=== PATIENT | female | born 1960 | race Caucasian/White ===

== ENCOUNTER 2018-03-18 14:45 | Inpatient (IN) | payer OTHER ==
--- NOTE | 2018-03-18 15:31 | C.PDOC ---
History Of Present Illness 58 year old female is sent to the emergency department by her PCP Dr. Matthews for evaluation of chronic headache for one month and chronic right leg pain for two months. Patient states that she is having difficult walking due to the pain in her right leg. Otherwise, she denies weakness, numbness, fever, chills, nausea, and vomiting. Patient reports that she underwent a breast biopsy with Dr. Cruz on Monday03-16-18. Time Seen by Provider: 03/18/18 15:31 Chief Complaint (Nursing): Breast Problem History Per: Patient History/Exam Limitations: no limitations Onset/Duration Of Symptoms: Other (headache for one month, right leg pain for two months) Current Symptoms Are (Timing): Still Present Past Medical History Reviewed: Historical Data, Nursing Documentation, Vital Signs Vital Signs: Last Vital Signs Temp 98.6 F 03/18/18 14:56 Pulse 79 03/18/18 14:56 Resp 17 03/18/18 14:56 BP 149/93 H 03/18/18 14:56 Pulse Ox 100 03/18/18 14:56 - Medical History PMH: HTN, Hypothyroidism, Rheumatoid Arthritis Surgical History: No Surg Hx Family History: States: No Known Family Hx - Social History Hx Alcohol Use: No Hx Substance Use: No - Immunization History Hx Tetanus Toxoid Vaccination: No Hx Influenza Vaccination: No Hx Pneumococcal Vaccination: No Review Of Systems Except As Marked, All Systems Reviewed And Found Negative. Constitutional: Negative for: Fever, Sweats Gastrointestinal: Negative for: Nausea, Vomiting Musculoskeletal: Positive for: Leg Pain (right leg) Neurological: Positive for: Headache Physical Exam - Physical Exam Appears: Non-toxic, No Acute Distress Skin: Normal Color, Warm, Dry Head: Atraumatic, Normacephalic Eye(s): bilateral: Normal Inspection, PERRL, EOMI Neck: Normal, Supple Chest: Symmetrical, No Tenderness Cardiovascular: Rhythm Regular, No Murmur Respiratory: No Rales, No Rhonchi, No Wheezing Gastrointestinal/Abdominal: Soft, No Tenderness, No Guarding, No Rebound Extremity: Normal ROM, No Tenderness Neurological/Psych: Oriented x3, Normal Speech, Normal Cognition ED Course And Treatment - Laboratory Results Result Diagrams: 03/18/18 16:37 03/18/18 16:37 O2 Sat by Pulse Oximetry: 100 (RA) Pulse Ox Interpretation: Normal Medical Decision Making Medical Decision Making: Plan: Bloodbank Type and Screen CMP Magnesium CBC MRI Brain NaCl IV Fluids [place]land 10mg IVP Valium 2mg PO Patient's MRI showed possible metastasized cancer of the spine. Spoke with Dr. Matthews who requested an MRI of the brain and observation. pt in NAD, agreeable to admission Disposition - Disposition Disposition: HOSPITALIZED Disposition Time: 17:36 Condition: GOOD - Clinical Impression Clinical Impression: Intractable headache - Scribe Statement The provider has reviewed the documentation as recorded by the Scribe (Bridger Lo) Provider Attestation: All medical record entries made by the Scribe were at my direction and personally dictated by me. I have reviewed the chart and agree that the record accurately reflects my personal performance of the history, physical exam, medical decision making, and the department course for this patient. I have also personally directed, reviewed, and agree with the discharge instructions and disposition.
[2018-03-18] MEDS ORDERED: Sodium Chloride 0.9% 1,000 ML ONE (16:25)
[2018-03-18] MEDS: Sodium Chloride 0.9% 1,000 ML IV SCH ×2 (16:35→20:03)
[2018-03-18 16:40] LABS: BASO # 0.1 K/uL (0.0-0.2); EOS # 0.1 K/uL (0.0-0.7); EOS % 2.5 % (0.0-4.0); HEMOGLOBIN 13.6 g/dL (11.0-16.0); LYMPH # 1.8 K/uL (1.0-4.3); LYMPH % 33.8 % (20.0-40.0); MEAN CELL VOLUME 86.9 fL (81.0-99.0); MEAN CORPUSCULAR HEMOGLOBIN 30.5 pg (27.0-31.0); MEAN CORPUSCULAR HGB CONC 35.1 g/dL (33.0-37.0); MONO # 0.4 K/uL (0.0-0.8); MONO % 7.6 % (0.0-10.0); NEUT # 2.9 K/uL (1.8-7.0); NEUT % 55.1 % (50.0-75.0); NRBC % 0.1 % (0.0-2.0); RBC 4.44 Mil/uL (3.80-5.20); RED CELL DISTRIBUTION WIDTH 12.9 % (11.5-14.5); WHITE BLOOD COUNT 5.2 K/uL (4.8-10.8)
[2018-03-18 17:01] LABS: ALB/GLOB RATIO 1.3 (1.0-2.1); ALBUMIN 4.2 g/dL (3.5-5.0); ALT/SGPT 59 U/L (9-52); AST/SGOT 55 U/L (14-36); BLOOD UREA NITROGEN 17 mg/dL (7-17); CALCIUM 9.3 mg/dl (8.6-10.4); GFR NON-AFRICAN AMERICAN > 60
[2018-03-19] MEDS: Sodium Chloride 0.9% 1,000 ML IV SCH ×4 (02:27→19:45)
--- NOTE | 2018-03-19 05:22 | CP.PCM.CON ---
History of Present Illness - History of Present Illness History of Present Illness: General Surgery Consult For Dr. Cruz Consult : R/o inflamatory breast CA This is a 58F with a PMH of HTN, RA, Hypothyroidism. She presents to the ED today due to right sided head pain and leg pain. She reports that the headache has been for the last 2 months. Its worse with extraocular eye motions. He leg pain has began recently she reports that it comes out of no where it is not particularly associated with any kind of physical stimuli. It shoots down the back of her leg in a sciatic distribution and sometimes her knee hurts. She reports she has been seeing Dr. Cruz in her office for redness and heaviness of her right breast. This past week during her visit she reports that she has been started on antifungals. She reports that the erythema has improved however her right breast is heaviness is consistent. She denies any discharge or tenderness. She denies any fevers or chills, chest pain or SOB or any other concerning symptoms. PMH: HTN, Hypothyroid, RA PSH: Right shoulder surgery ALL: Clarithromycin, PCN, Sulfa Social: Denies Vices Review of Systems - Review of Systems Review of Systems: 12 point review of symptoms conducted and negative except where noted above. Past Patient History - Past Social History Smoking Status: Never Smoked - CARDIAC Hx Hypertension: Yes - ENDOCRINE/METABOLIC Hx Hypothyroidism: Yes - MUSCULOSKELETAL/RHEUMATOLOGICAL Hx Rheumatoid Arthritis: Yes - PSYCHIATRIC Hx Substance Use: No Meds Allergies/Adverse Reactions: Allergies Allergy/AdvReac Type Severity Reaction Status Date / Time clarithromycin [From Biaxin] Allergy RASH Verified 03/18/18 15:05 Penicillins Allergy RASH Verified 03/18/18 14:57 Sulfa (Sulfonamide Allergy RASH Verified 03/18/18 14:57 Antibiotics) - Medications Medications: Current Medications Bisoprolol Fumarate/HCTZ (Ziac 2.5-6.25 Mg) 1 tab PO DAILY [facility] Fluconazole (Diflucan) 150 mg PO DAILY [facility] Gabapentin (Neurontin) 100 mg PO BID [facility] Hydroxychloroquine Sulfate (Plaquenil) 200 mg PO BID [facility]; Protocol Sodium Chloride (Sodium Chloride 0.9%) 1,000 mls @ 100 mls/hr IV .Q10H [facility] Last Admin: 03/19/18 05:13 Dose: 100 mls/hr Influenza Virus Vaccine (Fluzone Quad [id number]) 60 mcg IM .ONCE ONE Stop: 03/20/18 10:01 Levothyroxine Sodium (Synthroid) 75 mcg PO DAILY@0630 [facility] Morphine Sulfate (Morphine) 2 mg IVP Q4 PRN PRN Reason: Pain, moderate (4-7) Last Admin: 03/19/18 02:06 Dose: 2 mg Pneumococcal Polyvalent Vaccine (Pneumovax 23 Vaccine) 0.5 ml IM .ONCE ONE Stop: 03/20/18 10:01 Physical Exam - Constitutional Appears: Non-toxic, No Acute Distress - Head Exam Head Exam: ATRAUMATIC, NORMOCEPHALIC - Eye Exam Eye Exam: EOMI - ENT Exam ENT Exam: Mucous Membranes Moist - Respiratory Exam Respiratory Exam: NORMAL BREATHING PATTERN - Cardiovascular Exam Cardiovascular Exam: +S1, +S2 Additional comments: Breast exam conducted with the nurse present. Large breasts, no significant erythema notes, no peude orange noted, no nipple retraction. - GI/Abdominal Exam GI & Abdominal Exam: Soft. absent: Tenderness - Neurological Exam Neurological exam: Alert, Oriented x3 - Psychiatric Exam Psychiatric exam: Normal Affect, Normal Mood - Skin Skin Exam: Dry, Intact Results - Vital Signs Recent Vital Signs: Last Vital Signs Temp 96.7 F L 03/18/18 23:37 Pulse 69 03/18/18 23:37 Resp 18 03/18/18 23:37 BP 100/64 03/18/18 23:37 Pulse Ox 98 03/19/18 02:29 - Labs Result Diagrams: 03/18/18 16:37 03/18/18 16:37 Labs: Laboratory Results - last 24 hr 03/18/18 03/18/18 03/18/18 16:37 16:37 16:37 WBC 5.2 RBC 4.44 Hgb 13.6 Hct 38.6 MCV 86.9 MCH 30.5 MCHC 35.1 RDW 12.9 Plt Count 289 MPV 8.0 Neut % (Auto) 55.1 Lymph % (Auto) 33.8 [place] % (Auto) 7.6 Eos % (Auto) 2.5 Baso % (Auto) 1.0 Neut # (Auto) 2.9 Lymph # (Auto) 1.8 [place] # (Auto) 0.4 Eos # (Auto) 0.1 Baso # (Auto) 0.1 Sodium 138 Potassium 4.0 Chloride 102 Carbon Dioxide 28 Anion Gap 12 BUN 17 Creatinine 0.6 L Est GFR ( Amer) > 60 Est GFR (Non-Af Amer) > 60 Random Glucose 113 H Calcium 9.3 Magnesium 1.9 Total Bilirubin 0.7 AST 55 H ALT 59 H Alkaline Phosphatase 123 Total Protein 7.5 Albumin 4.2 Globulin 3.3 Albumin/Globulin Ratio 1.3 Blood Type A POSITIVE Antibody Screen Negative Assessment & Plan - Assessment and Plan (Free Text) Assessment: 58F with headache, leg pain and complaint of right breast heavyness and erythema Discussed case with Dr. Cruz, recent outpatient imaging viewed in her office show no signs of cancer at this time, patient has been started on antibiotics and antifungasl and has been showing an appropriate response. We will continue current antimicrobial therapy. No surgical intervention at this time. D/W Dr. Anthony Johnson PGY3
[2018-03-19] MEDS: Levothyroxine 75 MCG TAB PO SCH (06:03)
[2018-03-19] MEDS: Bisoprolol-HCTZ 2.5-6.25 mg Tab PO SCH (10:25)
--- NOTE | 2018-03-19 14:05 | CP.PCM.CON ---
<Jonah Murillo - Last Filed: 03/19/18 13:50> History of Present Illness - History of Present Illness History of Present Illness: PGY2 Neuro Consult Note for Dr. Ferrell Reason for consult: Intractable Headache x 1 month Patient is a 58 year old female with a past medical history of HTN, RA and hypothyroidism presenting to the hospital with a complaint of a headache for 1 month and right sided leg pain for 2 months. The headache has been constant and is located on both sides of her temples and is rated a 7 out of 10 on a pain scale. The headache is worse with eye movement and bright lights. Patient has no previous history of headaches or migraines. She has attempted to take Tylenol and Motrin but has little resolution of her symptoms. Patient also reports right sided leg pain that radiates down her buttocks and into her right leg. The pain is located on the posterior and anterior portions of her right leg. She feels weak and is having difficultly walking secondary to the pain. She denies any trauma to the leg. She reports that her doctors informed her that she has an infection in her spine but she does not know what it is from. She is unsure of her diagnosis. Per ED note, an outpatient MRI showed possible mets to the spine. Patient also had a breast biopsy with Dr. Cruz (Surgery) on 03/16/18. Patient denies any fevers, chills, nausea, vomiting, diarrhea, constipation, bladder/bowel incontinence, numbness, tingling or vision changes. PMH: HTN, Hypothyroid, RA PSH: Right shoulder surgery, Right Breast Biopsy (03/16/18) ALL: Clarithromycin, PCN, Sulfa Social: Denies Vices Review of Systems - Review of Systems All systems: reviewed and no additional remarkable complaints except - Constitutional Constitutional: As Per HPI. absent: Chills, Fatigue, Fever - EENT Eyes: As Per HPI, Pain, Photophobia. absent: Change in Vision, Decreased Night Vision, Floaters, Loss of Peripheral Vision - Breasts Breasts: As Per HPI - Cardiovascular Cardiovascular: As Per HPI. absent: Chest Pain - Respiratory Respiratory: As Per HPI. absent: Cough - Gastrointestinal Gastrointestinal: As Per HPI. absent: Abdominal Pain, Constipation, Diarrhea, Nausea, Vomiting - Genitourinary Genitourinary: As Per HPI. absent: Urinary Incontinence - Integumentary Integumentary: As Per HPI - Neurological Neurological: As Per HPI, Abnormal Gait, Headaches, Weakness. absent: Abnormal Hearing, Abnormal Movements, Abnormal Speech, Behavioral Changes, Convulsions, Disequilibrium, Dizziness, Numbness, Frequent Falls, Loss of Vision, Paresthesias, Syncope, Tingling, Tremor, Vertigo - Psychiatric Psychiatric: As Per HPI - Endocrine Endocrine: As Per HPI - Hematologic/Lymphatic Hematologic: As Per HPI Past Patient History - Past Social History Smoking Status: Never Smoked - CARDIAC Hx Hypertension: Yes - ENDOCRINE/METABOLIC Hx Hypothyroidism: Yes - MUSCULOSKELETAL/RHEUMATOLOGICAL Hx Rheumatoid Arthritis: Yes - PSYCHIATRIC Hx Substance Use: No Meds Allergies/Adverse Reactions: Allergies Allergy/AdvReac Type Severity Reaction Status Date / Time clarithromycin [From Biaxin] Allergy RASH Verified 03/18/18 15:05 Penicillins Allergy RASH Verified 03/18/18 14:57 Sulfa (Sulfonamide Allergy RASH Verified 03/18/18 14:57 Antibiotics) - Medications Medications: Current Medications Bisoprolol Fumarate/HCTZ (Ziac 2.5-6.25 Mg) 1 tab PO DAILY [facility] Last Admin: 03/19/18 10:25 Dose: 1 tab Clindamycin HCl (Cleocin) 300 mg PO TID [facility]; Protocol Last Admin: 03/19/18 10:35 Dose: 300 mg Fluconazole (Diflucan) 150 mg PO DAILY [facility] Last Admin: 03/19/18 10:24 Dose: 150 mg Gabapentin (Neurontin) 100 mg PO BID [facility] Last Admin: 03/19/18 10:26 Dose: 100 mg Heparin Sodium (Porcine) (Heparin) 5,000 units SC Q12 [facility] Last Admin: 03/19/18 10:40 Dose: Not Given Hydroxychloroquine Sulfate (Plaquenil) 200 mg PO BID [facility]; Protocol Last Admin: 03/19/18 10:24 Dose: 200 mg Sodium Chloride (Sodium Chloride 0.9%) 1,000 mls @ 100 mls/hr IV .Q10H [facility] Last Admin: 03/19/18 05:13 Dose: 100 mls/hr Influenza Virus Vaccine (Fluzone Quad [id number]) 60 mcg IM .ONCE ONE Stop: 03/20/18 10:01 Ketorolac Tromethamine (Toradol) 30 mg IVP Q6 [facility] Levothyroxine Sodium (Synthroid) 75 mcg PO DAILY@0630 [facility] Last Admin: 03/19/18 06:03 Dose: 75 mcg Metoclopramide HCl (Reglan) 10 mg IVP ACHS [facility] Last Admin: 03/19/18 11:53 Dose: 10 mg Morphine Sulfate (Morphine) 2 mg IVP Q4 PRN PRN Reason: Pain, moderate (4-7) Last Admin: 03/19/18 06:16 Dose: 2 mg Pantoprazole Sodium (Protonix Inj) 40 mg IVP DAILY [facility] Last Admin: 03/19/18 11:53 Dose: 40 mg Pneumococcal Polyvalent Vaccine (Pneumovax 23 Vaccine) 0.5 ml IM .ONCE ONE Stop: 03/20/18 10:01 Physical Exam - Constitutional Appears: Well, Non-toxic, No Acute Distress - Head Exam Head Exam: ATRAUMATIC, NORMAL INSPECTION, NORMOCEPHALIC - Eye Exam Eye Exam: EOMI, Normal appearance, PERRL - ENT Exam ENT Exam: Mucous Membranes Moist - Neck Exam Neck exam: Negative for: Lymphadenopathy, Tenderness - Respiratory Exam Respiratory Exam: NORMAL BREATHING PATTERN. absent: Respiratory Distress - Extremities Exam Extremities exam: Negative for: calf tenderness, pedal edema, tenderness - Neurological Exam Neurological exam: Abnormal Gait, Alert, CN II-XII Intact, Oriented x3 Additional comments: Brisk reflexes on right lower extremity, positive straight leg test, strength 4/5 on right leg, 5/5 on left leg, decreased sensation on right leg compared to left in L3-L5 distribution. - Expanded Neurological Exam Expanded Patient oriented to: person, place, time Speech: Fluid Speech Cranial nerves: EOM's Intact: Normal, Facial Palsey w/Forehead Movement: Normal, Facial Palsey w/o Forehead Movement: Normal, Facial Sensation: Normal, Gag Reflex: Normal, Nystagmus: Normal, Tongue Deviation: Normal Ataxia: No Upper motor neuron: Darian Neglect: Normal, Pronator Drift: Normal Sensory exam: Lower Extremity Light Touch: Abnormal Right (decreased on right leg compared to left leg) Neuro motor strength exam: Left Upper Extremity: 5, Right Upper Extremity: 5, Left Lower Extremity: 5, Right Lower Extremity: 4 DTR: Achilles Tendon Left: 2+, Achilles Tendon Right: 3+, Patellar Left: 2+, Patellar Right: 3+ Coma Scale Eye Opening: SPONTANEOUS Coma Scale Motor Response: OBEYS COMMANDS Coma Scale Verbal: Oriented Coma Scale Total: 15 - Psychiatric Exam Psychiatric exam: Normal Affect, Normal Mood - Skin Skin Exam: Dry, Intact, Normal Color, Warm Results - Vital Signs Recent Vital Signs: Last Vital Signs Temp 97.6 F 03/19/18 08:17 Pulse 59 L 03/19/18 08:17 Resp 20 03/19/18 08:17 BP 138/84 03/19/18 08:17 Pulse Ox 96 03/19/18 08:17 - Labs Result Diagrams: 03/18/18 16:37 03/18/18 16:37 Labs: Laboratory Results - last 24 hr 03/18/18 03/18/18 03/18/18 16:37 16:37 16:37 WBC 5.2 RBC 4.44 Hgb 13.6 Hct 38.6 MCV 86.9 MCH 30.5 MCHC 35.1 RDW 12.9 Plt Count 289 MPV 8.0 Neut % (Auto) 55.1 Lymph % (Auto) 33.8 [place] % (Auto) 7.6 Eos % (Auto) 2.5 Baso % (Auto) 1.0 Neut # (Auto) 2.9 Lymph # (Auto) 1.8 [place] # (Auto) 0.4 Eos # (Auto) 0.1 Baso # (Auto) 0.1 Sodium 138 Potassium 4.0 Chloride 102 Carbon Dioxide 28 Anion Gap 12 BUN 17 Creatinine 0.6 L Est GFR ( Amer) > 60 Est GFR (Non-Af Amer) > 60 Random Glucose 113 H Calcium 9.3 Magnesium 1.9 Total Bilirubin 0.7 AST 55 H ALT 59 H Alkaline Phosphatase 123 Total Protein 7.5 Albumin 4.2 Globulin 3.3 Albumin/Globulin Ratio 1.3 Blood Type A POSITIVE Antibody Screen Negative Assessment & Plan (1) Intractable headache Assessment and Plan: Based on the history obtained from the patient with no personal or family history of migraines, a diagnosis of migraines are less likely. During exam patient appeared well and did not experience any photophobia, pain with eye movement or nausea. Due to distribution of headache will need to r/o temporal arteritis. In addition, we recommend the followin. ESR/CRP 2. Brain MRI w/ and w/o 3. Toradol 30mg IVP q6h Status: Acute (2) Hyperreflexia of lower extremity Assessment and Plan: Hyperreflexia of right leg, pain, decreased sensation and positive straight leg test on right is concerning for possible disk herniation or additional pathology. ED note reports patient has prior MRI that showed possible mets to spine, per PMD. Will obtain lumbo-sacral MRI to further evaluate. Will make additional recommendations once results are obtained. Case discussed and all medical management per Dr. Rod Murillo PGY2 Status: Acute <Ida Ferrell - Last Filed: 03/19/18 23:24> Meds - Medications Medications: Current Medications Bisoprolol Fumarate/HCTZ (Ziac 2.5-6.25 Mg) 1 tab PO DAILY [facility] Last Admin: 03/19/18 10:25 Dose: 1 tab Clindamycin HCl (Cleocin) 300 mg PO TID [facility]; Protocol Last Admin: 03/19/18 18:00 Dose: 300 mg Dexamethasone (Decadron Inj) 4 mg IV Q6 [facility] Fluconazole (Diflucan) 150 mg PO DAILY [facility] Last Admin: 03/19/18 10:24 Dose: 150 mg Gabapentin (Neurontin) 100 mg PO BID [facility] Last Admin: 03/19/18 18:01 Dose: 100 mg Heparin Sodium (Porcine) (Heparin) 5,000 units SC Q12 [facility] Last Admin: 03/19/18 21:41 Dose: 5,000 units Hydroxychloroquine Sulfate (Plaquenil) 200 mg PO BID [facility]; Protocol Last Admin: 03/19/18 18:00 Dose: 200 mg Sodium Chloride (Sodium Chloride 0.9%) 1,000 mls @ 100 mls/hr IV .Q10H [facility] Last Admin: 03/19/18 19:45 Dose: 100 mls/hr Influenza Virus Vaccine (Fluzone Quad [id number]) 60 mcg IM .ONCE ONE Stop: 03/20/18 10:01 Ketorolac Tromethamine (Toradol) 30 mg IVP Q6 [facility] Stop: 03/24/18 18:01 Levothyroxine Sodium (Synthroid) 75 mcg PO DAILY@0630 [facility] Last Admin: 03/19/18 06:03 Dose: 75 mcg Metoclopramide HCl (Reglan) 10 mg IVP ACHS [facility] Last Admin: 03/19/18 21:41 Dose: 10 mg Morphine Sulfate (Morphine) 2 mg IVP Q4 PRN PRN Reason: Pain, moderate (4-7) Last Admin: 03/19/18 06:16 Dose: 2 mg Pantoprazole Sodium (Protonix Inj) 40 mg IVP DAILY [facility] Last Admin: 03/19/18 11:53 Dose: 40 mg Pneumococcal Polyvalent Vaccine (Pneumovax 23 Vaccine) 0.5 ml IM .ONCE ONE Stop: 03/20/18 10:01 Results - Vital Signs Recent Vital Signs: Last Vital Signs Temp 97.4 F L 03/19/18 17:07 Pulse 66 03/19/18 17:07 Resp 20 03/19/18 17:07 BP 133/83 03/19/18 17:07 Pulse Ox 100 03/19/18 17:29 - Labs Result Diagrams: 03/18/18 16:37 03/18/18 16:37 Assessment & Plan - Assessment and Plan (Free Text) Assessment: MRI Brain and MRI Lumbar spine reviewed; MRI Brain shows multiple areas of metastases, including brainstem and cortical regions with significant vasogenic edema. MRI lumbar spine : shows multiple areas of metastases largest one in L3 region. 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 I am concerned that she may have undiagnosed breast ca, thyroid or lung ca. Plan; 1. Decadron 8 mg q [address] chest abdomen and pelvis. with contrast our team will follow Cisco ferrell
--- NOTE | 2018-03-19 17:00 | MRI ---
Date of service: 03/19/2018 PROCEDURE: MRI BRAIN WITH AND WITHOUT CONTRAST HISTORY: intractable DURON COMPARISON: None available. TECHNIQUE: Multiplanar, multisequence MR images of the brain were obtained with and without intravenous contrast enhancement. FINDINGS: HEMORRHAGE: None DWI: No evidence of an acute or early subacute infarction. BRAIN PARENCHYMA: These examination is positive for vasogenic edema related foci scattered mildly involving both cerebellar hemispheres, bilateral frontal lobes, medial left basal ganglia and the right occipital lobe. The largest of these is identified at the right cerebellum measuring 4.1 x 3.4 x 2.9 cm with the next largest identified at the right occipital lobe measuring 1.4 x 1.8 x 1.8 cm (transverse by anteroposterior by superoinferior dimensions). Two left cerebellar foci are under 1 cm size with a 1 cm focus at the medial left basal ganglia/left thalamus and a solitary subcentimeter focus at the right frontal lobe superolaterally and 2 with the left frontal lobe. All foci enhance briskly and most compatible with metastatic disease. Further clinical correlation is advised including search for potential primary malignancy, if unknown. The largest lesion at the right cerebellar hemisphere is the only focus with associated significant mass effect with the 4th ventricle patent but partially effaced. Mass effect is exerted on the right side of the medulla and blanca with deformity of the right blanca apparent. No reactive changes seen in the blanca or the medulla at this time. Otherwise, intervening brain parenchyma as on the unremarkable except for borderline atrophy. VENTRICLES: Unremarkable. No hydrocephalus. CRANIUM: Unremarkable. ORBITS: Grossly unremarkable. PARANASAL SINUSES/MASTOIDS: Clear VASCULAR SYSTEM: Skull base flow voids intact. OTHER FINDINGS: None . IMPRESSION: Findings most compatible with multifocal metastasis above and below the tentorium with dominant lesion 4.1 cm exerting significant mass effect at the blanca and medulla but without reactive changes intrinsically in those portions of the brainstem. Fourth ventricle is partially effaced. No hydrocephalus at this time.
--- NOTE | 2018-03-19 17:17 | MRI ---
Date of service: 03/19/2018 PROCEDURE: MR LUMBAR SPINE WITH AND WITHOUT CONTRAST HISTORY: hyperreflexia and right sided leg pain COMPARISON: None available. TECHNIQUE: Multiecho multiplanar sequences were performed through the lumbar spine with and without the use of intravenous contrast. FINDINGS: Normal lumbar lordosis. Vertebral body heights are preserved. There is a water containing lesion at the S2 vertebral body which is well-circumscribed and does not expand the vertebral body potentially representing a benign nonaggressive solid or cystic lesion. Given brain metastasis identified in separate brain MRI without gadolinium, metastatic lesions not excluded and follow-up nuclear bone scan is recommended. In fact, abnormal signal changes seen in the matter of the sacral alae which may suppress on STIR imaging. A benign hemangioma is appreciate the L1 as well as separate focus at L3 which suppresses on STIR imaging. Conus medullaris unremarkable at the level of L1. Paraspinal soft tissues are unremarkable. No abnormal enhancement. T12-L1: No disc herniation, spinal canal stenosis or neural foraminal narrowing. L1-2: No disc herniation, spinal canal stenosis or neural foraminal narrowing. L2-3: No disc herniation, spinal canal stenosis or neural foraminal narrowing. L3-4: No disc herniation, spinal canal stenosis or neural foraminal narrowing. Minimal circumferential disc bulge identified. L4-5: No disc herniation, spinal canal stenosis or neural foraminal narrowing. Minimal circumferential disc bulge identified. L5-S1: No disc herniation, spinal canal stenosis or neural foraminal narrowing. Minimal circumferential disc bulge identified. OTHER FINDINGS: None. IMPRESSION: 1. No disc herniation or significant central canal or neural foraminal stenosis appreciated throughout the lumbar spine. No fracture or spondylolisthesis. 2. Abnormal matter signal change identified at the sacrum which may be benign but somewhat suspicious particularly at the bilateral sacral alae and follow-up nuclear bone scan is advised to exclude potential metastasis, particularly given brain metastasis seen in brain MRI performed today 03/19/2018.
[2018-03-20] MEDS: Dexamethasone 4 mg/1 ml IV SCH ×5 (00:17→20:39)
--- NOTE | 2018-03-20 02:19 | HP ---
HISTORY OF PRESENT ILLNESS: This is a 58-year-old [place] female with a history of hypothyroidism, hypertension and serologic test positive for systemic lupus, on Plaquenil, presented to my office with symptoms of persistent headache over the past 10 days. The patient's headache was not being relieved by different pain medications including NSAIDs and Tylenol. The patient was referred to emergency room for intractable headache. The patient was given diazepam and metoclopramide and admitted for further management including plan for MRI of the head with and without contrast. The patient denied to have similar headache before. Positive symptoms of nausea, but no vomiting. REVIEW OF SYSTEMS: The patient has pain on the right lower extremity that has been persistent for the past 2-3 weeks. The patient had an MRI as an outpatient that showed degenerative spine disease. The patient also was referred to Surgery two weeks prior to this admission for evaluation of right breast redness and inflammation, for which she was given antibiotics. Other review of systems is negative. ALLERGIES: POSITIVE FOR CLARITHROMYCIN, PENICILLIN AND SULFA. MEDICATIONS: As per MAR, reviewed and ordered. SOCIAL HISTORY: No history of smoking, EtOH or substance abuse. FAMILY HISTORY: Noncontributory. PAST MEDICAL HISTORY: As above. PHYSICAL EXAMINATION: GENERAL: The patient was not in any cardiopulmonary distress. VITAL SIGNS: Blood pressure 138/84, temperature 97.6, respiratory rate 20 and pulse 59. HEENT: Pupils equal and reactive to light. Normal-appearing mucosa of the conjunctivae, oropharynx and nasal membrane mucosa. NECK: Supple. No JVD. No carotid bruit. No lymph node. No thyromegaly. CHEST AND LUNGS: Bilateral symmetrical expansion. Good air exchange. No rales, no rhonchi. CARDIOVASCULAR SYSTEM: PMI not localized. S1, S2. No additional sounds. ABDOMEN: Normoactive bowel sounds. No tenderness. No organomegaly. No masses. EXTREMITIES: No cyanosis, no clubbing, no edema. CENTRAL NERVOUS SYSTEM: Alert, awake, oriented x3. No neurological deficit could be appreciated. ASSESSMENT: 1. Persistent headache. Differential diagnosis includes rule out intracranial mass effect. 2. Hypertension. 3. Hypothyroidism. 4. Right lower extremity referred pain. PLAN: Follow up the MRI of the head and MRI of the lumbar spine. Follow recommendations of the neurologist and Surgery. We will give Toradol for pain and metoclopramide. [facility] MD [facility] # [id number]
[2018-03-20] MEDS: Sodium Chloride 0.9% 1,000 ML IV SCH ×4 (05:41→18:33)
[2018-03-20] MEDS: Levothyroxine 75 MCG TAB PO SCH (05:44)
[2018-03-20] MEDS ORDERED: Pneumococcal 23-Valent Vaccine IM ONE (10:00)
[2018-03-20] MEDS ORDERED: Influenza Vaccine 60 MCG/0.5 ML SYR (3 yr & up) IM ONE (10:00)
--- NOTE | 2018-03-20 10:05 | CP.PCM.CON ---
History of Present Illness - History of Present Illness History of Present Illness: dictated large R cerebellar mass requires urgent extirpation d/w Pt scheduled for AM Past Patient History - Past Social History Smoking Status: Never Smoked - CARDIAC Hx Hypertension: Yes - ENDOCRINE/METABOLIC Hx Hypothyroidism: Yes - MUSCULOSKELETAL/RHEUMATOLOGICAL Hx Rheumatoid Arthritis: Yes - PSYCHIATRIC Hx Substance Use: No Meds Allergies/Adverse Reactions: Allergies Allergy/AdvReac Type Severity Reaction Status Date / Time clarithromycin [From Biaxin] Allergy RASH Verified 03/18/18 15:05 Penicillins Allergy RASH Verified 03/18/18 14:57 Sulfa (Sulfonamide Allergy RASH Verified 03/18/18 14:57 Antibiotics) - Medications Medications: Current Medications Bisoprolol Fumarate/HCTZ (Ziac 2.5-6.25 Mg) 1 tab PO DAILY [facility] Last Admin: 03/19/18 10:25 Dose: 1 tab Clindamycin HCl (Cleocin) 300 mg PO TID [facility]; Protocol Last Admin: 03/19/18 18:00 Dose: 300 mg Dexamethasone (Decadron Inj) 4 mg IV Q6 [facility] Last Admin: 03/20/18 07:01 Dose: Not Given Fluconazole (Diflucan) 150 mg PO DAILY [facility] Last Admin: 03/19/18 10:24 Dose: 150 mg Gabapentin (Neurontin) 100 mg PO BID [facility] Last Admin: 03/19/18 18:01 Dose: 100 mg Heparin Sodium (Porcine) (Heparin) 5,000 units SC Q12 [facility] Last Admin: 03/19/18 21:41 Dose: 5,000 units Hydroxychloroquine Sulfate (Plaquenil) 200 mg PO BID [facility]; Protocol Last Admin: 03/19/18 18:00 Dose: 200 mg Sodium Chloride (Sodium Chloride 0.9%) 1,000 mls @ 100 mls/hr IV .Q10H [facility] Last Admin: 03/20/18 05:41 Dose: 100 mls/hr Ketorolac Tromethamine (Toradol) 30 mg IVP Q6 [facility] Stop: 03/24/18 18:01 Last Admin: 03/20/18 05:45 Dose: 30 mg Levothyroxine Sodium (Synthroid) 75 mcg PO DAILY@0630 [facility] Last Admin: 03/20/18 05:44 Dose: 75 mcg Metoclopramide HCl (Reglan) 10 mg IVP ACHS [facility] Last Admin: 03/20/18 08:26 Dose: Not Given Morphine Sulfate (Morphine) 2 mg IVP Q4 PRN PRN Reason: Pain, moderate (4-7) Last Admin: 03/19/18 06:16 Dose: 2 mg Pantoprazole Sodium (Protonix Inj) 40 mg IVP DAILY [facility] Last Admin: 03/19/18 11:53 Dose: 40 mg Results - Vital Signs Recent Vital Signs: Last Vital Signs Temp 98.5 F 03/20/18 00:00 Pulse 77 03/20/18 00:00 Resp 20 03/20/18 00:00 BP 106/69 03/20/18 00:00 Pulse Ox 97 03/20/18 04:14 - Labs Result Diagrams: 03/18/18 16:37 03/18/18 16:37 Labs: Laboratory Results - last 24 hr 03/20/18 03/20/18 07:11 07:11 ESR 53 H C-Reactive Protein 12.00 H
[2018-03-20] MEDS ORDERED: Iohexol 240 (50 ml) PO ONE (10:15)
[2018-03-20] MEDS: Bisoprolol-HCTZ 2.5-6.25 mg Tab PO SCH (10:59)
--- NOTE | 2018-03-20 11:06 | CP.PCM.PN ---
Subjective - Date & Time of Evaluation Date of Evaluation: 03/20/18 Time of Evaluation: 10:20 - Subjective Subjective: PGY2 Neurology Note for Dr. Velasco Patient seen and examined this morning at bedside. Patient's brain MRI showed mets to the brain with mass effect causing narrowing of the fourth ventricle. She was seen by neurosurgery this morning and was informed that she needs to go to the OR tomorrow morning and for decompression of the fourth ventricle. Patient and her were unaware of the patient's diagnosis of cancer with mets to brain and spine. They are very upset and very nervous. Patient states she is feeling well otherwise and has no complaints at this time. Objective - Vital Signs/Intake and Output Vital Signs (last 24 hours): Temp Pulse Resp BP Pulse Ox 98.5 F 77 20 106/69 97 03/20/18 00:00 03/20/18 00:00 03/20/18 00:00 03/20/18 00:00 03/20/18 04:14 Intake and Output: 03/20/18 03/20/18 06:59 18:59 Intake Total 800 920 Balance 800 920 - Medications Medications: Current Medications Bisoprolol Fumarate/HCTZ (Ziac 2.5-6.25 Mg) 1 tab PO DAILY [facility] Last Admin: 03/20/18 10:59 Dose: 1 tab Clindamycin HCl (Cleocin) 300 mg PO TID [facility]; Protocol Last Admin: 03/20/18 10:59 Dose: 300 mg Dexamethasone (Decadron Inj) 4 mg IV Q6 [facility] Last Admin: 03/20/18 07:01 Dose: Not Given Fluconazole (Diflucan) 150 mg PO DAILY [facility] Last Admin: 03/20/18 10:58 Dose: 150 mg Gabapentin (Neurontin) 100 mg PO BID [facility] Last Admin: 03/20/18 10:57 Dose: 100 mg Heparin Sodium (Porcine) (Heparin) 5,000 units SC Q12 [facility] Last Admin: 03/20/18 10:58 Dose: 5,000 units Hydroxychloroquine Sulfate (Plaquenil) 200 mg PO BID [facility]; Protocol Last Admin: 03/20/18 10:59 Dose: 200 mg Sodium Chloride (Sodium Chloride 0.9%) 1,000 mls @ 100 mls/hr IV .Q10H [facility] Last Admin: 03/20/18 05:41 Dose: 100 mls/hr Levothyroxine Sodium (Synthroid) 75 mcg PO DAILY@0630 [facility] Last Admin: 03/20/18 05:44 Dose: 75 mcg Metoclopramide HCl (Reglan) 10 mg IVP ACHS [facility] Last Admin: 03/20/18 08:26 Dose: Not Given Morphine Sulfate (Morphine) 2 mg IVP Q4 PRN PRN Reason: Pain, moderate (4-7) Last Admin: 03/19/18 06:16 Dose: 2 mg Pantoprazole Sodium (Protonix Inj) 40 mg IVP DAILY [facility] Last Admin: 03/20/18 10:57 Dose: 40 mg - Labs Labs: 03/18/18 16:37 03/18/18 16:37 - Constitutional Appears: No Acute Distress - Head Exam Head Exam: ATRAUMATIC, NORMAL INSPECTION, NORMOCEPHALIC - Eye Exam Eye Exam: EOMI, Normal appearance, PERRL Pupil Exam: NORMAL ACCOMODATION - ENT Exam ENT Exam: Mucous Membranes Moist - Respiratory Exam Respiratory Exam: NORMAL BREATHING PATTERN. 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 Fourth ventricle is partially effaced. No hydrocephalus at this time. Lumbar Spine MRI 03/19/18: No disc herniation or significant central canal or neural foraminal stenosis appreciated throughout the lumbar spine. No fracture or spondylolisthesis. Abnormal matter signal change identified at the sacrum which may be benign but somewhat suspicious particularly at the bilateral sacral alae and follow-up nuclear bone scan is advised to exclude potential metastasis, particularly given brain metastasis seen in brain MRI performed today 03/19/2018. 1. Neuro Surgery planning for decompression of fourth ventricle in AM 2. ICU eval for possible transfer and closer evaluation 3. Decadron 8mg IVP q8h 4. CT Chest, Abd and Pelvis with contrast to evaluation for primary source. Neuro team will continue to follow Case discussed with Dr. Rod Mckenzie Chidi PGY2
[2018-03-20 11:17] LABS: INR 1.1; PROTHROMBIN TIME 12.5 SECONDS (9.7-12.2)
[2018-03-20] MEDS ORDERED: Iodixanol 320 MG/ML 100 ML BOTTLE IV ONE (15:08)
--- NOTE | 2018-03-20 16:29 | CT ---
Date of service: 03/20/2018 CT chest, abdomen, and pelvis with IV contrast Indication: metastases Technique: Contiguous axial images of the chest, abdomen, and pelvis. Coronal and Sagittal reformats generated and reviewed. This CT exam was performed using 1 or more of the following dose reduction techniques: Automated exposure control, adjustment of the MAA and/or kV according to patient size, and/or use of iterative reconstruction technique. Contrast: 100 mL Visipaque IV Radiation dose: Total exam DLP = 769.23 MGy-cm. Comparison: Pelvic ultrasound performed 09/13/17 Findings: Visualized portions of the inferior thyroid gland appear unremarkable. The mediastinal and hilar vascular structures appear within normal limits. The heart appears within normal limits of size. No focal consolidation. No pleural effusion. No pneumothorax. No suspicious pulmonary nodules measuring greater than 5 mm. Marked irregular skin thickening of the right breast with asymmetric breast soft tissue. Right axillary adenopathy measuring up to 2.2 cm in short axis on the right. 6 mm nodule within the medial left breast (series 3, image 65). 15 mm posterior right hepatic lobe hypodense mass. Abnormal appearance of bilateral adrenal glands likely mixture of nodules and hypertrophy. The spleen, pancreas, and gallbladder appear unremarkable. The kidneys enhance symmetrically. No evidence of hydronephrosis or obstructing calculi. The stomach is nondistended. The bowel loops appear within normal limits of caliber without evidence of intestinal obstruction. There is no definite free air. The appendix is not identified. No secondary signs of acute appendicitis. Uterus is present. The urinary bladder appears unremarkable. Small indeterminate lucencies involving the proximal femur, lesser trochanter unclear significance. Impression: Marked irregular skin thickening of the right breast with asymmetric breast soft tissue. 6 mm nodule within the medial left breast. Correlate for history of breast cancer. Recommend correlation with dedicated breast imaging. Right axillary adenopathy measuring up to 2.2 cm in short axis on the right; appearance most consistent with metastatic disease. Indeterminate 15 mm posterior right hepatic lobe hypodense mass. Metastatic disease must be excluded. If indicated, dedicated cross-sectional imaging may be considered. Abnormal appearance of bilateral adrenal glands likely mixture of nodules and hypertrophy. Dedicated adrenal gland CT or MRI may be considered for further characterization. Metastatic disease must be excluded. Small indeterminate lucencies involving the proximal femur, lesser trochanter unclear significance. In the setting of breast cancer, if clinical concern for osseous metastases, recommend further evaluation with nuclear medicine bone scan. Additional findings as above.
--- NOTE | 2018-03-20 16:37 | CP.PCM.CON ---
<RayGómez garcia - Last Filed: 03/20/18 18:05> History of Present Illness - History of Present Illness History of Present Illness: PGY-1 ICU Consult note for Dr. Rae Patient is a 58 year old female with a past medical history of HTN, RA, and hypothyroidism presenting with a headache for 1 month and right sided leg pain for 3 months. The headache has been constant and is located on both sides of her head. The headache is worse with eye movement. Patient has no previous history of headaches or migraines. She has tried to take Tylenol and Motrin but states that they do not help with her symptoms. Patient also reports right sided leg pain that radiates down her buttocks and into her right leg. The pain is located on the posterior and anterior portions of her right leg. She feels weak and is having difficultly walking secondary to the pain. She denies any trauma to the leg. Patient is also complaining of right breast pain that she has had for at least 2 months. She had a mammogram in January that showed mastitis vs inflammatory breast carcinoma. She did not follow up for a breast biopsy or breast MRI yet. Patient denies any fevers, chills, nausea, vomiting, shortness of breath, chest pain, diarrhea, constipation, bladder/bowel incontinence, numbness, tingling or vision changes. PMD: Dr. Matthews PMHx: HTN, Hypothyroid, RA PSHx: Right rotator cuff surgery FMHx: Father had DM-2, denies family history of cancer Allergies: Clarithromycin, PCN, Sulfas, Avalox Social Hx: Denies tobacco, alcohol, and drug use. Patient worked as a clerk travel reservations at [employer] Medications: Levothyroxine 175mg, Hydrochloroquine 200mg, Bisoprolol/HTZ 2.5/6.25mg, Gabapentin 100mg, Protonix 40mg, Nabumetone 500mg Past Patient History - Past Social History Smoking Status: Never Smoked - CARDIAC Hx Hypertension: Yes - ENDOCRINE/METABOLIC Hx Hypothyroidism: Yes - MUSCULOSKELETAL/RHEUMATOLOGICAL Hx Falls: No Hx Rheumatoid Arthritis: Yes - PSYCHIATRIC Hx Substance Use: No Meds Allergies/Adverse Reactions: Allergies Allergy/AdvReac Type Severity Reaction Status Date / Time clarithromycin [From Biaxin] Allergy RASH Verified 03/18/18 15:05 Penicillins Allergy RASH Verified 03/18/18 14:57 Sulfa (Sulfonamide Allergy RASH Verified 03/18/18 14:57 Antibiotics) - Medications Medications: Current Medications Bisoprolol Fumarate/HCTZ (Ziac 2.5-6.25 Mg) 1 tab PO DAILY [facility] Last Admin: 03/20/18 10:59 Dose: 1 tab Clindamycin HCl (Cleocin) 300 mg PO TID [facility]; Protocol Last Admin: 03/20/18 13:56 Dose: 300 mg Dexamethasone (Decadron Inj) 8 mg IV Q8H [facility] Last Admin: 03/20/18 12:40 Dose: 8 mg Fluconazole (Diflucan) 150 mg PO DAILY [facility] Last Admin: 03/20/18 10:58 Dose: 150 mg Gabapentin (Neurontin) 100 mg PO BID [facility] Last Admin: 03/20/18 10:57 Dose: 100 mg Heparin Sodium (Porcine) (Heparin) 5,000 units SC Q12 [facility] Last Admin: 03/20/18 10:58 Dose: 5,000 units Hydroxychloroquine Sulfate (Plaquenil) 200 mg PO BID [facility]; Protocol Last Admin: 03/20/18 10:59 Dose: 200 mg Sodium Chloride (Sodium Chloride 0.9%) 1,000 mls @ 100 mls/hr IV .Q10H [facility] Last Admin: 03/20/18 13:49 Dose: Not Given Levothyroxine Sodium (Synthroid) 75 mcg PO DAILY@0630 [facility] Last Admin: 03/20/18 05:44 Dose: 75 mcg Metoclopramide HCl (Reglan) 10 mg IVP ACHS [facility] Last Admin: 03/20/18 12:46 Dose: Not Given Morphine Sulfate (Morphine) 2 mg IVP Q4 PRN PRN Reason: Pain, moderate (4-7) Last Admin: 03/19/18 06:16 Dose: 2 mg Pantoprazole Sodium (Protonix Inj) 40 mg IVP DAILY [facility] Last Admin: 03/20/18 10:57 Dose: 40 mg Physical Exam - Constitutional Appears: Non-toxic, No Acute Distress - Head Exam Head Exam: ATRAUMATIC, NORMOCEPHALIC - Eye Exam Eye Exam: Normal appearance - ENT Exam ENT Exam: Mucous Membranes Moist - Respiratory Exam Respiratory Exam: Clear to Auscultation Bilateral. absent: Rales, Rhonchi, Wheezes - Cardiovascular Exam Cardiovascular Exam: REGULAR RHYTHM. absent: +S1, +S2, Systolic Murmur - GI/Abdominal Exam GI & Abdominal Exam: Normal Bowel Sounds, Soft. absent: Tenderness - Extremities Exam Extremities exam: Positive for: normal inspection. Negative for: calf tenderness - Neurological Exam Neurological exam: Alert, CN II-XII Intact, Oriented x3 Additional comments: Sensations intact bilateral LE, muscle strength 4/5 on RLE and 5/5 LLE - Psychiatric Exam Psychiatric exam: Depressed, Normal Affect - Skin Skin Exam: Dry, Intact, Normal Color, Warm Results - Vital Signs Recent Vital Signs: Last Vital Signs Temp 98.5 F 03/20/18 00:00 Pulse 77 03/20/18 00:00 Resp 20 03/20/18 00:00 BP 106/69 03/20/18 00:00 Pulse Ox 97 03/20/18 04:14 - Labs Result Diagrams: 03/18/18 16:37 03/18/18 16:37 Labs: Laboratory Results - last 24 hr 03/20/18 03/20/18 03/20/18 07:11 07:11 10:52 ESR 53 H PT 12.5 H INR 1.1 C-Reactive Protein 12.00 H Assessment & Plan - Assessment and Plan (Free Text) Assessment: Patient is a 58 year old female with a past medical history of HTN, RA, and hypo thyroidism presenting with a headache for 1 month and right sided leg pain for 3 months. 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 Fourth ventricle is partially effaced. No hydrocephalus at this time. - Lumbar spine CT (03/19): No disc herniation or significant central canal or n eural foraminal stenosis appreciated throughout the lumbar spine. No fracture or spondylolisthesis. Abnormal matter signal change identified at the sacrum which may be benign but somewhat suspicious particularly at the bilateral sacral alae and follow-up nuclear bone scan is advised to exclude potential metastasis, particularly given brain metastasis seen in brain MRI performed today 03/19/2018. - Neurosurgery consulted, Dr. Bennett - Neurology consulted, Dr. John - Dexamethasone 8mg IV Q8 - Gabapentin 100mg PO BID - Neurosurgery planning for decompression of fourth ventricle in AM - NPO except for meds Pulm: - No acute issues Cardiovascular: - No acute issues Endo: - Continue home medication Levothyroxine 75mg PO QD GI: - Reglan 10mg IV ACHS - CT abd/pelvis/chest (03/20): Indeterminate 15 mm posterior right hepatic lobe hypodense mass. Metastatic disease must be excluded. If indicated, dedicated cross-sectional imaging may be considered. Abnormal appearance of bilateral adrenal glands likely mixture of nodules and hypertrophy. Dedicated adrenal gland CT or MRI may be considered for further characterization. Metastatic disease must be excluded. Small indeterminate lucencies involving the proximal femur, lesser trochanter unclear significance. In the setting of breast cancer, if clinical concern for osseous metastases, recommend further evaluation with nuclear medicine bone scan. - See full report Renal: - No acute issues Heme/onc: - Heme-onc consulted, Dr. Frost - Surgery consulted, Dr. Cruz - CT abd/pelvis/chest (03/20): Marked irregular skin thickening of the right breast with asymmetric breast soft tissue. 6 mm nodule within the medial left b reast. Correlate for history of breast cancer. Recommend correlation with dedicated breast imaging. Right axillary adenopathy measuring up to 2.2 cm in short axis on the right; appearance most consistent with metastatic disease. - See full report ID: - No acute issues Rheum: - Continue home medication for RA, Hydroxychloroquine 200mg PO BID Skin: - Rule out mastitis vs inflammatory breast carcinoma - Clindamycin 300mg PO TID Prophylaxis: - Protonix 40mg IV QD - SCD's - Chemical anticoagulants held for surgery Case discussed with Dr. Butch Peraza, PGY-1 <Vicente Rae S - Last Filed: 03/20/18 19:00> Meds - Medications Medications: Current Medications Bisoprolol Fumarate/HCTZ (Ziac 2.5-6.25 Mg) 1 tab PO DAILY [facility] Last Admin: 03/20/18 10:59 Dose: 1 tab Clindamycin HCl (Cleocin) 300 mg PO TID [facility]; Protocol Last Admin: 03/20/18 17:50 Dose: 300 mg Dexamethasone (Decadron Inj) 8 mg IV Q8H [facility] Last Admin: 03/20/18 12:40 Dose: 8 mg Fluconazole (Diflucan) 150 mg PO DAILY [facility] Last Admin: 03/20/18 10:58 Dose: 150 mg Gabapentin (Neurontin) 100 mg PO BID [facility] Last Admin: 03/20/18 17:49 Dose: 100 mg Hydroxychloroquine Sulfate (Plaquenil) 200 mg PO BID [facility]; Protocol Last Admin: 03/20/18 17:50 Dose: 200 mg Sodium Chloride (Sodium Chloride 0.9%) 1,000 mls @ 100 mls/hr IV .Q10H [facility] Last Admin: 03/20/18 18:33 Dose: Not Given Levothyroxine Sodium (Synthroid) 75 mcg PO DAILY@0630 [facility] Last Admin: 03/20/18 05:44 Dose: 75 mcg Metoclopramide HCl (Reglan) 10 mg IVP ACHS [facility] Last Admin: 03/20/18 17:50 Dose: Not Given Morphine Sulfate (Morphine) 2 mg IVP Q4 PRN PRN Reason: Pain, moderate (4-7) Last Admin: 03/19/18 06:16 Dose: 2 mg Pantoprazole Sodium (Protonix Inj) 40 mg IVP DAILY [facility] Last Admin: 03/20/18 10:57 Dose: 40 mg Results - Vital Signs Recent Vital Signs: Last Vital Signs Temp 98.6 F 03/20/18 17:30 Pulse 98 H 03/20/18 18:10 Resp 21 03/20/18 18:10 BP 154/92 H 03/20/18 18:03 Pulse Ox 96 03/20/18 18:10 - Labs Result Diagrams: 03/18/18 16:37 03/18/18 16:37 Labs: Laboratory Results - last 24 hr 03/20/18 03/20/18 03/20/18 07:11 07:11 10:52 ESR 53 H PT 12.5 H INR 1.1 C-Reactive Protein 12.00 H Attending/Attestation - Attestation I have personally seen and examined this patient.: Yes I have fully participated in the care of the patient.: Yes I have reviewed all pertinent clinical information: Yes Notes (Text): 03/20/18 18:59 patient seen and examined Transferred to ICU for monitoring Possible surgery tomorrow for cerebellar mass CAT scan of the chest noted Case discussed with family at length
--- NOTE | 2018-03-20 20:15 | CON ---
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 HISTORY OF PRESENT ILLNESS: This is a 58-year-old female with past medical history of hypertension, rheumatoid arthritis, hypothyroidism, and lupus, presenting with a complaint of headache for one month. The headache was very severe; used to get relief by pain medications like Tylenol and Motrin, but reappeared after a couple of hours. The patient was very recently also being seen by Dr. Cruz for abnormal findings on the breast. Mammogram showed some lesions on the right breast. Ultrasound showed the similar lesion and also lymphadenopathy in the right axilla. The patient was being scheduled for breast MRI and was being followed by Dr. Cruz. In the meantime, this headache started and she came in to the ER. MRI of the brain was done which showed multiple metastatic lesions including one at the cerebellum with severe edema as well as mass effect. Hence, Neurosurgery was consulted and have requested surgery for a.m. PAST MEDICAL HISTORY: Hypertension, hypothyroidism, and rheumatoid arthritis. PAST SURGICAL HISTORY: Right shoulder surgery. 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 REVIEW OF SYSTEMS: As per the HPI, complains of severe headache, swelling of the right breast. Other than that, denies any weight loss, denies any loss of appetite, feels well. ALLERGIES: CLARITHROMYCIN, PENICILLIN, AND SULFA. MEDICATIONS: In the hospital, now on Ziac, Cleocin, Diflucan, Neurontin, Plaquenil, fluconazole, Toradol, Synthroid, morphine, and Protonix. PHYSICAL EXAMINATION: VITAL SIGNS: Temperature is 98.2, blood pressure is 110/70, and pulse of 76. HEENT: PERRLA. No scleral icterus is seen. NECK: Supple. CHEST: Bilateral air entry is fair. BREASTS: Show edema and swelling of the right breast, increased in sizes compared to the left breast; also lymphadenopathy palpable in the right axilla with redness. Left breast is normal. ABDOMEN: Soft. EXTREMITIES: No edema. LABORATORY DATA: Labs show white count of 5.2, hemoglobin of 13.6, platelets of 589, BUN of 17, and creatinine of 0.6. ASSESSMENT AND PLAN: A 58-year-old female with metastatic disease. We will obtain a CAT scan of the chest, abdomen, and pelvis to determine what is the primary site, although, the breasts seem like the most likely site as mammogram and ultrasound did show abnormal findings, unsure if the patient has had a biopsy or was awaiting the MRI of the breast at this time to obtain the biopsy. Will obtain bone scan.The patient has been evaluated by Neurosurgery and is scheduled for surgery tomorrow morning in the setting of severe mass effect. I have started the patient on Decadron. I have convinced her to start taking the medication. Case was discussed with the patient and in extensive detail. We will discuss with Dr. Matthews. We will follow up once pathology is obtained. The patient will also need whole brain RT for multiple other metastatic lesions in the brain.Also, we will await biopsy to make further recommendations. Thank you for the consult. We will follow the patient. Chrissy Frost MD [facility]
[2018-03-20 21:38] LABS: SQUAMOUS EPITHIAL < 1 /hpf (0-5); URINE BACTERIA RARE (<OCC); URINE BILIRUBIN NEGATIVE (NEGATIVE); URINE BLOOD NEGATIVE (NEGATIVE); URINE CLARITY Clear (Clear); URINE COLOR Straw (YELLOW); URINE GLUCOSE (UA) 2+ mg/dL (Normal); URINE LEUKOCYTE ESTERASE NEG Leu/uL (Negative); URINE PROTEIN NEGATIVE (NEGATIVE); URINE UROBILINOGEN NORMAL mg/dL (0.2-1.0)
--- NOTE | 2018-03-21 01:40 | PN ---
DATE: 03/20/2018 SUBJECTIVE: The patient is seen today, 03/20/2018. MRI of the head showed metastatic brain lesions with a large mass on the cerebellar region that causing compression on the fourth ventricle. The patient was started on Decadron, and neurosurgery and oncology consult was called. PHYSICAL EXAMINATION: VITAL SIGNS: Blood pressure 126/58, temperature 98.2, respiratory rate 20, and pulse 98. HEENT: Pupils equal, reactive to light. Normal-appearing mucosa of the conjunctivae, oropharynx, and nasal membrane mucosa. Neck: Supple. No JVD. No carotid bruit. No lymph node. No thyromegaly. CHEST AND LUNGS: Bilateral symmetrical expansion. Good air exchange. No rales. No rhonchi. CARDIOVASCULAR SYSTEM: PMI not localized. S1, S2. No additional sounds. ABDOMEN: Normoactive bowel sounds. No tenderness. No organomegaly. No masses. EXTREMITIES: No cyanosis, no clubbing, no edema. CENTRAL NERVOUS SYSTEM: Alert, awake, oriented x3. No neurological deficit could be appreciated. BREAST: Showed that the patient has induration around the area of the right breast with thickening of the skin and peau d'orange appearance. 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 Discussed with Dr. Morin and Dr. Frost, and the decision was to have craniotomy with decompression surgery done the following day. Daughter, Tammy, discussed in detail with Dr. Morin over the phone in my presence, and all her questions were answered. The patient and family are agreeing for surgery. Discussed with Dr. Frost who was also agreeing for surgery. We will follow CAT scan of the chest and abdomen. Derrick Matthews MD
[2018-03-21] MEDS: Dexamethasone 4 mg/1 ml IV SCH ×3 (04:02→20:36)
[2018-03-21] MEDS: Sodium Chloride 0.9% 1,000 ML IV SCH ×2 (04:03→15:32)
[2018-03-21 05:01] LABS: BASO % 0.3 % (0.0-2.0); EOS % 0.1 % (0.0-4.0); HEMOGLOBIN 13.6 g/dL (11.0-16.0); LYMPH % 23.3 % (20.0-40.0); MEAN CELL VOLUME 87.2 fL (81.0-99.0); MEAN CORPUSCULAR HEMOGLOBIN 29.7 pg (27.0-31.0); MEAN CORPUSCULAR HGB CONC 34.1 g/dL (33.0-37.0); MEAN PLATELET VOLUME 8.2 fL (7.2-11.7); MONO # 0.1 K/uL (0.0-0.8); MONO % 1.5 % (0.0-10.0); NEUT # 3.2 K/uL (1.8-7.0); NEUT % 74.8 % (50.0-75.0); NRBC % 0.1 % (0.0-2.0); RBC 4.57 Mil/uL (3.80-5.20); RED CELL DISTRIBUTION WIDTH 12.6 % (11.5-14.5); WHITE BLOOD COUNT 4.2 K/uL (4.8-10.8)
[2018-03-21 05:02] LABS: INR 1.2; PROTHROMBIN TIME 12.9 SECONDS (9.7-12.2)
[2018-03-21 05:51] LABS: ALB/GLOB RATIO 1.1 (1.0-2.1); ALBUMIN 4.2 g/dL (3.5-5.0); ALT/SGPT 33 U/L (9-52); AST/SGOT 57 U/L (14-36); BLOOD UREA NITROGEN 8 mg/dL (7-17); CALCIUM 8.8 mg/dl (8.6-10.4); GFR NON-AFRICAN AMERICAN > 60
[2018-03-21] MEDS: Levothyroxine 75 MCG TAB PO SCH (05:54)
--- NOTE | 2018-03-21 08:03 | CON ---
DATE: 03/20/2018 HISTORY OF PRESENT ILLNESS: This is a rather unfortunate 58-year-old lady who actually presented with a week of progressive headache. She has had nausea. She vomited three times yesterday. She also recently noticed a breast mass and had a biopsy performed quite recently. Furthermore, apparently she had some shoulder surgery in the past year with a questionable infection. She is also complaining of pain involving the right leg and difficulty walking. PAST MEDICAL HISTORY: Her past medical history is essentially as above. She is also hypothyroid. ALLERGIES: HAS MULTIPLE ALLERGIES INCLUDING TO PENICILLIN. ALL THESE ARE DOCUMENTED FULLY IN THE EMR. PHYSICAL EXAMINATION: GENERAL: She is bright, awake and alert. NEUROLOGIC: Mental status and speech in [place], which I certainly presume, is her second language appropriate. Pupils equal and reactive. EOMs are full. Face is symmetric. Tongue is midline. Rapid alternating movements may be a little bit off on the right as is her [id number]. She has a mild left pronator drift. She does have 5/5 strength throughout. Her gait is wide based. She is favoring the right leg although this certainly may be pain related. IMAGING: MRI of the brain unfortunately documents multiple enhancing lesions in the supratentorial area, the most concerning is actually in the right cerebellum where there is a very large 3 x 4 x 3 enhancing mass causing beginning of brainstem impingement and compression of the fourth ventricle. At this time, there is no hydrocephalus. She also had an MRI of the lumbar spine that was basically negative. IMPRESSION AND PLAN: Obviously, the cerebellar lesion with marked mass effect in the posterior fossa is most concerning. Here, I would certainly advocate relatively urgent suboccipital craniectomy and excisional biopsy of this mass. I explained this to the patient who seems to understand she would like to discuss this with her , but we have taken the step of scheduling her for surgery tomorrow. In the interim, I would be in agreement with head of bed elevation and Decadron. Paul Morin MD
--- NOTE | 2018-03-21 09:09 | CP.CCUPN ---
<Gómez Peraza - Last Filed: 03/21/18 16:35> CCU Subjective - Physician Review Subjective (Free Text): 03/21/18 09:25 Patient seen and examined at bedside. No acute overnight events. Patient is plan for Craniotomy with decompression surgery today at 11:30AM. Critical Care Time Spent (in minutes): 35 CCU Objective - Vital Signs / Intake & Output Vital Signs (Last 4 hours): Vital Signs Temp Pulse Resp BP Pulse Ox 03/21/18 09:04 106 H 20 151/80 H 96 03/21/18 09:00 107 H 20 95 03/21/18 08:30 123 H 20 97 03/21/18 08:03 112 H 15 141/72 97 03/21/18 08:00 98 F 03/21/18 07:30 106 H 22 97 03/21/18 07:03 109 H 19 135/63 96 03/21/18 07:00 110 H 21 97 03/21/18 06:30 102 H 16 96 03/21/18 06:03 103 H 23 132/73 97 Intake and Output (Last 8hrs): Intake & Output 03/20/18 03/21/18 03/21/18 22:59 06:59 14:59 Intake Total 1170 830 300 Output Total 800 1050 500 Balance 370 -220 -200 Weight 165 lb 9.6 oz Intake: Intake, IV Amount 500 800 300 Left Antecubital 100 Left Hand 400 800 300 Oral 670 30 0 Output: Urine 800 1050 500 Urine, Voided 800 1050 500 Other: # Voids Urine, Voided 1 0 0 # Bowel Movements 0 0 0 - Physical Exam Head: Positive for: Atraumatic, Normocephalic Pupils: Positive for: PERRL Conjunctiva: Positive for: Normal Mouth: Positive for: Moist Mucous Membranes Respiratory/Chest: Positive for: Clear to Auscultation, Good Air Exchange. Negative for: Respiratory Distress, Accessory Muscle Use, Wheezes, Rales, Rhonchi Cardiovascular: Positive for: Regular Rate and Rhythm, Normal S1, S2. Negative for: Murmurs Abdomen: Positive for: Normal Bowel Sounds. Negative for: Tenderness, Distention, Peritoneal Signs Upper Extremity: Positive for: Normal Inspection. Negative for: Cyanosis, Edema Lower Extremity: Positive for: Normal Inspection, NORMAL PULSES. Negative for: Edema, CALF TENDERNESS Neurological: Positive for: GCS=15, CN II-XII Intact, Speech Normal Skin: Positive for: Warm, Dry, Normal Color. Negative for: Rashes Psychiatric: Positive for: Alert, Oriented x 3, Normal Insight, Normal Concentration - Medications Active Medications: Active Medications Generic Name Dose Route Start Last Admin Trade Name Freq PRN Reason Stop Dose Admin Bisoprolol Fumarate/HCTZ 1 tab 03/19/18 10:00 03/20/18 10:59 Ziac 2.5-6.25 Mg PO 1 tab DAILY RAZIA Administration Clindamycin HCl 300 mg 03/19/18 10:00 03/20/18 17:50 Cleocin PO 300 mg TID RAZIA Administration Protocol Dexamethasone 8 mg 03/20/18 12:15 03/21/18 04:02 Decadron Inj IV 8 mg Q8H RAZIA Administration Fluconazole 150 mg 03/19/18 10:00 03/20/18 10:58 Diflucan PO 150 mg DAILY RAZIA Administration Gabapentin 100 mg 03/19/18 10:00 03/20/18 17:49 Neurontin PO 100 mg BID RAZIA Administration Hydroxychloroquine Sulfate 200 mg 03/19/18 10:00 03/20/18 17:50 Plaquenil PO 200 mg BID RAZIA Administration Protocol Sodium Chloride 1,000 mls @ 100 mls/hr 03/18/18 16:15 03/21/18 04:03 Sodium Chloride 0.9% IV 100 mls/hr .Q10H RAZIA Administration Levothyroxine Sodium 75 mcg 03/19/18 06:30 03/21/18 05:54 Synthroid PO 75 mcg DAILY@0630 RAZIA Administration Metoclopramide HCl 10 mg 03/19/18 11:30 03/21/18 08:07 Reglan IVP Not Given ACHS RAZIA Morphine Sulfate 2 mg 03/18/18 21:43 03/19/18 06:16 Morphine IVP 2 mg Q4 PRN Administration Pain, moderate (4-7) Pantoprazole Sodium 40 mg 03/19/18 11:30 03/20/18 10:57 Protonix Inj IVP 40 mg DAILY RAZIA Administration - Patient Studies Lab Studies: Lab Studies 03/21/18 03/21/18 03/21/18 Range/Units 07:03 04:51 04:51 WBC (4.8-10.8) K/uL RBC (3.80-5.20) Mil/uL Hgb (11.0-16.0) g/dL Hct (34.0-47.0) % MCV (81.0-99.0) fL MCH (27.0-31.0) pg MCHC (33.0-37.0) g/dL RDW (11.5-14.5) % Plt Count (130-400) K/uL MPV (7.2-11.7) fL Neut % (Auto) (50.0-75.0) % Lymph % (Auto) (20.0-40.0) % Stone % (Auto) (0.0-10.0) % Eos % (Auto) (0.0-4.0) % Baso % (Auto) (0.0-2.0) % Neut # (Auto) (1.8-7.0) K/uL Lymph # (Auto) (1.0-4.3) K/uL Stone # (Auto) (0.0-0.8) K/uL Eos # (Auto) (0.0-0.7) K/uL Baso # (Auto) (0.0-0.2) K/uL PT 12.9 H (9.7-12.2) SECONDS INR 1.2 APTT 32 (21-34) SECONDS Sodium 140 (132-148) mmol/L Potassium 5.0 (3.6-5.2) mmol/L Chloride 107 (98-107) mmol/L Carbon Dioxide 22 (22-30) mmol/L Anion Gap 16 (10-20) BUN 8 (7-17) mg/dL Creatinine 0.5 L (0.7-1.2) mg/dL Est GFR ( Amer) > 60 Est GFR (Non-Af Amer) > 60 Random Glucose 174 H (65-105) mg/dL Calcium 8.8 (8.6-10.4) mg/dl Phosphorus 4.3 (2.5-4.5) mg/dL Magnesium 1.9 (1.6-2.3) mg/dL Total Bilirubin 1.5 H (0.2-1.3) mg/dL AST 57 H (14-36) U/L ALT 33 (9-52) U/L Alkaline Phosphatase 106 (38-126) U/L Total Protein 8.0 (6.3-8.3) g/dL Albumin 4.2 (3.5-5.0) g/dL Globulin 3.8 (2.2-3.9) gm/dL Albumin/Globulin Ratio 1.1 (1.0-2.1) Urine Color (YELLOW) Urine Clarity (Clear) Urine pH (5.0-8.0) Ur Specific Braymer (1.003-1.030) Urine Protein (NEGATIVE) mg/dL Urine Glucose (UA) (Normal) mg/dL Urine Ketones (NEGATIVE) mg/dL Urine Blood (NEGATIVE) Urine Nitrate (NEGATIVE) Urine Bilirubin (NEGATIVE) Urine Urobilinogen (0.2-1.0) mg/dL Ur Leukocyte Esterase (Negative) Odalys/uL Urine WBC (Auto) (0-5) /hpf Ur Squamous Epith Cells (0-5) /hpf Urine Bacteria (<OCC) Urine HCG, Qual (NEGATIVE) Blood Type A POSITIVE Antibody Screen Negative 03/21/18 03/20/18 03/20/18 Range/Units 04:51 21:30 21:06 WBC 4.2 L (4.8-10.8) K/uL RBC 4.57 (3.80-5.20) Mil/uL Hgb 13.6 (11.0-16.0) g/dL Hct 39.8 (34.0-47.0) % MCV 87.2 (81.0-99.0) fL MCH 29.7 (27.0-31.0) pg MCHC 34.1 (33.0-37.0) g/dL RDW 12.6 (11.5-14.5) % Plt Count 290 (130-400) K/uL MPV 8.2 (7.2-11.7) fL Neut % (Auto) 74.8 (50.0-75.0) % Lymph % (Auto) 23.3 (20.0-40.0) % Stone % (Auto) 1.5 (0.0-10.0) % Eos % (Auto) 0.1 (0.0-4.0) % Baso % (Auto) 0.3 (0.0-2.0) % Neut # (Auto) 3.2 (1.8-7.0) K/uL Lymph # (Auto) 1.0 (1.0-4.3) K/uL Stone # (Auto) 0.1 (0.0-0.8) K/uL Eos # (Auto) 0.0 (0.0-0.7) K/uL Baso # (Auto) 0.0 (0.0-0.2) K/uL PT (9.7-12.2) SECONDS INR APTT (21-34) SECONDS Sodium (132-148) mmol/L Potassium (3.6-5.2) mmol/L Chloride (98-107) mmol/L Carbon Dioxide (22-30) mmol/L Anion Gap (10-20) BUN (7-17) mg/dL Creatinine (0.7-1.2) mg/dL Est GFR ( Amer) Est GFR (Non-Af Amer) Random Glucose (65-105) mg/dL Calcium (8.6-10.4) mg/dl Phosphorus (2.5-4.5) mg/dL Magnesium (1.6-2.3) mg/dL Total Bilirubin (0.2-1.3) mg/dL AST (14-36) U/L ALT (9-52) U/L Alkaline Phosphatase (38-126) U/L Total Protein (6.3-8.3) g/dL Albumin (3.5-5.0) g/dL Globulin (2.2-3.9) gm/dL Albumin/Globulin Ratio (1.0-2.1) Urine Color Straw (YELLOW) Urine Clarity Clear (Clear) Urine pH 7.0 (5.0-8.0) Ur Specific Braymer 1.016 (1.003-1.030) Urine Protein Negative (NEGATIVE) mg/dL Urine Glucose (UA) 2+ H (Normal) mg/dL Urine Ketones Negative (NEGATIVE) mg/dL Urine Blood Negative (NEGATIVE) Urine Nitrate Negative (NEGATIVE) Urine Bilirubin Negative (NEGATIVE) Urine Urobilinogen Normal (0.2-1.0) mg/dL Ur Leukocyte Esterase Neg (Negative) Odalys/uL Urine WBC (Auto) < 1 (0-5) /hpf Ur Squamous Epith Cells < 1 (0-5) /hpf Urine Bacteria Rare (<OCC) Urine HCG, Qual Negative (NEGATIVE) Blood Type Antibody Screen 03/20/18 Range/Units 10:52 WBC (4.8-10.8) K/uL RBC (3.80-5.20) Mil/uL Hgb (11.0-16.0) g/dL Hct (34.0-47.0) % MCV (81.0-99.0) fL MCH (27.0-31.0) pg MCHC (33.0-37.0) g/dL RDW (11.5-14.5) % Plt Count (130-400) K/uL MPV (7.2-11.7) fL Neut % (Auto) (50.0-75.0) % Lymph % (Auto) (20.0-40.0) % Stone % (Auto) (0.0-10.0) % Eos % (Auto) (0.0-4.0) % Baso % (Auto) (0.0-2.0) % Neut # (Auto) (1.8-7.0) K/uL Lymph # (Auto) (1.0-4.3) K/uL Stone # (Auto) (0.0-0.8) K/uL Eos # (Auto) (0.0-0.7) K/uL Baso # (Auto) (0.0-0.2) K/uL PT 12.5 H (9.7-12.2) SECONDS INR 1.1 APTT (21-34) SECONDS Sodium (132-148) mmol/L Potassium (3.6-5.2) mmol/L Chloride (98-107) mmol/L Carbon Dioxide (22-30) mmol/L Anion Gap (10-20) BUN (7-17) mg/dL Creatinine (0.7-1.2) mg/dL Est GFR ( Amer) Est GFR (Non-Af Amer) Random Glucose (65-105) mg/dL Calcium (8.6-10.4) mg/dl Phosphorus (2.5-4.5) mg/dL Magnesium (1.6-2.3) mg/dL Total Bilirubin (0.2-1.3) mg/dL AST (14-36) U/L ALT (9-52) U/L Alkaline Phosphatase (38-126) U/L Total Protein (6.3-8.3) g/dL Albumin (3.5-5.0) g/dL Globulin (2.2-3.9) gm/dL Albumin/Globulin Ratio (1.0-2.1) Urine Color (YELLOW) Urine Clarity (Clear) Urine pH (5.0-8.0) Ur Specific Braymer (1.003-1.030) Urine Protein (NEGATIVE) mg/dL Urine Glucose (UA) (Normal) mg/dL Urine Ketones (NEGATIVE) mg/dL Urine Blood (NEGATIVE) Urine Nitrate (NEGATIVE) Urine Bilirubin (NEGATIVE) Urine Urobilinogen (0.2-1.0) mg/dL Ur Leukocyte Esterase (Negative) Odalys/uL Urine WBC (Auto) (0-5) /hpf Ur Squamous Epith Cells (0-5) /hpf Urine Bacteria (<OCC) Urine HCG, Qual (NEGATIVE) Blood Type Antibody Screen Laboratory Results - last 24 hr 03/20/18 03/20/18 03/20/18 10:52 21:06 21:30 WBC RBC Hgb Hct MCV MCH MCHC RDW Plt Count MPV Neut % (Auto) Lymph % (Auto) Stone % (Auto) Eos % (Auto) Baso % (Auto) Neut # (Auto) Lymph # (Auto) Stone # (Auto) Eos # (Auto) Baso # (Auto) PT 12.5 H INR 1.1 APTT Sodium Potassium Chloride Carbon Dioxide Anion Gap BUN Creatinine Est GFR ( Amer) Est GFR (Non-Af Amer) Random Glucose Calcium Phosphorus Magnesium Total Bilirubin AST ALT Alkaline Phosphatase Total Protein Albumin Globulin Albumin/Globulin Ratio Urine Color Straw Urine Clarity Clear Urine pH 7.0 Ur Specific Braymer 1.016 Urine Protein Negative Urine Glucose (UA) 2+ H Urine Ketones Negative Urine Blood Negative Urine Nitrate Negative Urine Bilirubin Negative Urine Urobilinogen Normal Ur Leukocyte Esterase Neg Urine WBC (Auto) < 1 Ur Squamous Epith Cells < 1 Urine Bacteria Rare Urine HCG, Qual Negative Blood Type Antibody Screen 03/21/18 03/21/18 03/21/18 04:51 04:51 04:51 WBC 4.2 L RBC 4.57 Hgb 13.6 Hct 39.8 MCV 87.2 MCH 29.7 MCHC 34.1 RDW 12.6 Plt Count 290 MPV 8.2 Neut % (Auto) 74.8 Lymph % (Auto) 23.3 Stone % (Auto) 1.5 Eos % (Auto) 0.1 Baso % (Auto) 0.3 Neut # (Auto) 3.2 Lymph # (Auto) 1.0 Stone # (Auto) 0.1 Eos # (Auto) 0.0 Baso # (Auto) 0.0 PT 12.9 H INR 1.2 APTT 32 Sodium 140 Potassium 5.0 Chloride 107 Carbon Dioxide 22 Anion Gap 16 BUN 8 Creatinine 0.5 L Est GFR ( Amer) > 60 Est GFR (Non-Af Amer) > 60 Random Glucose 174 H Calcium 8.8 Phosphorus 4.3 Magnesium 1.9 Total Bilirubin 1.5 H AST 57 H ALT 33 Alkaline Phosphatase 106 Total Protein 8.0 Albumin 4.2 Globulin 3.8 Albumin/Globulin Ratio 1.1 Urine Color Urine Clarity Urine pH Ur Specific Braymer Urine Protein Urine Glucose (UA) Urine Ketones Urine Blood Urine Nitrate Urine Bilirubin Urine Urobilinogen Ur Leukocyte Esterase Urine WBC (Auto) Ur Squamous Epith Cells Urine Bacteria Urine HCG, Qual Blood Type Antibody Screen 03/21/18 07:03 WBC RBC Hgb Hct MCV MCH MCHC RDW Plt Count MPV Neut % (Auto) Lymph % (Auto) Stone % (Auto) Eos % (Auto) Baso % (Auto) Neut # (Auto) Lymph # (Auto) Stone # (Auto) Eos # (Auto) Baso # (Auto) PT INR APTT Sodium Potassium Chloride Carbon Dioxide Anion Gap BUN Creatinine Est GFR ( Amer) Est GFR (Non-Af Amer) Random Glucose Calcium Phosphorus Magnesium Total Bilirubin AST ALT Alkaline Phosphatase Total Protein Albumin Globulin Albumin/Globulin Ratio Urine Color Urine Clarity Urine pH Ur Specific Braymer Urine Protein Urine Glucose (UA) Urine Ketones Urine Blood Urine Nitrate Urine Bilirubin Urine Urobilinogen Ur Leukocyte Esterase Urine WBC (Auto) Ur Squamous Epith Cells Urine Bacteria Urine HCG, Qual Blood Type A POSITIVE Antibody Screen Negative EKG/Cardiology Studies: Cardiology / EKG Studies 03/20/18 14:58 EKG [ELECTROCARDIOGRAM] Routine Comment: Mode Of Transportation: Reason For Exam: surgery Critical Care Progress Note - Nutrition Nutrition: Nutrition Category Date Time Status NPO Diet [DIET] Diets 03/21/18 Breakfast Active Assessment/Plan - Assessment and Plan (Free Text) Assessment: Patient is a 58 year old female with a past medical history of HTN, RA, and hypothyroidism presenting with a headache for 1 month and right sided leg pain for 3 months. 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 Fourth ventricle is partially effaced. No hydrocephalus at this time. - Lumbar spine CT (03/19): No disc herniation or significant central canal or neural foraminal stenosis appreciated throughout the lumbar spine. No fracture or spondylolisthesis. Abnormal matter signal change identified at the sacrum which may be benign but somewhat suspicious particularly at the bilateral sacral alae and follow-up nuclear bone scan is advised to exclude potential metastasis, particularly given brain metastasis seen in brain MRI performed today 03/19/2018. - Neurosurgery consulted, Dr. Bennett - Neurology consulted, Dr. John - Craniotomy with excision of metastasis - Neurochecks Q4H - NPO except for meds - Will order CT head if patient is clinically symptomatic, as per neurosurgery - Dexamethasone 8mg IV Q8 - Gabapentin 100mg PO BID - Morphine 2mg IV Q4 PRN Pulm: - No acute issues Cardiovascular: - Continue home medication Bisoprolol/HTZ 2.5/6.25mg PO QD Endo: - Continue home medication Levothyroxine 75mg PO QD GI: - Reglan 10mg IV ACHS - CT abd/pelvis/chest (03/20): Indeterminate 15 mm posterior right hepatic lobe hypodense mass. Metastatic disease must be excluded. If indicated, dedicated cross-sectional imaging may be considered. Abnormal appearance of bilateral adrenal glands likely mixture of nodules and hypertrophy. Dedicated adrenal gland CT or MRI may be considered for further characterization. Metastatic disease must be excluded. Small indeterminate lucencies involving the proximal femur, lesser trochanter unclear significance. In the setting of breast cancer, if clinical concern for osseous metastases, recommend further evaluation with nuclear medicine bone s can. - See full report Renal: - NS @ 100 mls/hr Heme/onc: - Heme-onc consulted, Dr. Frost - Surgery consulted, Dr. Cruz - CT abd/pelvis/chest (03/20): Marked irregular skin thickening of the right breast with asymmetric breast soft tissue. 6 mm nodule within the medial left breast. Correlate for history of breast cancer. Recommend correlation with dedicated breast imaging. Right axillary adenopathy measuring up to 2.2 cm in short axis on the right; appearance most consistent with metastatic disease. - See full report ID: - No acute issues Rheum: - Continue home medication for RA, Hydroxychloroquine 200mg PO BID Skin: - Rule out mastitis vs inflammatory breast carcinoma - Clindamycin 300mg PO TID (Started on 03/19) Prophylaxis: - Protonix 40mg IV QD - SCD's - Chemical anticoagulants held for surgery Case discussed with Dr. Butch Peraza, PGY-1 <Vicente Rae - Last Filed: 03/21/18 18:06> CCU Objective - Vital Signs / Intake & Output Vital Signs (Last 4 hours): Vital Signs Temp Pulse Resp BP Pulse Ox 03/21/18 17:30 66 16 99 03/21/18 17:10 67 11 L 126/70 100 03/21/18 17:00 71 14 138/78 100 03/21/18 16:46 63 12 138/78 100 03/21/18 16:31 71 14 142/80 100 03/21/18 16:30 69 13 100 03/21/18 16:16 74 19 136/76 100 03/21/18 16:01 74 15 135/73 99 03/21/18 16:00 97.7 F 03/21/18 15:46 80 14 145/77 100 03/21/18 15:31 81 17 136/68 100 03/21/18 15:30 80 23 100 03/21/18 15:16 85 17 125/59 L 100 03/21/18 15:15 85 Intake and Output (Last 8hrs): Intake & Output 03/21/18 03/21/18 03/21/18 06:59 14:59 22:59 Intake Total 830 1830 220 Output Total 1050 1000 260 Balance -220 830 -40 Weight 164 lb 6.4 oz Intake: IV 1200 Intake, IV Amount 800 600 220 Left Hand 800 600 100 Right Hand 120 Oral 30 30 0 Output: Urine 1050 1000 260 Urethral (Ny) 260 Urine, Voided 1050 850 Other: # Voids Urine, Voided 0 0 # Bowel Movements 0 1 - Medications Active Medications: Active Medications Generic Name Dose Route Start Last Admin Trade Name Freq PRN Reason Stop Dose Admin Bisoprolol Fumarate/HCTZ 1 tab 03/19/18 10:00 03/21/18 09:14 Ziac 2.5-6.25 Mg PO 1 tab DAILY RAZIA Administration Dexamethasone 8 mg 03/20/18 12:15 03/21/18 12:30 Decadron Inj IV Not Given Q8H RAZIA Fluconazole 150 mg 03/19/18 10:00 03/21/18 09:25 Diflucan PO Not Given DAILY RAZIA Gabapentin 100 mg 03/19/18 10:00 03/21/18 17:29 Neurontin PO Not Given BID RAZIA Hydroxychloroquine Sulfate 200 mg 03/19/18 10:00 03/21/18 17:29 Plaquenil PO Not Given BID RAZIA Protocol Clindamycin Phosphate 300 mg/ 52 mls @ 100 mls/hr 03/21/18 11:00 03/21/18 10:18 Sodium Chloride IVPB 100 mls/hr Q8H RAZIA Administration Protocol Levetiracetam 500 mg/ Dextrose 105 mls @ 420 mls/hr 03/21/18 16:00 03/21/18 16:17 IVPB 420 mls/hr Q12H RAZIA Administration Sodium Chloride 1,000 mls @ 60 mls/hr 03/21/18 15:12 03/21/18 15:32 Sodium Chloride 0.9% IV 60 mls/hr .[id number] RAZIA Administration Levothyroxine Sodium 75 mcg 03/19/18 06:30 03/21/18 05:54 Synthroid PO 75 mcg DAILY@0630 RAZIA Administration Metoclopramide HCl 10 mg 03/19/18 11:30 03/21/18 17:00 Reglan IVP Not Given ACHS RAZIA Morphine Sulfate 2 mg 03/18/18 21:43 03/21/18 15:21 Morphine IVP 2 mg Q4 PRN Administration Pain, moderate (4-7) Pantoprazole Sodium 40 mg 03/19/18 11:30 03/21/18 09:16 Protonix Inj IVP 40 mg DAILY RAZIA Administration - Patient Studies Lab Studies: Lab Studies 03/21/18 03/21/18 03/21/18 Range/Units 07:03 04:51 04:51 WBC (4.8-10.8) K/uL RBC (3.80-5.20) Mil/uL Hgb (11.0-16.0) g/dL Hct (34.0-47.0) % MCV (81.0-99.0) fL MCH (27.0-31.0) pg MCHC (33.0-37.0) g/dL RDW (11.5-14.5) % Plt Count (130-400) K/uL MPV (7.2-11.7) fL Neut % (Auto) (50.0-75.0) % Lymph % (Auto) (20.0-40.0) % Stone % (Auto) (0.0-10.0) % Eos % (Auto) (0.0-4.0) % Baso % (Auto) (0.0-2.0) % Neut # (Auto) (1.8-7.0) K/uL Lymph # (Auto) (1.0-4.3) K/uL Stone # (Auto) (0.0-0.8) K/uL Eos # (Auto) (0.0-0.7) K/uL Baso # (Auto) (0.0-0.2) K/uL PT 12.9 H (9.7-12.2) SECONDS INR 1.2 APTT 32 (21-34) SECONDS Sodium 140 (132-148) mmol/L Potassium 5.0 (3.6-5.2) mmol/L Chloride 107 (98-107) mmol/L Carbon Dioxide 22 (22-30) mmol/L Anion Gap 16 (10-20) BUN 8 (7-17) mg/dL Creatinine 0.5 L (0.7-1.2) mg/dL Est GFR ( Amer) > 60 Est GFR (Non-Af Amer) > 60 Random Glucose 174 H (65-105) mg/dL Calcium 8.8 (8.6-10.4) mg/dl Phosphorus 4.3 (2.5-4.5) mg/dL Magnesium 1.9 (1.6-2.3) mg/dL Total Bilirubin 1.5 H (0.2-1.3) mg/dL AST 57 H (14-36) U/L ALT 33 (9-52) U/L Alkaline Phosphatase 106 (38-126) U/L Total Protein 8.0 (6.3-8.3) g/dL Albumin 4.2 (3.5-5.0) g/dL Globulin 3.8 (2.2-3.9) gm/dL Albumin/Globulin Ratio 1.1 (1.0-2.1) Urine Color (YELLOW) Urine Clarity (Clear) Urine pH (5.0-8.0) Ur Specific Braymer (1.003-1.030) Urine Protein (NEGATIVE) mg/dL Urine Glucose (UA) (Normal) mg/dL Urine Ketones (NEGATIVE) mg/dL Urine Blood (NEGATIVE) Urine Nitrate (NEGATIVE) Urine Bilirubin (NEGATIVE) Urine Urobilinogen (0.2-1.0) mg/dL Ur Leukocyte Esterase (Negative) Odalys/uL Urine WBC (Auto) (0-5) /hpf Ur Squamous Epith Cells (0-5) /hpf Urine Bacteria (<OCC) Urine HCG, Qual (NEGATIVE) Blood Type A POSITIVE Antibody Screen Negative 03/21/18 03/20/18 03/20/18 Range/Units 04:51 21:30 21:06 WBC 4.2 L (4.8-10.8) K/uL RBC 4.57 (3.80-5.20) Mil/uL Hgb 13.6 (11.0-16.0) g/dL Hct 39.8 (34.0-47.0) % MCV 87.2 (81.0-99.0) fL MCH 29.7 (27.0-31.0) pg MCHC 34.1 (33.0-37.0) g/dL RDW 12.6 (11.5-14.5) % Plt Count 290 (130-400) K/uL MPV 8.2 (7.2-11.7) fL Neut % (Auto) 74.8 (50.0-75.0) % Lymph % (Auto) 23.3 (20.0-40.0) % Stone % (Auto) 1.5 (0.0-10.0) % Eos % (Auto) 0.1 (0.0-4.0) % Baso % (Auto) 0.3 (0.0-2.0) % Neut # (Auto) 3.2 (1.8-7.0) K/uL Lymph # (Auto) 1.0 (1.0-4.3) K/uL Stone # (Auto) 0.1 (0.0-0.8) K/uL Eos # (Auto) 0.0 (0.0-0.7) K/uL Baso # (Auto) 0.0 (0.0-0.2) K/uL PT (9.7-12.2) SECONDS INR APTT (21-34) SECONDS Sodium (132-148) mmol/L Potassium (3.6-5.2) mmol/L Chloride (98-107) mmol/L Carbon Dioxide (22-30) mmol/L Anion Gap (10-20) BUN (7-17) mg/dL Creatinine (0.7-1.2) mg/dL Est GFR ( Amer) Est GFR (Non-Af Amer) Random Glucose (65-105) mg/dL Calcium (8.6-10.4) mg/dl Phosphorus (2.5-4.5) mg/dL Magnesium (1.6-2.3) mg/dL Total Bilirubin (0.2-1.3) mg/dL AST (14-36) U/L ALT (9-52) U/L Alkaline Phosphatase (38-126) U/L Total Protein (6.3-8.3) g/dL Albumin (3.5-5.0) g/dL Globulin (2.2-3.9) gm/dL Albumin/Globulin Ratio (1.0-2.1) Urine Color Straw (YELLOW) Urine Clarity Clear (Clear) Urine pH 7.0 (5.0-8.0) Ur Specific Braymer 1.016 (1.003-1.030) Urine Protein Negative (NEGATIVE) mg/dL Urine Glucose (UA) 2+ H (Normal) mg/dL Urine Ketones Negative (NEGATIVE) mg/dL Urine Blood Negative (NEGATIVE) Urine Nitrate Negative (NEGATIVE) Urine Bilirubin Negative (NEGATIVE) Urine Urobilinogen Normal (0.2-1.0) mg/dL Ur Leukocyte Esterase Neg (Negative) Odalys/uL Urine WBC (Auto) < 1 (0-5) /hpf Ur Squamous Epith Cells < 1 (0-5) /hpf Urine Bacteria Rare (<OCC) Urine HCG, Qual Negative (NEGATIVE) Blood Type Antibody Screen Laboratory Results - last 24 hr 03/20/18 03/20/18 03/21/18 21:06 21:30 04:51 WBC 4.2 L RBC 4.57 Hgb 13.6 Hct 39.8 MCV 87.2 MCH 29.7 MCHC 34.1 RDW 12.6 Plt Count 290 MPV 8.2 Neut % (Auto) 74.8 Lymph % (Auto) 23.3 Stone % (Auto) 1.5 Eos % (Auto) 0.1 Baso % (Auto) 0.3 Neut # (Auto) 3.2 Lymph # (Auto) 1.0 Stone # (Auto) 0.1 Eos # (Auto) 0.0 Baso # (Auto) 0.0 PT INR APTT Sodium Potassium Chloride Carbon Dioxide Anion Gap BUN Creatinine Est GFR ( Amer) Est GFR (Non-Af Amer) Random Glucose Calcium Phosphorus Magnesium Total Bilirubin AST ALT Alkaline Phosphatase Total Protein Albumin Globulin Albumin/Globulin Ratio Urine Color Straw Urine Clarity Clear Urine pH 7.0 Ur Specific Braymer 1.016 Urine Protein Negative Urine Glucose (UA) 2+ H Urine Ketones Negative Urine Blood Negative Urine Nitrate Negative Urine Bilirubin Negative Urine Urobilinogen Normal Ur Leukocyte Esterase Neg Urine WBC (Auto) < 1 Ur Squamous Epith Cells < 1 Urine Bacteria Rare Urine HCG, Qual Negative Blood Type Antibody Screen 03/21/18 03/21/18 03/21/18 04:51 04:51 07:03 WBC RBC Hgb Hct MCV MCH MCHC RDW Plt Count MPV Neut % (Auto) Lymph % (Auto) Stone % (Auto) Eos % (Auto) Baso % (Auto) Neut # (Auto) Lymph # (Auto) Stone # (Auto) Eos # (Auto) Baso # (Auto) PT 12.9 H INR 1.2 APTT 32 Sodium 140 Potassium 5.0 Chloride 107 Carbon Dioxide 22 Anion Gap 16 BUN 8 Creatinine 0.5 L Est GFR ( Amer) > 60 Est GFR (Non-Af Amer) > 60 Random Glucose 174 H Calcium 8.8 Phosphorus 4.3 Magnesium 1.9 Total Bilirubin 1.5 H AST 57 H ALT 33 Alkaline Phosphatase 106 Total Protein 8.0 Albumin 4.2 Globulin 3.8 Albumin/Globulin Ratio 1.1 Urine Color Urine Clarity Urine pH Ur Specific Braymer Urine Protein Urine Glucose (UA) Urine Ketones Urine Blood Urine Nitrate Urine Bilirubin Urine Urobilinogen Ur Leukocyte Esterase Urine WBC (Auto) Ur Squamous Epith Cells Urine Bacteria Urine HCG, Qual Blood Type A POSITIVE Antibody Screen Negative Critical Care Progress Note - Nutrition Nutrition: Nutrition Category Date Time Status NPO Diet [DIET] Diets 03/21/18 Breakfast Active Attending/Attestation - Attestation I have personally seen and examined this patient.: Yes I have fully participated in the care of the patient.: Yes I have reviewed all pertinent clinical information: Yes Notes (Text): 03/21/18 18:05 patient seen and examined Status post craniotomy and excision of mets Continue pain medication Continue to monitor in ICU Continue Keppra and Decadron
[2018-03-21] MEDS: Bisoprolol-HCTZ 2.5-6.25 mg Tab PO SCH (09:14)
[2018-03-21] MEDS: Clindamycin 300 MG in Sodium Chloride 0.9% 50 ML IVPB SCH ×2 (10:18→18:11)
--- NOTE | 2018-03-21 11:25 | CP.PCM.PN ---
Subjective - Date & Time of Evaluation Date of Evaluation: 03/21/18 Time of Evaluation: 11:24 - Subjective Subjective: PGY2 Neurology Note for Dr. Velasco Patient seen and examined this morning at bedside. No acute events. Patient is scheduled for decompression surgery this morning. Patient is feeling well without complaints. Objective - Vital Signs/Intake and Output Vital Signs (last 24 hours): Temp Pulse Resp BP Pulse Ox 98 F 90 18 147/84 97 03/21/18 08:00 03/21/18 11:00 03/21/18 11:00 03/21/18 10:03 03/21/18 11:00 Intake and Output: 03/21/18 03/21/18 06:59 18:59 Intake Total 1650 530 Output Total 1850 750 Balance -200 -220 - Medications Medications: Current Medications Bisoprolol Fumarate/HCTZ (Ziac 2.5-6.25 Mg) 1 tab PO DAILY [facility] Last Admin: 03/21/18 09:14 Dose: 1 tab Dexamethasone (Decadron Inj) 8 mg IV Q8H [facility] Last Admin: 03/21/18 04:02 Dose: 8 mg Fluconazole (Diflucan) 150 mg PO DAILY [facility] Last Admin: 03/21/18 09:25 Dose: Not Given Gabapentin (Neurontin) 100 mg PO BID [facility] Last Admin: 03/21/18 09:25 Dose: Not Given Hydroxychloroquine Sulfate (Plaquenil) 200 mg PO BID [facility]; Protocol Last Admin: 03/21/18 09:25 Dose: Not Given Sodium Chloride (Sodium Chloride 0.9%) 1,000 mls @ 100 mls/hr IV .Q10H [facility] Last Admin: 03/21/18 04:03 Dose: 100 mls/hr Clindamycin Phosphate 300 mg/ (Sodium Chloride) 52 mls @ 100 mls/hr IVPB Q8H [facility]; Protocol Last Admin: 03/21/18 10:18 Dose: 100 mls/hr Levothyroxine Sodium (Synthroid) 75 mcg PO DAILY@0630 [facility] Last Admin: 03/21/18 05:54 Dose: 75 mcg Metoclopramide HCl (Reglan) 10 mg IVP ACHS [facility] Last Admin: 03/21/18 08:07 Dose: Not Given Morphine Sulfate (Morphine) 2 mg IVP Q4 PRN PRN Reason: Pain, moderate (4-7) Last Admin: 03/19/18 06:16 Dose: 2 mg Pantoprazole Sodium (Protonix Inj) 40 mg IVP DAILY [facility] Last Admin: 03/21/18 09:16 Dose: 40 mg - Labs Labs: 03/21/18 04:51 03/21/18 04:51 PT 12.9 SECONDS (9.7-12.2) H 03/21/18 04:51 INR 1.2 03/21/18 04:51 APTT 32 SECONDS (21-34) 03/21/18 04:51 - Constitutional Appears: Non-toxic, No Acute Distress - Head Exam Head Exam: ATRAUMATIC, NORMAL INSPECTION, NORMOCEPHALIC - Eye Exam Eye Exam: EOMI, Normal appearance, PERRL Pupil Exam: NORMAL ACCOMODATION - ENT Exam ENT Exam: Mucous Membranes Moist - Neck Exam Neck Exam: Full ROM - Respiratory Exam Respiratory Exam: NORMAL BREATHING PATTERN. 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 Fourth ventricle is partially effaced. No h ydrocephalus at this time. Lumbar Spine MRI 03/19/18: No disc herniation or significant central canal or neural foraminal stenosis appreciated throughout the lumbar spine. No fracture or spondylolisthesis. Abnormal matter signal change identified at the sacrum which may be benign but somewhat suspicious particularly at the bilateral sacral alae and follow-up nuclear bone scan is advised to exclude potential metastasis, particularly given brain metastasis seen in brain MRI performed today 03/19. 1. ICU 2. Scheduled for Neuro Surgery decompression of fourth ventricle this morning 3. Follow up Neuro Surgery recommendations 4. Discussed with patient and family members the importance of follow up with cancer center upon discharge. Will continue to follow. Case discussed with Dr. Rod Mckenzie Chidi PGY2
[2018-03-21] MEDS ORDERED: Thrombin Topical 20,000 Intl Units Spray Kit TOP ONE (12:47)
[2018-03-21] MEDS ORDERED: Absorbable Gelatin Sponge Size 100 ONE (12:47)
[2018-03-21] MEDS ORDERED: Lidocaine/Epinephrine 1% 1:100000 10 ML IJ ONE (12:47)
[2018-03-21] MEDS ORDERED: Propofol 10 mg/ml Inj (20 ML) ONE ×2 (12:53→13:09)
[2018-03-21] MEDS ORDERED: Nitroglycerin 50mg in D5W 50 MG/250 ML BOTTLE IV ONE (12:55)
[2018-03-21] MEDS ORDERED: Vasopressin 20 Units/ml Inj ONE (12:56)
[2018-03-21] MEDS ORDERED: ePHEDrine 50 mg/ml Inj ONE (12:56)
[2018-03-21] MEDS ORDERED: Bacitracin 50,000 UNIT in Sodium Chloride 0.9% Irrig 1,000 ML IR SCH (13:00)
[2018-03-21] MEDS ORDERED: Bacitracin Ointment 30 GM TUBE ONE (13:42)
[2018-03-21] MEDS ORDERED: Vancomycin 1 gm/D5W 200 ml 1 GM/200 ML BAG IVPB ONE (13:43)
[2018-03-21] MEDS ORDERED: Neostigmine Methylsulfate 3mg/3ml Syringe IV ONE (14:42)
[2018-03-21] MEDS ORDERED: HYDROmorphone 1 mg/ml ISec IVP STA (15:42)
[2018-03-21] MEDS ORDERED: HYDROmorphone 1 mg/ml ISec ONE (15:47)
--- NOTE | 2018-03-22 02:02 | PN ---
DATE: 03/21/2018 SUBJECTIVE: The patient is seen today, 03/21/2018. She is not in any cardiopulmonary distress, and the patient's headache has been improved with Decadron. OBJECTIVE: VITALS: Blood pressure is 116/50, temperature 98.2, respiratory rate 14, and pulse 68. HEENT: Pupils equal, reactive to light. Normal-appearing mucosa of the conjunctivae, oropharynx, and nasal membrane mucosa. NECK: Supple. No JVD. No carotid bruit. No lymph node. No thyromegaly. CHEST AND LUNGS: Bilateral symmetrical expansion. Good air exchange. No rales. No rhonchi. CARDIOVASCULAR SYSTEM: PMI not localized. S1 and S2. No additional sounds. ABDOMEN: Normoactive bowel sounds. No tenderness. No organomegaly. No masses. EXTREMITIES: No cyanosis, no clubbing, no edema. CENTRAL NERVOUS SYSTEM: Alert, awake, oriented x2. No neurological deficit could be appreciated. ASSESSMENT: Metastatic disease, both to the brain as well as to the spine and possible liver with primary, most likely . PLAN: The patient is for craniotomy and decompression surgery, neurosurgery. Follow up oncology recommendations. Continue Decadron, and follow neurology recommendations. Derrick Matthews MD
[2018-03-22] MEDS: Clindamycin 300 MG in Sodium Chloride 0.9% 50 ML IVPB SCH ×2 (02:56→10:02)
[2018-03-22] MEDS: Dexamethasone 4 mg/1 ml IV SCH ×3 (03:56→20:25)
[2018-03-22 06:26] LABS: HEMOGLOBIN 12.1 g/dL (11.0-16.0); LYMPH # 0.9 K/uL (1.0-4.3); LYMPH % 8.2 % (20.0-40.0); MEAN CORPUSCULAR HEMOGLOBIN 30.8 pg (27.0-31.0); MEAN CORPUSCULAR HGB CONC 35.8 g/dL (33.0-37.0); MEAN PLATELET VOLUME 8.4 fL (7.2-11.7); MONO # 0.5 K/uL (0.0-0.8); MONO % 4.6 % (0.0-10.0); NEUT # 9.2 K/uL (1.8-7.0); NEUT % 87.2 % (50.0-75.0); NRBC % 0.1 % (0.0-2.0); PLATELET COUNT 281 K/uL (130-400); RBC 3.92 Mil/uL (3.80-5.20); RED CELL DISTRIBUTION WIDTH 12.8 % (11.5-14.5); WHITE BLOOD COUNT 10.6 K/uL (4.8-10.8)
[2018-03-22] MEDS: Levothyroxine 75 MCG TAB PO SCH (06:36)
[2018-03-22 06:39] LABS: ALB/GLOB RATIO 1.2 (1.0-2.1); ALBUMIN 3.5 g/dL (3.5-5.0); ALT/SGPT 29 U/L (9-52); AST/SGOT 26 U/L (14-36); BLOOD UREA NITROGEN 10 mg/dL (7-17); CALCIUM 8.8 mg/dl (8.6-10.4); GFR NON-AFRICAN AMERICAN > 60
--- NOTE | 2018-03-22 07:30 | CARD ---
APPROVED REPORT Date of service: 03/20/2018 EKG Measurement Heart [id number] <Conclusion> Normal sinus rhythm Inferior infarct, age undetermined Abnormal ECG
[2018-03-22 09:11] LABS: LYMPHOCYTE 8 % (20-40); MONOCYTE 3 % (0-10); NEUTROPHIL 89 % (50-75); PLATELET ESTIMATE NORMAL (NORMAL); TOTAL CELLS COUNTED 100
[2018-03-22 09:12] LABS: ANISOCYTOSIS SLIGHT; LARGE PLATELETS PRESENT; POIKILOCYTOSIS SLIGHT; TOXIC GRANULATION PRESENT
[2018-03-22 09:13] LABS: OVALOCYTES SLIGHT
--- NOTE | 2018-03-22 09:28 | CP.PCM.PN ---
Subjective - Date & Time of Evaluation Date of Evaluation: 03/22/18 Time of Evaluation: 09:28 - Subjective Subjective: po1 a a ox3 no cr nerve deficits no nystagmus no drift good st will adv activites keep in icu today Objective - Vital Signs/Intake and Output Vital Signs (last 24 hours): Temp Pulse Resp BP Pulse Ox 98.6 F 82 23 118/79 99 03/22/18 04:00 03/22/18 09:00 03/22/18 09:00 03/22/18 08:57 03/22/18 09:00 Intake and Output: 03/22/18 03/22/18 06:59 18:59 Intake Total 650 180 Output Total 975 450 Balance -325 -270 - Medications Medications: Current Medications Bisoprolol Fumarate/HCTZ (Ziac 2.5-6.25 Mg) 1 tab PO DAILY [facility] Last Admin: 03/21/18 09:14 Dose: 1 tab Dexamethasone (Decadron Inj) 8 mg IV Q8H [facility] Last Admin: 03/22/18 03:56 Dose: 8 mg Fluconazole (Diflucan) 150 mg PO DAILY [facility] Last Admin: 03/21/18 09:25 Dose: Not Given Gabapentin (Neurontin) 100 mg PO BID [facility] Last Admin: 03/21/18 17:29 Dose: Not Given Hydroxychloroquine Sulfate (Plaquenil) 200 mg PO BID [facility]; Protocol Last Admin: 03/21/18 17:29 Dose: Not Given Clindamycin Phosphate 300 mg/ (Sodium Chloride) 52 mls @ 100 mls/hr IVPB Q8H [facility]; Protocol Last Admin: 03/22/18 02:56 Dose: 100 mls/hr Levetiracetam 500 mg/ Dextrose 105 mls @ 420 mls/hr IVPB Q12H [facility] Last Admin: 03/22/18 03:58 Dose: 420 mls/hr Sodium Chloride (Sodium Chloride 0.9%) 1,000 mls @ 60 mls/hr IV .[id number] [facility] Last Admin: 03/21/18 15:32 Dose: 60 mls/hr Levothyroxine Sodium (Synthroid) 75 mcg PO DAILY@0630 [facility] Last Admin: 03/22/18 06:36 Dose: Not Given Metoclopramide HCl (Reglan) 10 mg IVP ACHS [facility] Last Admin: 03/22/18 07:52 Dose: 10 mg Morphine Sulfate (Morphine) 2 mg IVP Q4 PRN PRN Reason: Pain, moderate (4-7) Last Admin: 03/22/18 08:12 Dose: 2 mg Pantoprazole Sodium (Protonix Inj) 40 mg IVP DAILY [facility] Last Admin: 03/21/18 09:16 Dose: 40 mg - Labs Labs: 03/22/18 06:15 03/22/18 06:12 PT 12.9 SECONDS (9.7-12.2) H 03/21/18 04:51 INR 1.2 03/21/18 04:51 APTT 32 SECONDS (21-34) 03/21/18 04:51
[2018-03-22] MEDS: Bisoprolol-HCTZ 2.5-6.25 mg Tab PO SCH (09:48)
[2018-03-22] MEDS: Sodium Chloride 0.9% 1,000 ML IV SCH (10:04)
[2018-03-22] MEDS: Oxycodone/Acetaminophen 5/325 mg Tab PO PRN ×3 (11:28→20:07)
--- NOTE | 2018-03-22 12:04 | CP.PCM.PN ---
Subjective - Date & Time of Evaluation Date of Evaluation: 03/22/18 Time of Evaluation: 12:01 - Subjective Subjective: Patient awake, alert, deneis any visual disturbance, denies any abdominal pain, denies any nausea or vomitting Objective - Vital Signs/Intake and Output Vital Signs (last 24 hours): Temp Pulse Resp BP Pulse Ox 98.6 F 82 23 118/79 99 03/22/18 04:00 03/22/18 09:00 03/22/18 09:00 03/22/18 08:57 03/22/18 09:00 Intake and Output: 03/22/18 03/22/18 06:59 18:59 Intake Total 650 180 Output Total 975 450 Balance -325 -270 - Medications Medications: Current Medications Bisoprolol Fumarate/HCTZ (Ziac 2.5-6.25 Mg) 1 tab PO DAILY [facility] Last Admin: 03/22/18 09:48 Dose: 1 tab Dexamethasone (Decadron Inj) 8 mg IV Q8H [facility] Last Admin: 03/22/18 11:30 Dose: 8 mg Hydroxychloroquine Sulfate (Plaquenil) 200 mg PO BID [facility]; Protocol Last Admin: 03/22/18 09:48 Dose: 200 mg Levetiracetam 500 mg/ Dextrose 105 mls @ 420 mls/hr IVPB Q12H [facility] Last Admin: 03/22/18 03:58 Dose: 420 mls/hr Levothyroxine Sodium (Synthroid) 75 mcg PO DAILY@0630 [facility] Last Admin: 03/22/18 06:36 Dose: Not Given Metoclopramide HCl (Reglan) 10 mg IVP ACHS [facility] Last Admin: 03/22/18 11:31 Dose: 10 mg Oxycodone/Acetaminophen (Percocet 5/325 Mg Tab) 1 tab PO Q4H PRN PRN Reason: Pain, Mild (1-3) Stop: 03/25/18 09:20 Last Admin: 03/22/18 11:28 Dose: 1 tab Pantoprazole Sodium (Protonix Inj) 40 mg IVP DAILY [facility] Last Admin: 03/22/18 09:47 Dose: 40 mg - Labs Labs: 03/22/18 06:15 03/22/18 06:12 PT 12.9 SECONDS (9.7-12.2) H 03/21/18 04:51 INR 1.2 03/21/18 04:51 APTT 32 SECONDS (21-34) 03/21/18 04:51 - Head Exam Additional comments: clean dressing posterior occipital region - Eye Exam Pupil Exam: NORMAL ACCOMODATION, PERRL - ENT Exam ENT Exam: Mucous Membranes Moist - Respiratory Exam Respiratory Exam: Clear to Ausculation Bilateral, NORMAL BREATHING PATTERN - Cardiovascular Exam Cardiovascular Exam: REGULAR RHYTHM, +S1, +S2 - GI/Abdominal Exam GI & Abdominal Exam: Soft, Normal Bowel Sounds - Extremities Exam Extremities Exam: Full ROM, Normal Capillary Refill, Normal Inspection - Neurological Exam Neurological Exam: Alert, Awake, CN II-XII Intact, Oriented x3 - Skin Skin Exam: Normal Color Assessment and Plan - Assessment and Plan (Free Text) Assessment: s/p brain biopsy: continnue wound care, neurosurgery follow up -hypothyroidism: continue otal synthroid -continue dvt ppx scds (change to Sub Q heparin as pr neurosurgery) -pud ppx -Patient remains hemodynamically stable -d/c ruano -pt/ot -advance diet
--- NOTE | 2018-03-22 14:40 | CP.PCM.PN ---
Subjective - Date & Time of Evaluation Date of Evaluation: 03/22/18 Time of Evaluation: 14:38 - Subjective Subjective: Mrs. Styles was seen and examined today in the ICU. She complained of headache, but did not have any nausea, vomiting visual changes or new neurological deficits. There were no acute events overnight. She is POD 1, s/p cerebellar mass resection. Objective - Vital Signs/Intake and Output Vital Signs (last 24 hours): Temp Pulse Resp BP Pulse Ox 98.6 F 70 15 92/48 L 96 03/22/18 04:00 03/22/18 14:30 03/22/18 14:30 03/22/18 13:57 03/22/18 14:30 Intake and Output: 03/22/18 03/22/18 06:59 18:59 Intake Total 650 680 Output Total 975 975 Balance -325 -295 - Medications Medications: Current Medications Bisoprolol Fumarate/HCTZ (Ziac 2.5-6.25 Mg) 1 tab PO DAILY [facility] Last Admin: 03/22/18 09:48 Dose: 1 tab Dexamethasone (Decadron Inj) 8 mg IV Q8H [facility] Last Admin: 03/22/18 11:30 Dose: 8 mg Hydroxychloroquine Sulfate (Plaquenil) 200 mg PO BID [facility]; Protocol Last Admin: 03/22/18 09:48 Dose: 200 mg Levetiracetam 500 mg/ Dextrose 105 mls @ 420 mls/hr IVPB Q12H [facility] Last Admin: 03/22/18 03:58 Dose: 420 mls/hr Levothyroxine Sodium (Synthroid) 75 mcg PO DAILY@0630 [facility] Last Admin: 03/22/18 06:36 Dose: Not Given Metoclopramide HCl (Reglan) 10 mg IVP ACHS [facility] Last Admin: 03/22/18 11:31 Dose: 10 mg Oxycodone/Acetaminophen (Percocet 5/325 Mg Tab) 1 tab PO Q4H PRN PRN Reason: Pain, Mild (1-3) Stop: 03/25/18 09:20 Last Admin: 03/22/18 11:28 Dose: 1 tab Pantoprazole Sodium (Protonix Inj) 40 mg IVP DAILY [facility] Last Admin: 03/22/18 09:47 Dose: 40 mg - Labs Labs: 03/22/18 06:15 03/22/18 06:12 PT 12.9 SECONDS (9.7-12.2) H 03/21/18 04:51 INR 1.2 03/21/18 04:51 APTT 32 SECONDS (21-34) 03/21/18 04:51 - Neurological Exam Neurological Exam: Alert, Awake, CN II-XII Intact, Oriented x3 Neuro motor strength exam: Left Upper Extremity: 4, Right Upper Extremity: 4, Left Lower Extremity: 4, Right Lower Extremity: 4 Additional comments: Ataxic on the right. Sensation intact. Reflexes brisk. Assessment and Plan (1) Cerebellar mass Assessment & Plan: The patient is doing well s/p resection. Neurologically, she is intact. She complains of headache, but will defer to primary team and neurosurgery for pain management. Status: Acute
--- NOTE | 2018-03-22 19:46 | PN ---
DATE: 03/22/2018 SUBJECTIVE: The patient is seen today, 03/22/2018. She is not in any cardiopulmonary distress, postoperative day #1. PHYSICAL EXAMINATION VITAL SIGNS: Blood pressure 92/48, temperature 98.4, respiratory rate 12 and pulse 66. HEENT: Pupils equal, reactive to light. Normal-appearing mucosa of the conjunctivae, oropharynx and nasal membrane mucosa. The patient has a dressing on the back of her head. NECK: Supple. No JVD. No carotid bruit. No lymph node. No thyromegaly. CHEST AND LUNGS: Bilateral symmetrical expansion. Good air exchange. No rales, no rhonchi. CARDIOVASCULAR SYSTEM: PMI not localized. S1 and S2. No additional sounds. ABDOMEN: Normoactive bowel sounds. No tenderness. No organomegaly. No masses. EXTREMITIES: No cyanosis, no clubbing, no edema. CENTRAL NERVOUS SYSTEM: Alert, awake, oriented x3. No neurological deficit could be appreciated. ASSESSMENT: 1. Metastatic disease with probable breast cancer primary. 2. Hypertension. 3. History of systemic lupus. PLAN: Discussed with Neurosurgery. We will order a bone scan, awaiting the pathology report. Continue ICU care for today. Continue steroid as well as prophylactic antiseizure medications. Derrick Matthews MD
[2018-03-23] MEDS: Oxycodone/Acetaminophen 5/325 mg Tab PO PRN ×2 (03:12→13:38)
[2018-03-23] MEDS: Dexamethasone 4 mg/1 ml IV SCH (03:14)
[2018-03-23 06:31] LABS: HEMOGLOBIN 11.8 g/dL (11.0-16.0); LYMPH # 0.8 K/uL (1.0-4.3); LYMPH % 7.5 % (20.0-40.0); MEAN CELL VOLUME 87.6 fL (81.0-99.0); MEAN CORPUSCULAR HEMOGLOBIN 30.1 pg (27.0-31.0); MEAN CORPUSCULAR HGB CONC 34.4 g/dL (33.0-37.0); MEAN PLATELET VOLUME 8.2 fL (7.2-11.7); MONO # 0.5 K/uL (0.0-0.8); MONO % 4.7 % (0.0-10.0); NEUT # 9.1 K/uL (1.8-7.0); NEUT % 87.8 % (50.0-75.0); PLATELET COUNT 283 K/uL (130-400); RBC 3.93 Mil/uL (3.80-5.20); RED CELL DISTRIBUTION WIDTH 13.1 % (11.5-14.5); WHITE BLOOD COUNT 10.3 K/uL (4.8-10.8)
[2018-03-23] MEDS: Levothyroxine 75 MCG TAB PO SCH (06:44)
[2018-03-23 07:02] LABS: ALB/GLOB RATIO 1.1 (1.0-2.1); ALBUMIN 3.5 g/dL (3.5-5.0); ALT/SGPT 34 U/L (9-52); AST/SGOT 23 U/L (14-36); BLOOD UREA NITROGEN 12 mg/dL (7-17); CALCIUM 8.7 mg/dl (8.6-10.4); GFR NON-AFRICAN AMERICAN > 60
[2018-03-23 09:13] LABS: LYMPHOCYTE 6 % (20-40); MONOCYTE 1 % (0-10); NEUTROPHIL 93 % (50-75); PLATELET ESTIMATE NORMAL (NORMAL); TOTAL CELLS COUNTED 100
--- NOTE | 2018-03-23 09:28 | OP ---
PROCEDURE DATE: 03/21/2018 PREOPERATIVE DIAGNOSIS: Multiple cerebral and cerebellar masses, large cerebellar right side of the neck. POSTOPERATIVE DIAGNOSIS: Multiple cerebral and cerebellar masses, large cerebellar right side of the neck. OPERATIVE PROCEDURE: Right posterior fascia craniectomy and excision of cerebellar mass. SURGEON: Camron Bennett MD CO SURGEON: Paul Morin MD DESCRIPTION OF PROCEDURE: The patient was brought to the operating room, intubated appropriately, turned prone onto the bolsters. Her head was placed in the [employer] pin head batcher and her head was kept in a somewhat neutral slightly flexed position. The suboccipital area hair was clipped and the area from just above the inion including the neck was then prepped and draped in the usual manner. A midline incision was marked and instilled lidocaine with epinephrine and then taken sharply through the skin from the inion down to the upper cervical and was divided with the electrocautery. Weitlaner retractors were placed and then dissection was made in the midline with the electrocautery bringing this down to the skull and the posterior musculature was then stripped off the suboccipital bone on the right side and just off to the midline on the left side where retractors were replaced. Two ridge holes were made and connected with the craniotome. The underlying dura was very full and abnormal looking. The dura was then incised in a cruciate manner and we immediately encountered tumor mass. This looked abnormal. The tumor was debulked using suction and pituitary rongeurs, and the capsule was developed using blunt dissection and cottonoid patties, and we were able to remove what looked like the gross total resection. We obtained hemostasis on the surrounding brain and left a combination of hemostatic agents including Surgicel and Surgifoam powder in the . We made certain that hemostasis was meticulous. The dura could not be primarily repaired. A piece of Gelfoam was placed over the dura, covered with DuraSeal and another piece of Gelfoam was then placed and again that was covered with DuraSeal. At this point, the deep muscle was reapproximated with 0 Vicryl, the fascia was reapproximated with 0 Vicryl, subcuticular multiple layers with 2-0 Vicryl and skin kathleen were applied to the skin edge. Sterile dressing was applied. The patient was taken out of the [employer] pin head batcher back onto her bed, extubated and found to be moving all extremities, talking and following commands. Pupils were small, equal and reactive. Blood loss was approximately 100 mL. It was elected not to replace the cranial vault to allow possible expansion as she developed tumor regrowth. Camron Bennett MD
[2018-03-23] MEDS: Pantoprazole 40 mg EC Tab PO SCH ×2 (10:03→18:22)
--- NOTE | 2018-03-23 10:14 | CP.CCUPN ---
CCU Subjective - Physician Review Subjective (Free Text): 03/21/18 09:25 Patient seen and examined at bedside. No acute overnight events. Patient is plan for craniotomy with excision of metastasis today at 11:30AM. 03/23/18 11:04 Patient seen and examined at bedside. No acute overnight events. POD #2, patient is doing well and is stable to transfer to telemetry. As per neurosurgery, patient will have to continue at home: Dexamethasone 4mg PO Q6 for 48 hours then, Dexamethasone 2mg PO Q6 for 48 hours then, Dexamethasone 2mg PO Q12 Keppra 500mg PO Q12 C/w GI prophylaxis: protonix PO or Maalox Critical Care Time Spent (in minutes): 35 CCU Objective - Vital Signs / Intake & Output Vital Signs (Last 4 hours): Vital Signs Pulse Resp BP Pulse Ox 03/23/18 07:00 78 16 98 03/23/18 06:57 77 19 128/66 98 Intake and Output (Last 8hrs): Intake & Output 03/22/18 03/23/18 03/23/18 22:59 06:59 14:59 Intake Total 460 320 0 Output Total 650 600 0 Balance -190 -280 0 Intake: Intake, IV Amount 100 0 Right Hand 100 0 Oral 460 220 Output: Urine 650 600 0 Urine, Voided 650 600 0 Other: # Voids Urine, Voided 1 - Physical Exam Head: Positive for: Atraumatic, Normocephalic Pupils: Positive for: PERRL Conjunctiva: Positive for: Normal Mouth: Positive for: Moist Mucous Membranes Respiratory/Chest: Positive for: Clear to Auscultation, Good Air Exchange. Negative for: Respiratory Distress, Accessory Muscle Use, Wheezes, Rales, Rhonchi Cardiovascular: Positive for: Regular Rate and Rhythm, Normal S1, S2. Negative for: Murmurs Abdomen: Positive for: Normal Bowel Sounds. Negative for: Tenderness, Distention, Peritoneal Signs Upper Extremity: Positive for: Normal Inspection. Negative for: Cyanosis, Edema Lower Extremity: Positive for: Normal Inspection, NORMAL PULSES. Negative for: Edema, CALF TENDERNESS Neurological: Positive for: GCS=15, CN II-XII Intact, Speech Normal, Motor Func Grossly Intact, Normal Sensory Function Skin: Positive for: Warm, Dry, Normal Color. Negative for: Rashes Psychiatric: Positive for: Alert, Oriented x 3, Normal Insight, Normal Concentration - Medications Active Medications: Active Medications Generic Name Dose Route Start Last Admin Trade Name Freq PRN Reason Stop Dose Admin Bisoprolol Fumarate/HCTZ 1 tab 03/19/18 10:00 03/22/18 09:48 Ziac 2.5-6.25 Mg PO 1 tab DAILY RAZIA Administration Dexamethasone 8 mg 03/23/18 08:30 03/23/18 09:00 Decadron PO 03/26/18 08:31 8 mg Q8H RAZIA Administration Hydroxychloroquine Sulfate 200 mg 03/19/18 10:00 03/23/18 10:02 Plaquenil PO 200 mg BID RAZIA Administration Protocol Levetiracetam 500 mg 03/23/18 10:00 03/23/18 10:03 Keppra PO 500 mg BID RAZIA Administration Levothyroxine Sodium 75 mcg 03/19/18 06:30 03/23/18 06:44 Synthroid PO 75 mcg DAILY@0630 RAZIA Administration Metoclopramide HCl 10 mg 03/19/18 11:30 03/23/18 07:45 Reglan IVP Not Given ACHS RAZIA Oxycodone/Acetaminophen 1 tab 03/22/18 09:19 03/23/18 03:12 Percocet 5/325 Mg Tab PO 03/25/18 09:20 1 tab Q4H PRN Administration Pain, Mild (1-3) Pantoprazole Sodium 40 mg 03/23/18 10:00 03/23/18 10:03 Protonix Ec Tab PO 40 mg BID RAZIA Administration - Patient Studies Lab Studies: Lab Studies 03/23/18 03/23/18 Range/Units 06:23 06:20 WBC 10.3 (4.8-10.8) K/uL RBC 3.93 (3.80-5.20) Mil/uL Hgb 11.8 (11.0-16.0) g/dL Hct 34.4 (34.0-47.0) % MCV 87.6 (81.0-99.0) fL MCH 30.1 (27.0-31.0) pg MCHC 34.4 (33.0-37.0) g/dL RDW 13.1 (11.5-14.5) % Plt Count 283 (130-400) K/uL MPV 8.2 (7.2-11.7) fL Neut % (Auto) 87.8 H (50.0-75.0) % Lymph % (Auto) 7.5 L (20.0-40.0) % Dare % (Auto) 4.7 (0.0-10.0) % Eos % (Auto) 0.0 (0.0-4.0) % Baso % (Auto) 0.0 (0.0-2.0) % Neut # (Auto) 9.1 H (1.8-7.0) K/uL Lymph # (Auto) 0.8 L (1.0-4.3) K/uL Dare # (Auto) 0.5 (0.0-0.8) K/uL Eos # (Auto) 0.0 (0.0-0.7) K/uL Baso # (Auto) 0.0 (0.0-0.2) K/uL Neutrophils % (Manual) 93 H (50-75) % Lymphocytes % (Manual) 6 L (20-40) % Monocytes % (Manual) 1 (0-10) % Platelet Estimate Normal (NORMAL) RBC Morphology Normal Sodium 139 (132-148) mmol/L Potassium 3.8 (3.6-5.2) mmol/L Chloride 101 (98-107) mmol/L Carbon Dioxide 29 (22-30) mmol/L Anion Gap 13 (10-20) BUN 12 (7-17) mg/dL Creatinine 0.6 L (0.7-1.2) mg/dL Est GFR ( Amer) > 60 Est GFR (Non-Af Amer) > 60 Random Glucose 179 H (65-105) mg/dL Calcium 8.7 (8.6-10.4) mg/dl Phosphorus 3.3 (2.5-4.5) mg/dL Magnesium 2.1 (1.6-2.3) mg/dL Total Bilirubin 0.8 (0.2-1.3) mg/dL AST 23 (14-36) U/L ALT 34 (9-52) U/L Alkaline Phosphatase 76 (38-126) U/L Total Protein 6.7 (6.3-8.3) g/dL Albumin 3.5 (3.5-5.0) g/dL Globulin 3.1 (2.2-3.9) gm/dL Albumin/Globulin Ratio 1.1 (1.0-2.1) Laboratory Results - last 24 hr 03/23/18 03/23/18 06:20 06:23 WBC 10.3 RBC 3.93 Hgb 11.8 Hct 34.4 MCV 87.6 MCH 30.1 MCHC 34.4 RDW 13.1 Plt Count 283 MPV 8.2 Neut % (Auto) 87.8 H Lymph % (Auto) 7.5 L Dare % (Auto) 4.7 Eos % (Auto) 0.0 Baso % (Auto) 0.0 Neut # (Auto) 9.1 H Lymph # (Auto) 0.8 L Dare # (Auto) 0.5 Eos # (Auto) 0.0 Baso # (Auto) 0.0 Neutrophils % (Manual) 93 H Lymphocytes % (Manual) 6 L Monocytes % (Manual) 1 Platelet Estimate Normal RBC Morphology Normal Sodium 139 Potassium 3.8 Chloride 101 Carbon Dioxide 29 Anion Gap 13 BUN 12 Creatinine 0.6 L Est GFR ( Amer) > 60 Est GFR (Non-Af Amer) > 60 Random Glucose 179 H Calcium 8.7 Phosphorus 3.3 Magnesium 2.1 Total Bilirubin 0.8 AST 23 ALT 34 Alkaline Phosphatase 76 Total Protein 6.7 Albumin 3.5 Globulin 3.1 Albumin/Globulin Ratio 1.1 Critical Care Progress Note - Nutrition Nutrition: Nutrition Category Date Time Status Heart Healthy Diet [DIET] Diets 03/22/18 Breakfast Active Assessment/Plan - Assessment and Plan (Free Text) Assessment: Patient is a 58 year old female with a past medical history of HTN, RA, and hypothyroidism presenting with a headache for 1 month and right sided leg pain for 3 months. Patient is POD #2 of craniotomy with excision of metastasis. Plan: Neuro: Metastatic brain cancer - Brain MRI (03/19): Findings most compatible with multifocal metastasis above and below the tentorium with dominant lesion 4.1 cm exerting significant mass effect at the blanca and medulla but without reactive changes intrinsically in those portions of the brainstem. Fourth ventricle is partially effaced. No hydrocephalus at this time. - Lumbar spine CT (03/19): No disc herniation or significant central canal or neural foraminal stenosis appreciated throughout the lumbar spine. No fracture or spondylolisthesis. Abnormal matter signal change identified at the sacrum which may be benign but somewhat suspicious particularly at the bilateral sacral alae and follow-up nuclear bone scan is advised to exclude potential metastasis, particularly given brain metastasis seen in brain MRI performed today 03/19/2018. - Neurosurgery consulted, Dr. Bennett - Neurology consulted, Dr. John - Craniotomy with excision of metastasis, POD #2 - Neurochecks Q4H - Dexamethasone 4mg Q6 PO for 48 hours - Gabapentin 100mg PO BID - Percocet 5/325mg Q4H PRN Pulm: - No acute issues Cardiovascular: Hypertension - Continue home medication Bisoprolol/HTZ 2.5/6.25mg PO QD Endo: Hypothyroidism - Continue home medication Levothyroxine 75mg PO QD GI: Liver mass 2/2 possible metastasis - Reglan 10mg IV ACHS - CT abd/pelvis/chest (03/20): Indeterminate 15 mm posterior right hepatic lobe hypodense mass. Metastatic disease must be excluded. If indicated, dedicated cross-sectional imaging may be considered. Abnormal appearance of bilateral adrenal glands likely mixture of nodules and hypertrophy. Dedicated adrenal gland CT or MRI may be considered for further characterization. Metastatic disease must be excluded. Small indeterminate lucencies involving the proximal femur, lesser trochanter unclear significance. In the setting of breast cancer, if clinical concern for osseous metastases, recommend further evaluation with nuclear medicine bone scan. - See full report Renal: - No acute issues Heme/onc: Breast cancer - Heme-onc consulted, Dr. Frost - Surgery consulted, Dr. Cruz - CT abd/pelvis/chest (03/20): Marked irregular skin thickening of the right breast with asymmetric breast soft tissue. 6 mm nodule within the medial left breast. Correlate for history of breast cancer. Recommend correlation with dedicated breast imaging. Right axillary adenopathy measuring up to 2.2 cm in short axis on the right; appearance most consistent with metastatic disease. - See full report ID: - No acute issues Rheum: Rheumatoid arthritis - Continue home medication for RA, Hydroxychloroquine 200mg PO BID Prophylaxis: - Protonix 40mg IV QD - SCD's - Chemical anticoagulants held for surgery Case discussed with Dr. Ludwin Peraza, PGY-1
[2018-03-23] MEDS: Bisoprolol-HCTZ 2.5-6.25 mg Tab PO SCH (10:30)
--- NOTE | 2018-03-23 10:51 | CP.PCM.PN ---
Subjective - Date & Time of Evaluation Date of Evaluation: 03/23/18 Time of Evaluation: 10:50 - Subjective Subjective: pod 2 doing well fully intact neurologically wound clean ok to d/c home keep on steroids wean to decadron 2q12 keep on kepra Objective - Vital Signs/Intake and Output Vital Signs (last 24 hours): Temp Pulse Resp BP Pulse Ox 98.5 F 78 16 128/66 98 03/23/18 01:00 03/23/18 07:00 03/23/18 07:00 03/23/18 06:57 03/23/18 07:00 Intake and Output: 03/23/18 03/23/18 06:59 18:59 Intake Total 420 0 Output Total 950 0 Balance -530 0 - Medications Medications: Current Medications Bisoprolol Fumarate/HCTZ (Ziac 2.5-6.25 Mg) 1 tab PO DAILY [facility] Last Admin: 03/22/18 09:48 Dose: 1 tab Dexamethasone (Decadron) 8 mg PO Q8H [facility] Stop: 03/26/18 08:31 Last Admin: 03/23/18 09:00 Dose: 8 mg Hydroxychloroquine Sulfate (Plaquenil) 200 mg PO BID [facility]; Protocol Last Admin: 03/23/18 10:02 Dose: 200 mg Levetiracetam (Keppra) 500 mg PO BID [facility] Last Admin: 03/23/18 10:03 Dose: 500 mg Levothyroxine Sodium (Synthroid) 75 mcg PO DAILY@0630 [facility] Last Admin: 03/23/18 06:44 Dose: 75 mcg Metoclopramide HCl (Reglan) 10 mg IVP ACHS [facility] Last Admin: 03/23/18 07:45 Dose: Not Given Oxycodone/Acetaminophen (Percocet 5/325 Mg Tab) 1 tab PO Q4H PRN PRN Reason: Pain, Mild (1-3) Stop: 03/25/18 09:20 Last Admin: 03/23/18 03:12 Dose: 1 tab Pantoprazole Sodium (Protonix Ec Tab) 40 mg PO BID [facility] Last Admin: 03/23/18 10:03 Dose: 40 mg - Labs Labs: 03/23/18 06:23 03/23/18 06:20 PT 12.9 SECONDS (9.7-12.2) H 03/21/18 04:51 INR 1.2 03/21/18 04:51 APTT 32 SECONDS (21-34) 03/21/18 04:51
--- NOTE | 2018-03-23 15:29 | NM ---
Date of service: 03/23/2018 PROCEDURE: Whole Body Bone Scan HISTORY: metastatic disease COMPARISON: Comparison is made to the previous CT of the chest abdomen and pelvis dated 03/20/2018 TECHNIQUE: Following administration of 21.4 miCu of Tc MDP multiplanar whole body images were obtained. FINDINGS: Evidence for bony metastatic disease: There are 2 foci of radiotracer accumulation noted at the proximal right femur involving the lesser trochanter and the proximal right femur shaft. Although this location is not typical for metastasis, the possibility of osseous metastasis should be excluded. Degenerative uptake: Mild degenerative changes noted in the shoulders knees and ankles. Physiologic uptake: Normal physiologic activity in the kidneys. Other findings: None. IMPRESSION: Two foci of abnormal accumulation of the radiotracer at the right lesser trochanter and proximal right femoral shaft may represent osseous metastasis. Differential consideration includes benign bony lesions. No other abnormal radiotracer accumulation in the skeletal noted.
[2018-03-23] MEDS ORDERED: Sodium Chloride 0.9% 1,000 ML IV ONE ×2 (19:24→19:27)
[2018-03-24] MEDS: Levothyroxine 75 MCG TAB PO SCH (06:23)
[2018-03-24 06:40] LABS: BASO % 0.1 % (0.0-2.0); HEMOGLOBIN 11.1 g/dL (11.0-16.0); LYMPH # 0.7 K/uL (1.0-4.3); LYMPH % 12.1 % (20.0-40.0); MEAN CELL VOLUME 87.2 fL (81.0-99.0); MEAN CORPUSCULAR HEMOGLOBIN 30.4 pg (27.0-31.0); MEAN CORPUSCULAR HGB CONC 34.8 g/dL (33.0-37.0); MEAN PLATELET VOLUME 8.2 fL (7.2-11.7); MONO # 0.3 K/uL (0.0-0.8); MONO % 5.8 % (0.0-10.0); NEUT # 4.9 K/uL (1.8-7.0); RBC 3.66 Mil/uL (3.80-5.20); RED CELL DISTRIBUTION WIDTH 13.1 % (11.5-14.5)
[2018-03-24 06:56] LABS: ALB/GLOB RATIO 1.1 (1.0-2.1); ALBUMIN 3.2 g/dL (3.5-5.0); ALT/SGPT 30 U/L (9-52); AST/SGOT 17 U/L (14-36); BLOOD UREA NITROGEN 17 mg/dL (7-17); CALCIUM 8.4 mg/dl (8.6-10.4); GFR NON-AFRICAN AMERICAN > 60
[2018-03-24] MEDS: Oxycodone/Acetaminophen 5/325 mg Tab PO PRN (09:12)
[2018-03-24] MEDS: Pantoprazole 40 mg EC Tab PO SCH (10:32)
--- NOTE | 2018-03-24 14:27 | PN ---
DATE: 03/23/2018 SUBJECTIVE: The patient was seen on 03/23/2018. She was feeling dizzy and mostly vertigo-like symptoms. PHYSICAL EXAMINATION: VITAL SIGNS: Blood pressure was 114/63, temperature 98.2, respiratory rate 18, and pulse of 80. HEENT: Pupils equal, reactive to light. Normal-appearing mucosa of the conjunctivae, oropharynx and nasal membrane mucosa. NECK: Supple. No JVD. No carotid bruit. No lymph node. No thyromegaly. CHEST AND LUNGS: Bilateral symmetrical expansion. Good air exchange. No rales. No rhonchi. CARDIOVASCULAR: PMI not localized. S1 and S2. No additional sounds. ABDOMEN: Normoactive bowel sounds. No tenderness. No organomegaly. No masses. EXTREMITIES: No cyanosis. No clubbing. No edema. CENTRAL NERVOUS SYSTEMS: Alert, awake, oriented x2. No neurological deficit could be appreciated. ASSESSMENT: 1. Metastatic disease, likely breast cancer. 2. Hypertension. 3. History of systemic lupus erythematosus. PLAN: Continue tapering steroids and physical therapy, and we will follow up oncology recommendations. Derrick Matthews MD
--- NOTE | 2018-03-24 17:35 | CP.PCM.PN ---
Subjective - Date & Time of Evaluation Date of Evaluation: 03/24/18 Time of Evaluation: 14:30 - Subjective Subjective: Neurology Consultation Follow-Up Note: Mrs. Styles was seen and evaluated today in the ICU. She complains of headache and persistent pain to her right leg, which she also had pre-op. She admits to blurry vision only when she has episodes of dizziness. She admits to ambulating with PT today and looks forward to some sort of rehab once she is discharged. Today she denies visual changes, dizziness, chest pain, shortness of breath, n ausea/vomiting, paresthesias, weakness. No acute overnight events noted. Mrs. Styles is POD # 3 of a cerebellar mass excision. Family at bedside. Objective - Vital Signs/Intake and Output Vital Signs (last 24 hours): Temp Pulse Resp BP Pulse Ox 97.4 F L 74 22 126/55 L 96 03/23/18 20:00 03/24/18 14:00 03/24/18 14:00 03/24/18 13:57 03/24/18 12:00 Intake and Output: 03/24/18 03/24/18 06:59 18:59 Intake Total 2220 720 Output Total 1400 1000 Balance 820 -280 - Medications Medications: Current Medications Bisoprolol Fumarate (Zebeta) 2.5 mg PO Q24H [facility] Last Admin: 03/24/18 12:04 Dose: 2.5 mg Dexamethasone (Decadron) 2 mg PO Q6H [facility] Stop: 03/27/18 12:01 Dexamethasone (Decadron) 2 mg PO Q12H [facility] Dexamethasone (Decadron) 4 mg PO Q6H [facility] Stop: 03/25/18 12:01 Last Admin: 03/24/18 13:21 Dose: 4 mg Famotidine (Pepcid) 20 mg PO BID [facility] Levetiracetam (Keppra) 500 mg PO BID [facility] Last Admin: 03/24/18 10:32 Dose: 500 mg Levothyroxine Sodium (Synthroid) 75 mcg PO DAILY@0630 [facility] Last Admin: 03/24/18 06:23 Dose: 75 mcg Metoclopramide HCl (Reglan) 10 mg IVP ACHS [facility] Last Admin: 03/24/18 12:10 Dose: Not Given Oxycodone/Acetaminophen (Percocet 5/325 Mg Tab) 1 tab PO Q4H PRN PRN Reason: Pain, Mild (1-3) Stop: 03/25/18 09:20 Last Admin: 03/24/18 09:12 Dose: 1 tab - Labs Labs: 03/24/18 06:23 03/24/18 06:27 PT 12.9 SECONDS (9.7-12.2) H 03/21/18 04:51 INR 1.2 03/21/18 04:51 APTT 32 SECONDS (21-34) 03/21/18 04:51 - Constitutional Appears: Well, Non-toxic, No Acute Distress - Head Exam Additional comments: surgical incision noted - Eye Exam Eye Exam: EOMI, Normal appearance Pupil Exam: NORMAL ACCOMODATION, PERRL - ENT Exam ENT Exam: Mucous Membranes Moist, Normal Exam - Neck Exam Neck Exam: Full ROM - Respiratory Exam Respiratory Exam: NORMAL BREATHING PATTERN - Extremities Exam Extremities Exam: Normal Inspection. absent: Full ROM Additional comments: limited ROM to right leg 2/2 pain - Neurological Exam Neurological Exam: Alert, Awake, CN II-XII Intact, Oriented x3 Neuro motor strength exam: Left Upper Extremity: 5, Right Upper Extremity: 5, Left Lower Extremity: 5, Right Lower Extremity: 5 (pt noted grimacing with exam of RLE, however, strength 5/5) Additional comments: reflexes brisk bilaterally; no pronator drift bilaterally; speech clear; no ataxia; sensation equal. Gait not assessed due to patient's complaint of RLE pain at time of exam. - Psychiatric Exam Psychiatric exam: Normal Affect, Normal Mood - Skin Skin Exam: Normal Color Assessment and Plan (1) Cerebellar mass Assessment & Plan: -Mrs. Styles is doing well post-procedure. -Pain management deferred to primary team. -Continue PT/OT. -Rehab once discharged; outpatient versus [facility] per family and patient's request. -Will continue to follow while in the hospital. -Please notify neuro team of any acute changes. Case discussed with Dr. John. Thank you for allowing us to participate in the care of this patient. Status: Acute
[2018-03-25] MEDS: Levothyroxine 75 MCG TAB PO SCH (05:40)
[2018-03-25] MEDS: Oxycodone/Acetaminophen 5/325 mg Tab PO PRN (06:22)
[2018-03-25 08:51] LABS: BASO % 0.1 % (0.0-2.0); HEMOGLOBIN 12.4 g/dL (11.0-16.0); LYMPH # 0.8 K/uL (1.0-4.3); LYMPH % 14.4 % (20.0-40.0); MEAN CELL VOLUME 87.4 fL (81.0-99.0); MEAN CORPUSCULAR HEMOGLOBIN 30.5 pg (27.0-31.0); MEAN CORPUSCULAR HGB CONC 34.9 g/dL (33.0-37.0); MEAN PLATELET VOLUME 8.6 fL (7.2-11.7); MONO # 0.2 K/uL (0.0-0.8); MONO % 3.4 % (0.0-10.0); NEUT # 4.4 K/uL (1.8-7.0); NEUT % 82.1 % (50.0-75.0); NRBC % 0.1 % (0.0-2.0); RBC 4.07 Mil/uL (3.80-5.20); RED CELL DISTRIBUTION WIDTH 12.7 % (11.5-14.5); WHITE BLOOD COUNT 5.4 K/uL (4.8-10.8)
[2018-03-25 09:22] LABS: ALB/GLOB RATIO 1.2 (1.0-2.1); ALBUMIN 3.6 g/dL (3.5-5.0); ALT/SGPT 32 U/L (9-52); AST/SGOT 18 U/L (14-36); BLOOD UREA NITROGEN 14 mg/dL (7-17); CALCIUM 8.5 mg/dl (8.6-10.4); GFR NON-AFRICAN AMERICAN > 60
--- NOTE | 2018-03-25 22:42 | PN ---
DATE: 03/25/2018 SUBJECTIVE: The patient is seen today, 03/25/2018. She is still feeling dizzy and generalized weakness and unsteadiness with need of assistance to walk. The patient also has pain on the right lower extremity. OBJECTIVE: VITAL SIGNS: Blood pressure is 126/76, temperature 98.5, respiratory rate 18, and pulse of 64. HEENT: Pupils equal and reactive to light. Normal-appearing mucosa of the conjunctivae, oropharynx, and nasal membrane mucosa. NECK: Supple. No JVD. No carotid bruit. No lymph node. No thyromegaly. CHEST AND LUNGS: Bilateral symmetrical expansion. Good air exchange. No rales, no rhonchi. CARDIOVASCULAR SYSTEM: PMI not localized. S1, S2. No additional sounds. ABDOMEN: Normoactive bowel sounds. No tenderness. No organomegaly. No masses. EXTREMITIES: No cyanosis, no clubbing, no edema. [employer] HEALTH: Alert, awake, oriented x2. No neurological deficit could be appreciated. ASSESSMENT: 1. Metastatic disease with brain metastasis, status post craniotomy, the primary likely to be breast cancer. 2. History of systemic lupus erythematosus. 3. Hypothyroidism. 4. Hypertension. PLAN: We will give the patient pain medications for the right lower extremity pain. Follow up with Oncology. Follow with Pathology regarding the pathology report. Derrick Matthews MD
[2018-03-26] MEDS: Levothyroxine 75 MCG TAB PO SCH (05:31)
--- NOTE | 2018-03-26 10:17 | VASCLAB ---
Date of service: 03/26/2018 PROCEDURE: Right Lower Extremity Venous Duplex Exam. HISTORY: rt leg pain PRIORS: None. TECHNIQUE: Right common femoral, femoral, popliteal and posterior tibial, peroneal and great saphenous veins were evaluated. Flow was assessed with color Doppler, compressibility, assessment of phasic flow and augmentation response. Report prepared by SAMUEL Yoon, RVT FINDINGS: RIGHT: 1. Common Femoral Vein: 1.1. Compressibility - Fully compressible: Thrombus - None: Flow - Phasic: Augmentation -Normal: Reflux - None. 2. Femoral Vein: 2.1. Compressibility - Fully compressible: Thrombus - None: Flow - Phasic: Augmentation -Normal: Reflux - None. 3. Popliteal Vein: 3.1. Compressibility - Fully compressible: Thrombus - None: Flow - Phasic: Augmentation -Normal: Reflux - None. 4. Posterior Tibial Vein: 4.1. Compressibility - Fully compressible: Thrombus - None: Flow - Phasic: Augmentation -Normal: Reflux - None. 5. Peroneal Vein: 5.1. Compressibility - Fully compressible: Thrombus - None: Flow - Phasic: Augmentation -Normal: Reflux - None. 6. Great Saphenous Vein: 6.1. Compressibility - Fully compressible: Thrombus -None: Flow - Phasic: Augmentation - Normal: Reflux - None. OTHER FINDINGS: IMPRESSION: No evidence of deep or superficial vein thrombosis of the right lower extremity with excellent venous flow. Normal valve function noted of the right side. Normal venous flow noted in the left common femoral vein.
--- NOTE | 2018-03-26 10:58 | CP.PCM.CON ---
History of Present Illness - History of Present Illness History of Present Illness: Palliative consult requested by Doctor Ludwin Marte for goals of care discussion Patient is a 58 yo female admitted with complains of chronic headache X 1 month and Right leg pain X 2 months. Patient reports her walk is unsteady due to pain. Diagnostic studies on this admission were significant for mets to the brain , including a brain stem and mets to right femur. Patient is seen by Doctor Margot, oncology and Decadron started. Neuro surgery suggested craniotomy which was done and biopsied. Pathology results pending. The primary cancer site is still not known. Patient reported some breast discomfort about 2 months ago and fallowed up with Doctor Anthony when was treated with antibiotic. PMH: HTN, hypothyroidism Soc. Hx: , lives at home, denies alcohol/tobacco use Fam. Hx: denied Review of Systems - Constitutional Additional comments: Unsteady gait - EENT Eyes: absent: As Per HPI, Blind Spots, Blurred Vision, Change in Vision, Decreased Night Vision, Diplopia, Discharge, Dry Eye, Exophthalmos, Floaters, Irritation, Itchy Eyes, Loss of Peripheral Vision, Pain, Photophobia, Requires Corrective Lenses, Sees Flashes, Spots in Vision, Tunnel Vision, Other Visual Disturbances, Loss of Vision, Other Ears: absent: As Per HPI, Decreased Hearing, Ear Discharge, Ear Pain, Tinnitus, Abnormal Hearing, Disequilibrium, Dizziness, Other Nose/Mouth/Throat: absent: As Per HPI, Epistaxis, Nasal Congestion, Nasal Discharge, Nasal Obstruction, Nasal Trauma, Nose Pain, Post Nasal Drip, Sinus Pain, Sinus Pressure, Bleeding Gums, Change in Voice, Dental Pain, Dry Mouth, Dysphagia, Halitosis, Hoarsness, Lip Swelling, Mouth Lesions, Mouth Pain, Odynophagia, Sore Throat, Throat Swelling, Tongue Swelling, Facial Pain, Neck Pain, Neck Mass, Other - Breasts Breasts: absent: As Per HPI, Change in Shape, Mass, Pain, Nipple Discharge, Nipple Inversion, Skin Changes, Swelling, Other - Cardiovascular Cardiovascular: absent: As Per HPI, Acrocyanosis, Chest Pain, Chest Pain at Rest, Chest Pain with Activity, Claudication, Diaphoresis, Dyspnea, Dyspnea on Exertion, Edema, Irregular Heart Rhythm, Pain Radiating to Arm/Neck/Jaw, Leg Edema, Leg Ulcers, Lightheadedness, Orthopnea, Palpitations, Paroxysmal Nocturnal Dyspnea, Pedal Edema, Radiating Pain, Rapid Heart Rate, Slow Heart Rate, Syncope, Other - Respiratory Respiratory: absent: As Per HPI, Cough, Dyspnea, Hemoptysis, Dyspnea on Exertion, Wheezing, Snoring, Stridor, Pain on Inspiration, Chest Congestion, Excessive Mucous Production, Change in Mucous Color, Pain with Coughing, Other - Gastrointestinal Gastrointestinal: absent: As Per HPI, Abdominal Pain, Belching, Bloating, Change in Bowel Habits, Change in Stool Character, Coffee Ground Emesis, Constipation, Cramping, Diarrhea, Dyspepsia, Dysphagia, Early Satiety, Excessive Flatus, Fecal Incontinence, Heartburn, Hematemesis, Hematochezia, Loose Stools, Melena, Nausea, Odynophagia, Temesmus, Vomiting, Other - Genitourinary Genitourinary: absent: As Per HPI, Change in Urinary Stream, Difficulty Urinating, Dysuria, Flank Pain, Hematuria, Pyuria, Nocturia, Urinary Incontinence, Urinary Frequency, Urinary Hesitance, Urinary Urgency, Voiding Freq/Small Amts, Freq UTI, Hx Renal/Bladder Calculi, Hx /Renal Surgery, Bladder Distension, Other - Reproductive: Female Reproductive:Female: Post Menopausal - Menstruation Menstruation: Post Menopausal - Musculoskeletal Musculoskeletal: Abnormal Gait, Limited Range of Motion - Integumentary Additional comments: Surgical side at the back of the head - Neurological Neurological: Abnormal Gait - Psychiatric Psychiatric: absent: As Per HPI, Abnormal Sleep Pattern, Anhedonia, Anxiety, Auditory Hallucinations, Behavioral Changes, Change in Appetite, Change in Libido, Confusion, Depression, Difficulty Concentrating, Hallucinations, Homicidal Ideation, Hopelessness, Irritability, Memory Loss, Mood Swings, Panic Attacks, Paranoia, Suicidal Ideation, Visual Hallucinations, Tactile Hallucinations, Other - Endocrine Endocrine: absent: As Per HPI, Change in Body Appearance, Change in Libido, Cold Intolorance, Deepening of Voice, Excessive Sweating, Fatigue, Flushing, Heat Intolorance, Increase in Ring/Shoe/Hat Size, Palpitations, Polydipsia, Polyphagia, Polyuria, Other - Hematologic/Lymphatic Hematologic: absent: As Per HPI, Easy Bleeding, Easy Bruising, Lymphadenopathy, Other Past Patient History - Past Social History Smoking Status: Never Smoked - CARDIAC Hx Hypertension: Yes - ENDOCRINE/METABOLIC Hx Hypothyroidism: Yes - MUSCULOSKELETAL/RHEUMATOLOGICAL Hx Rheumatoid Arthritis: Yes - PSYCHIATRIC Hx Substance Use: No Meds Allergies/Adverse Reactions: Allergies Allergy/AdvReac Type Severity Reaction Status Date / Time clarithromycin [From Biaxin] Allergy RASH Verified 03/18/18 15:05 Penicillins Allergy RASH Verified 03/18/18 14:57 Sulfa (Sulfonamide Allergy RASH Verified 03/18/18 14:57 Antibiotics) - Medications Medications: Current Medications Bisoprolol Fumarate (Zebeta) 2.5 mg PO Q24H [facility] Last Admin: 03/25/18 14:30 Dose: 2.5 mg Dexamethasone (Decadron) 2 mg PO Q6H [facility] Stop: 03/27/18 12:01 Last Admin: 03/26/18 05:21 Dose: 2 mg Dexamethasone (Decadron) 2 mg PO Q12H [facility] Famotidine (Pepcid) 20 mg PO BID [facility] Last Admin: 03/26/18 10:10 Dose: 20 mg Hydroxychloroquine Sulfate (Plaquenil) 200 mg PO DAILY [facility]; Protocol Last Admin: 03/26/18 10:10 Dose: 200 mg Ketorolac Tromethamine (Toradol) 15 mg IVP Q6 [facility] Stop: 03/27/18 00:01 Last Admin: 03/26/18 05:21 Dose: 15 mg Levetiracetam (Keppra) 500 mg PO BID [facility] Last Admin: 03/26/18 10:10 Dose: 500 mg Levothyroxine Sodium (Synthroid) 75 mcg PO DAILY@0630 [facility] Last Admin: 03/26/18 05:31 Dose: 75 mcg Metoclopramide HCl (Reglan) 10 mg IVP ACHS [facility] Last Admin: 03/26/18 10:10 Dose: 10 mg Physical Exam - Constitutional Appears: Chronically Ill - Head Exam Additional comments: surgical site at the back of the head - Eye Exam Eye Exam: absent: Conjunctival injection, EOMI, Normal appearance, Nystagmus, Periorbital swelling, Periorbital tenderness, PERRL, Scleral icterus Pupil Exam: absent: Fixed, Irregular, Miosis, Mydriatic, NORMAL ACCOMODATION, PERRL, Unequal - ENT Exam ENT Exam: absent: Mucous Membranes Dry, Mucous Membranes Moist, Normal Exam, Normal External Ear Exam, Normal Oropharynx, TM's Normal Bilaterally - Neck Exam Neck exam: Negative for: Full Rom, Lymphadenopathy, Meningismus, Normal Inspection, Tenderness, Thyromegaly - Respiratory Exam Respiratory Exam: absent: Accessory Muscle Use, Chest Wall Tenderness, Decreased Breath Sounds, Clear to Auscultation Bilateral, Prolonged Expiratory Phase, Rales, Rhonchi, Wheezes, Respiratory Distress, Stridor, NORMAL BREATHING PATTERN - Cardiovascular Exam Cardiovascular Exam: absent: Bradycardia, Tachycardia, Clicks, Diastolic murmur, Gallop, Irregular Rhythm, REGULAR RHYTHM, JVD, RRR, Rubs, +S1, +S2, +S4, Systolic Murmur - GI/Abdominal Exam GI & Abdominal Exam: absent: Bruit, Diminished Bowel Sounds, Distended, Firm, Guarding, Hernia, Hyperactive Bowel Sounds, Hypoactive Bowel Sounds, Mass, Normal Bowel Sounds, Organomegaly, Pulsatile Mass, Rebound, Rigid, Soft, Tenderness - Rectal Exam Rectal Exam: Deferred - Extremities Exam Extremities exam: Positive for: normal capillary refill, tenderness, pedal pulses present - Back Exam Back exam: NORMAL INSPECTION - Neurological Exam Neurological exam: Alert, Oriented x3 - Psychiatric Exam Psychiatric exam: Normal Affect, Normal Mood - Skin Skin Exam: Dry, Intact, Normal Color, Warm Results - Vital Signs Recent Vital Signs: Last Vital Signs Temp 98.7 F 03/26/18 08:14 Pulse 67 03/26/18 08:14 Resp 20 03/26/18 08:14 BP 142/85 03/26/18 08:14 Pulse Ox 97 03/26/18 08:14 - Labs Result Diagrams: 03/25/18 08:42 03/25/18 08:42 Assessment & Plan - Assessment and Plan (Free Text) Assessment: Palliative consult FULL CODE, No advance directive on chart, PPS 70% I reviewed Medical records, all diagnostic studies, examined interviewed patient in the bd. Patient is alert, oriented X 3 with affect that is appropriate. Speech clear. Ambulates with assistance due to right leg weakness 2nd to metastatic disease. All systems reviewed and are unremarkable except stated above. Patient denied acute symptoms. BP 142/885, HR 67, O2Sat 97% Meds: Synthroid, reglan, Kepra, Decadron, Toradol WBC 5.2, Hb 12.4.r Goals of care discussed. The daughter and and bed side. Per family, patient was told about her diagnosis by Doctor Rod. Patient and family are restless to find out the pathology results. They are aware that breast, as a primary site, is most likely due to previously abnormal mammogram and US as an outpatient.The daughter was talking most of the time and seemed to be very much involved in care. She works in [employer]. The family and the patient feel like being in shock as the diagnosis came in unexpectedly. The anticipatory anxiety mixed with denial is the primary mood of this family. The daughter is planing on looking for 2 nd opinion at [facility] She is also aware that her mother is being planned for BHARAT once pathology results are back. The patient agreed with planned BHARAT. Patient requested regular diet as opposed to pureed diet. I discussed this with Zainab MINE ENVIRONMENTAL ENGINEER. Doctor Byron made aware of this goals of care discussion. I also asked Nita the ANA to talk to family about IA preferences and ways to reach out to other institution to request 2nd opinion. Impression * Metastatic disease * Unsteady gait due to metastatic disease * Despair and anticipatory anxiety among the family and patient * Family is considering the 2nd opinion once they learn pathology results * Patient is requesting Regular diet Suggestion * Promote safety when OOb to bathroom * Reassure patient and family of care provided * Share pathology results with family and patient when available * BHARAT planing, family to chose place * Advance diet to regular. Palliative care will continue to offer support to patient and her family Advance care planing 55 min
--- NOTE | 2018-03-26 12:43 | CP.PCM.PN ---
Subjective - Date & Time of Evaluation Date of Evaluation: 03/26/18 Time of Evaluation: 12:40 - Subjective Subjective: Neurology Consultation Follow-Up Note: Mrs. Styles was seen and evaluated this morning. She is still complaining of persistent pain to her right leg, which she also had pre-op. She had a bone scan done last week, which showed mets to the right lesser trochanter and proximal right femoral shaft. Mrs. Styles still admits to blurry vision only when she has episodes of dizziness. She is continuing to ambulate with PT. Is in agreement with BHARAT once she is discharged form the hospital. Today she denies visual changes, dizziness, chest pain, shortness of breath, nausea/vomiting, paresthesias, weakness. No acute overnight events noted per nursing staff. Mrs. Styles is POD # 5 of a cerebellar mass excision. Family at bedside. Objective - Vital Signs/Intake and Output Vital Signs (last 24 hours): Temp Pulse Resp BP Pulse Ox 98.7 F 67 20 142/85 97 03/26/18 08:14 03/26/18 08:14 03/26/18 08:14 03/26/18 08:14 03/26/18 08:14 Intake and Output: 03/26/18 03/26/18 06:59 18:59 Intake Total 600 Balance 600 - Medications Medications: Current Medications Bisoprolol Fumarate (Zebeta) 2.5 mg PO Q24H [facility] Last Admin: 03/26/18 12:13 Dose: 2.5 mg Dexamethasone (Decadron) 2 mg PO Q6H [facility] Stop: 03/27/18 12:01 Last Admin: 03/26/18 12:14 Dose: 2 mg Dexamethasone (Decadron) 2 mg PO Q12H [facility] Famotidine (Pepcid) 20 mg PO BID [facility] Last Admin: 03/26/18 10:10 Dose: 20 mg Hydroxychloroquine Sulfate (Plaquenil) 200 mg PO DAILY [facility]; Protocol Last Admin: 03/26/18 10:10 Dose: 200 mg Ketorolac Tromethamine (Toradol) 15 mg IVP Q6 [facility] Stop: 03/27/18 00:01 Last Admin: 03/26/18 12:15 Dose: 15 mg Levetiracetam (Keppra) 500 mg PO BID [facility] Last Admin: 03/26/18 10:10 Dose: 500 mg Levothyroxine Sodium (Synthroid) 75 mcg PO DAILY@0630 [facility] Last Admin: 03/26/18 05:31 Dose: 75 mcg Metoclopramide HCl (Reglan) 10 mg IVP ACHS [facility] Last Admin: 03/26/18 12:14 Dose: 10 mg - Labs Labs: 03/25/18 08:42 03/25/18 08:42 PT 12.9 SECONDS (9.7-12.2) H 03/21/18 04:51 INR 1.2 03/21/18 04:51 APTT 32 SECONDS (21-34) 03/21/18 04:51 - Constitutional Appears: Well, Non-toxic, No Acute Distress - Head Exam Head Exam: ATRAUMATIC, NORMAL INSPECTION, NORMOCEPHALIC Additional comments: Surgical incision noted to occipital region; no signs of infection. - Eye Exam Eye Exam: EOMI, Normal appearance, PERRL Pupil Exam: NORMAL ACCOMODATION, PERRL - ENT Exam ENT Exam: Mucous Membranes Moist, Normal Exam - Neck Exam Neck Exam: Full ROM, Normal Inspection - Respiratory Exam Respiratory Exam: NORMAL BREATHING PATTERN - Neurological Exam Neurological Exam: Alert, Awake, CN II-XII Intact, Oriented x3 Neuro motor strength exam: Left Upper Extremity: 5, Right Upper Extremity: 5, Left Lower Extremity: 5, Right Lower Extremity: 5 (pt has difficulty raising right leg against resistance 2/2 pain, however, her stregnth is 5/5.) Additional comments: Reflexes brisk bilaterally; no pronator drift bilaterally; speech clear; no ataxia; sensation equal and intact. Gait not assessed due to patient's complaint of RLE pain at time of exam. - Psychiatric Exam Psychiatric exam: Normal Affect, Normal Mood - Skin Skin Exam: Normal Color Assessment and Plan (1) Cerebellar mass Assessment & Plan: -Mrs. Styles is doing very well post-procedure. -Pain management deferred to primary team. -Oncology management deferred to oncologist and primary team. -Continue PT/OT if patient tolerating. -Rehab recommended once discharged; outpatient versus BHARAT per family and patient's request. I discussed both with them and encouraged them to speak with Dr. Matthews and the social work professor regarding referrals. -No further neurologic intervention at this time, however, we will continue to follow while in the hospital per family and patient's request. -Please notify neuro team of any acute changes. Case discussed with Dr. Velasco. Thank you for allowing us to participate in the care of this patient. Status: Acute
[2018-03-26] MEDS ORDERED: Iodixanol 320 MG/ML 100 ML BOTTLE IV ONE (15:28)
--- NOTE | 2018-03-26 15:33 | CP.PCM.CON ---
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 She initially presented with right breast erythema and swelling in December 2017. She had a mammogram and ultrasound on February 01, 2018 which revealed skin thickening of the right breasta as well as diffuse edema and right axillary adenopathy. The largest lymph node measured 2.8 x 1.7 x 3.2cm. She was treated with course of antibiotics with Dr Cruz. She did not have a MRI of the breast or biopsy. Around that time, she was complaining of headaches and right leg pain. Due to worsening symptoms, she was sent to [facility] for further evaluation. A MRI of the brain on March 19, 2018 revealed a right cerebellar mass measuring 4.1 x 3.4 x 2.9cm. there was a right occipital lesion measuring 1.8 x 1.8 x 1.4cm as well as two left cerebellar lesions < 1cm, a left basal ganglia lesion measuring 1cm as wll as a right frontal lesion < 1cm and two foci in the left frontal region. A MRI of the lumbar spine revealed abnormal uptake in the sacrum. A CT of the chest, abdomen and pelvis revealed an irregular breast with skin thickening. There was right axillary adenopathy. There was an indeterminant lesion in the right hepatic region measuring 1.5cm. There was lucency in the femur. On March 21, 2018, she had a right craniotomy with excision of the dominant cerebellar mass for decompression. The pathology is pending. A bone scan on March 23, 2018 revealed lesions in the right proximal femur, lesser trochanter and right femoral shaft. We were asked to see the patient by Dr Frost for input regarding radiation to the brain and bone. Past Patient History - Past Social History Smoking Status: Never Smoked Alcohol: None Home Situation {Lives}: With Family - CARDIAC Hx Hypertension: Yes - ENDOCRINE/METABOLIC Hx Hypothyroidism: Yes - MUSCULOSKELETAL/RHEUMATOLOGICAL Hx Rheumatoid Arthritis: Yes - PSYCHIATRIC Hx Substance Use: No - SURGICAL HISTORY Other/Comment: right rotator cuff surgery in May 2017 Meds Allergies/Adverse Reactions: Allergies Allergy/AdvReac Type Severity Reaction Status Date / Time clarithromycin [From Biaxin] Allergy RASH Verified 03/18/18 15:05 Penicillins Allergy RASH Verified 03/18/18 14:57 Sulfa (Sulfonamide Allergy RASH Verified 03/18/18 14:57 Antibiotics) - Medications Medications: Current Medications Bisoprolol Fumarate (Zebeta) 2.5 mg PO Q24H [facility] Last Admin: 03/26/18 12:13 Dose: 2.5 mg Dexamethasone (Decadron) 2 mg PO Q6H [facility] Stop: 03/27/18 12:01 Last Admin: 03/26/18 12:14 Dose: 2 mg Dexamethasone (Decadron) 2 mg PO Q12H [facility] Famotidine (Pepcid) 20 mg PO BID [facility] Last Admin: 03/26/18 10:10 Dose: 20 mg Hydroxychloroquine Sulfate (Plaquenil) 200 mg PO DAILY [facility]; Protocol Last Admin: 03/26/18 10:10 Dose: 200 mg Ketorolac Tromethamine (Toradol) 15 mg IVP Q6 [facility] Stop: 03/27/18 00:01 Last Admin: 03/26/18 12:15 Dose: 15 mg Levetiracetam (Keppra) 500 mg PO BID [facility] Last Admin: 03/26/18 10:10 Dose: 500 mg Levothyroxine Sodium (Synthroid) 75 mcg PO DAILY@0630 [facility] Last Admin: 03/26/18 05:31 Dose: 75 mcg Metoclopramide HCl (Reglan) 10 mg IVP ACHS [facility] Last Admin: 03/26/18 12:14 Dose: 10 mg Physical Exam - Head Exam Additional comments: well healed craniotomy scar with kathleen along the cerebellar region - Eye Exam Eye Exam: EOMI - Respiratory Exam Respiratory Exam: NORMAL BREATHING PATTERN - Cardiovascular Exam Cardiovascular Exam: REGULAR RHYTHM - GI/Abdominal Exam GI & Abdominal Exam: Normal Bowel Sounds - Extremities Exam Extremities exam: Positive for: normal inspection Additional comments: tenderness in the right femoral shaft region - Back Exam Additional comments: slight tenderness in sacral region - Neurological Exam Neurological exam: CN II-XII Intact, Oriented x3 - Additional Findings Additional findings: examination of the right breast reveals edema and skin thickening around the ar eolar region Results - Vital Signs Recent Vital Signs: Last Vital Signs Temp 98.7 F 03/26/18 08:14 Pulse 67 03/26/18 08:14 Resp 20 03/26/18 08:14 BP 142/85 03/26/18 08:14 Pulse Ox 97 03/26/18 08:14 - Labs Result Diagrams: 03/25/18 08:42 03/25/18 08:42 Assessment & Plan - Assessment and Plan (Free Text) Assessment: Ms Styles is a 58 year old female with metastatic cancer to the brain and bone. She is status post craniotomy on Mar 21 with excision of the dominant mass. She has multiple brain lesions which will require whole brain radiation therapy. we will need to wait at least 2-3 weeks postop to allow for adequate healing and removal of the kathleen. Based on her bone scan and right leg pain, we would recommend a CT of the right lower extremity to evaluate of the degree of bone disease and cortical erosion which would affect her risk for pathologic fracture. Depending on the CT findings, she may require an ortho evaluation with possible stabilization if there is significant cortical erosion. We will follow up and finalize plan after the CT of the extremity. We would also shira mmend palliative radiation to the right femur as well.
--- NOTE | 2018-03-26 16:26 | CT ---
Date of service: 03/26/2018 PROCEDURE: CT of the right lower extremity with contrast HISTORY: right femoral mets r/o risk for path fracture COMPARISON: Comparison is made with the previous bone scan dated 03/23/2018 TECHNIQUE: Axial coronal and sagittal CT images of the right lower extremity were obtained from the level of right sacroiliac joint to the level of right tibial plateau after IV contrast administration. Contrast volume: 100 mL Visipaque 320 intravenously. Total exam DLP: 698.21 FINDINGS: There is focal bony destruction and lytic bony lesion noted at the inferior aspect of the right intertrochanteric region just distal to the greater trochanter likely represent osseous metastasis. There is also focal bony destruction and permeative bony changes noted at the proximal to mid right femoral shaft involving the lateral aspect of the femur measures approximately 3.5 centimeter in the longitudinal diameter also suspicious for osseous metastasis. There is enhancing soft tissue lesion at and adjacent to this bony lesion likely represent metastasis. No other bony lesion noted. No evidence of acute fracture. No evidence of dislocation at the right hip and right knee. IMPRESSION: Lytic bony lesion at the inferior aspect of the right intertrochanteric femur and focal destructive/permeative bony lesion suggestive of osseous metastasis. No evidence of acute fracture or dislocation
--- NOTE | 2018-03-27 00:46 | PN ---
DATE: 03/26/2018 SUBJECTIVE: The patient is seen today, 03/26/2018. She is still complaining of right femoral pain with difficulty ambulation. Headache is much better after the surgery. PHYSICAL EXAMINATION: VITAL SIGNS: Blood pressure 142/85, temperature 98.7, respiratory rate 20, and pulse 67. HEENT: Pupils equal, and reactive to light. Normal-appearing mucosa of the conjunctivae, oropharynx, and nasal membrane mucosa. NECK: Supple. No JVD. No carotid bruit. No lymph node. No thyromegaly. CHEST AND LUNGS: Bilateral symmetrical expansion. Good air exchange. No rales, no rhonchi. CARDIOVASCULAR SYSTEM: PMI not localized. S1, S2. No additional sounds. ABDOMEN: Normoactive bowel sounds. No tenderness. No organomegaly. No masses. EXTREMITIES: No cyanosis, no clubbing, no edema. CENTRAL NERVOUS SYSTEMS: Alert, awake, and oriented x2. No neurological deficit could be appreciated. ASSESSMENT: 1. Metastatic disease, likely breast in origin, awaiting the pathology report of the intracranial mass. Status post craniotomy with excision of posterior fossa metastatic mass. 2. Femoral metastasis with severe pain. 3. History of systemic lupus erythematosus. 4. Hypertension. 5. Hypothyroidism. PLAN: Follow up Oncology recommendations. We will do CAT scan with IV contrast of the femur, Orthopedic consult, will avoid weightbearing until cleared by Orthopedics. Discussed the patient's condition with her daughter at the bedside. Guarded prognosis. Derrick Matthews MD
[2018-03-27] MEDS: Levothyroxine 75 MCG TAB PO SCH (05:34)
--- NOTE | 2018-03-27 14:43 | CP.PCM.CON ---
History of Present Illness - History of Present Illness History of Present Illness: Orthopedic consult for Dr. Morrow 58 female admitted last week for headache and ongoing right thigh pain found to have brain and bone mets, pending pathology of intracranial mass, likely breast etiology. She is 6 days s/p craniotomy with excision of metastatic mass. She states she was having pain in her groin and radiating down her thigh for about 2 months which progressively got worse to the point she was having difficulty with ambulation due to the pain.Patient denies any history of injury or trauma. CT scan yesterday showing lytic lesion of right intertroch with cortical disruption . Review of Systems - Musculoskeletal Additional comments: Right hip pain. Pain with movement and ambulation Past Patient History - Past Social History Smoking Status: Never Smoked Alcohol: None Home Situation {Lives}: With Family - CARDIAC Hx Hypertension: Yes - ENDOCRINE/METABOLIC Hx Hypothyroidism: Yes - MUSCULOSKELETAL/RHEUMATOLOGICAL Hx Rheumatoid Arthritis: Yes - PSYCHIATRIC Hx Substance Use: No - SURGICAL HISTORY Other/Comment: right rotator cuff surgery in May 2017 Meds Allergies/Adverse Reactions: Allergies Allergy/AdvReac Type Severity Reaction Status Date / Time clarithromycin [From Biaxin] Allergy RASH Verified 03/18/18 15:05 Penicillins Allergy RASH Verified 03/18/18 14:57 Sulfa (Sulfonamide Allergy RASH Verified 03/18/18 14:57 Antibiotics) - Medications Medications: Current Medications Bisoprolol Fumarate (Zebeta) 2.5 mg PO Q24H [facility] Last Admin: 03/27/18 11:56 Dose: 2.5 mg Dexamethasone (Decadron) 2 mg PO Q12H [facility] Famotidine (Pepcid) 20 mg PO BID [facility] Last Admin: 03/27/18 09:14 Dose: 20 mg Fentanyl (Duragesic) 1 patch TD Q72H [facility] Last Admin: 03/27/18 12:02 Dose: 1 patch Hydroxychloroquine Sulfate (Plaquenil) 200 mg PO DAILY [facility]; Protocol Last Admin: 03/27/18 09:14 Dose: 200 mg Ketorolac Tromethamine (Toradol) 15 mg IVP Q6 PRN PRN Reason: Pain, moderate (4-7) Last Admin: 03/27/18 12:27 Dose: 15 mg Levetiracetam (Keppra) 500 mg PO BID [facility] Last Admin: 03/27/18 09:14 Dose: 500 mg Levothyroxine Sodium (Synthroid) 75 mcg PO DAILY@0630 [facility] Last Admin: 03/27/18 05:34 Dose: 75 mcg Metoclopramide HCl (Reglan) 10 mg IVP ACHS [facility] Last Admin: 03/27/18 11:56 Dose: 10 mg Physical Exam - Constitutional Appears: No Acute Distress - Extremities Exam Additional comments: On examination, patient is alert and awake. NAD. Responds to proper questioning. Examination of the right hip, she has mild tenderness to palpation over the proximal femur. She has moderate pain with passive internal/external of the hip. She has pain with active hip flexion. +AROM foot and ankle. Sensation is intact to light touch. Calf is soft and nontender. Grossly NVI distally Results - Vital Signs Recent Vital Signs: Last Vital Signs Temp 97.9 F 03/27/18 07:00 Pulse 73 03/27/18 07:00 Resp 20 03/27/18 07:00 BP 107/72 03/27/18 07:00 Pulse Ox 95 03/27/18 07:00 - Labs Result Diagrams: 03/25/18 08:42 03/25/18 08:42 Assessment & Plan (1) Lytic bone lesion of right femur Assessment and Plan: The treatment options were discussed with the patient, her daughter, and . At this time, surgical stabilization is recommend with ORIF of pathologic fracture of right femur with IM nail. The risks, benefits and alternatives were discussed including the risk of beginning radiation right away due to wound complications. Patient and her family state their understanding. Possibly OR tomorrow for ORIF of pathologic fracture of right femur with IM nail pending clearance for OR from neurosurg and medicine Discussed above with Dr. Morrow, agrees with above Status: Acute
--- NOTE | 2018-03-27 15:17 | CP.PCM.PN ---
Subjective - Date & Time of Evaluation Date of Evaluation: 03/27/18 Time of Evaluation: 14:00 - Subjective Subjective: Neurology Consultation Follow-Up Note: Mrs. Styles was seen and evaluated this afternoon with daughter and at bedside. Her only complaint today is of the persistent pain to her right leg. She had a bone scan done last week, which showed mets to the right lesser trochanter and proximal right femoral shaft, and had a CT scan done yesterday to evaluate the degree of mets to that area. PT is on hold for now. Today she is in generally good spirits and denies headache, visual changes, dizziness, chest pain, shortness of breath, nausea/vomiting, paresthesias, weakness. No acute overnight events noted per chart review and nursing staff. Mrs. Styles is POD # 6 of a cerebellar mass excision. Family at bedside Objective - Vital Signs/Intake and Output Vital Signs (last 24 hours): Temp Pulse Resp BP Pulse Ox 97.9 F 73 20 107/72 95 03/27/18 07:00 03/27/18 07:00 03/27/18 07:00 03/27/18 07:00 03/27/18 07:00 Intake and Output: 03/27/18 03/27/18 06:59 18:59 Intake Total 500 200 Balance 500 200 - Medications Medications: Current Medications Bisoprolol Fumarate (Zebeta) 2.5 mg PO Q24H [facility] Last Admin: 03/27/18 11:56 Dose: 2.5 mg Dexamethasone (Decadron) 2 mg PO Q12H [facility] Famotidine (Pepcid) 20 mg PO BID [facility] Last Admin: 03/27/18 09:14 Dose: 20 mg Fentanyl (Duragesic) 1 patch TD Q72H [facility] Last Admin: 03/27/18 12:02 Dose: 1 patch Hydroxychloroquine Sulfate (Plaquenil) 200 mg PO DAILY [facility]; Protocol Last Admin: 03/27/18 09:14 Dose: 200 mg Ketorolac Tromethamine (Toradol) 15 mg IVP Q6 PRN PRN Reason: Pain, moderate (4-7) Last Admin: 03/27/18 12:27 Dose: 15 mg Levetiracetam (Keppra) 500 mg PO BID [facility] Last Admin: 03/27/18 09:14 Dose: 500 mg Levothyroxine Sodium (Synthroid) 75 mcg PO DAILY@0630 [facility] Last Admin: 03/27/18 05:34 Dose: 75 mcg Metoclopramide HCl (Reglan) 10 mg IVP ACHS [facility] Last Admin: 03/27/18 11:56 Dose: 10 mg - Labs Labs: 03/25/18 08:42 03/25/18 08:42 PT 12.9 SECONDS (9.7-12.2) H 03/21/18 04:51 INR 1.2 03/21/18 04:51 APTT 32 SECONDS (21-34) 03/21/18 04:51 - Constitutional Appears: Well, Non-toxic, No Acute Distress - Head Exam Head Exam: ATRAUMATIC, NORMAL INSPECTION, NORMOCEPHALIC Additional comments: surgical incision wound noted to occipital area - Eye Exam Eye Exam: EOMI, Normal appearance, PERRL Pupil Exam: NORMAL ACCOMODATION, PERRL - ENT Exam ENT Exam: Mucous Membranes Moist, Normal Exam - Neck Exam Neck Exam: Full ROM, Normal Inspection - Respiratory Exam Respiratory Exam: NORMAL BREATHING PATTERN - Extremities Exam Extremities Exam: absent: Full ROM (decreased ROM to RLE 2/2 severe pain to the right thigh ), Pedal Edema - Neurological Exam Neurological Exam: Alert, Awake, CN II-XII Intact, Oriented x3. absent: Abnormal Gait Neuro motor strength exam: Left Upper Extremity: 5, Right Upper Extremity: 5, Left Lower Extremity: 5, Right Lower Extremity: 5 (dorsiflexion and extension 5/5; did not further evaluate stregnth to right leg 2/2 pt in severe pain with movement of RLE) Additional comments: Reflexes brisk bilaterally; no pronator drift bilaterally; speech clear; no ataxia; sensation equal and intact bilaterally. Gait not assessed due to patient's complaint of RLE pain at time of exam. - Psychiatric Exam Psychiatric exam: Normal Affect, Normal Mood - Skin Skin Exam: Normal Color Assessment and Plan (1) Cerebellar mass Assessment & Plan: -Mrs. Styles is doing very well post-procedure neurologic hendrickson. -Pain management deferred to primary team. -Oncology management deferred to oncologist and primary team. -Ortho consulted today for a lytic bone lesion---possible ORIF tomorrow if ne urosurgery and primary clears patient. No neurology opposition to ORIF if patient and family agrees. -Continue OT. -PT on hold for now 2/2 lytic bone lesion. -Rehab recommended once discharged. -No further neurologic intervention at this time, however, we will continue to follow while in the hospital. -Please notify neuro team of any acute changes. Case discussed with Dr. Velasco. Thank you for allowing us to participate in the care of this patient. Status: Acute (2) Lytic bone lesion of right femur Assessment & Plan: Imaging: CT Scan RLE (03/26/18): Lytic bony lesion at the inferior aspect of the right intertrochanteric femur and focal destructive/permeative bony lesion suggestive of osseous metastasis. No evidence of acute fracture or dislocation -Mrs. Styles's complaint of right thigh pain consistent with the bone mets and lytic bone lesion. -Pain management deferred to primary team. -Oncology management deferred to oncologist and primary team. -Ortho consulted today for a lytic bone lesion---possible ORIF tomorrow if neurosurgery and primary clears patient. No neurology opposition to ORIF if patient and family agrees. -Continue OT. -PT on hold for now 2/2 lytic bone lesion. -Rehab recommended once discharged. Status: Acute
--- NOTE | 2018-03-27 15:37 | RAD ---
Date of service: 03/27/2018 PROCEDURE: HISTORY: lesion COMPARISON: CT right lower extremity 03/26/2018; bone scan report 03/23/2018; CT chest abdomen and pelvis report 03/20/2018 TECHNIQUE: AP pelvis and frog's leg view. FINDINGS: The cortical permeative destructive appearing lesions involving the right lesser trochanter are not clearly evident on this exam. The more distal mainly lateral proximal right femoral shaft cortical permeated of destructive changes are perceived radiograph. Mild-moderate distended bladder. IMPRESSION: Limited evaluation of the right sacral wing (due to overlying overseas inferred) bowel gas Right femur findings as referenced above compatible with cortical metastatic lesions. Correlation recommended with any known cancer. No pathological fracture appreciated now. Close follow-up recommended.
--- NOTE | 2018-03-27 15:41 | RAD ---
Date of service: 03/27/2018 PROCEDURE: HISTORY: lytic lesion COMPARISON: TECHNIQUE: FINDINGS: The cortical permeative destructive appearing lesion involving the right lesser trochanter is not clearly evident on this exam. The additional destructive permeative lesion affecting the lateral proximal right femoral shaft cortex is noted. No gross pathological fracture noted at this time. However close follow-up for this potential complication needs to be considered. IMPRESSION: Cortical permeative lesions of the right femur compatible with cortical osseous metastases. Correlate with any known primary cancer status No gross pathological fracture noted at this time. However close follow-up for this potential complication is recommended .
--- NOTE | 2018-03-27 16:29 | PN ---
DATE: 03/27/2018 REASON FOR FOLLOWUP: Metastatic cancer with brain metastasis and lytic lesions with breast thickening in the right breast. SUBJECTIVE: The patient is status post resection of the cerebellar mass for decompression. Feels well with stitches now. OBJECTIVE: VITAL SIGNS: Temperature of 97.2, blood pressure is 142/85, pulse is 67, respirations 20. HEENT: PERRLA. No scleral icterus is seen. NECK: Supple. CHEST: Bilateral air entry fair. CARDIOVASCULAR SYSTEM: S1, S2. Regular rate and rhythm. BREASTS: The right breast is edematous and thickened around the areolar region. EXTREMITIES: No edema. LABORATORY DATA: Labs show white count of 5.4, hemoglobin of 12.4, platelets of 300, BUN of 14, creatinine of 0.5. ASSESSMENT AND PLAN: A 58-year-old female with metastatic cancer to the brain and the bone status post craniotomy, excision of the dominant mass now has multiple brain lesions, which will require whole brain radiation therapy. Will need to wait 2 to 3 weeks postoperative to allow for adequate healing and removal of the stitches. Also, patient had a CAT scan of her right femur, which shows a lytic lesion corroding the cortex of the bone, possible risk for pathologic fracture, hence Dr. Morrow request for consult has been placed for orthopedic to evaluate. Also, pathology of the brain mass is still pending. Case was discussed with the chief of pathology, who states that pathology has been sent out and at this time primary is not identifiable. Case was discussed with the patient's daughter and in extensive detail. About one hour was spent with them explaining the prognosis, diagnosis, multiple treatment choices, the next plan of action. All questions and concerns were appropriately answered. They are requesting a second opinion, which has also been offered to them at whichever institute they would like to go. We will send all the records over to them. Case was discussed with them in extensive detail. Case was discussed with . Case was discussed with Dr. Hampton. Thank you for the consult. We will follow the patient. Chrissy Frost MD [facility] # [id number]
[2018-03-27 19:49] LABS: BASO % 0.1 % (0.0-2.0); EOS % 0.3 % (0.0-4.0); HEMOGLOBIN 13.5 g/dL (11.0-16.0); LYMPH # 1.9 K/uL (1.0-4.3); MEAN CORPUSCULAR HEMOGLOBIN 30.2 pg (27.0-31.0); MEAN CORPUSCULAR HGB CONC 34.3 g/dL (33.0-37.0); MEAN PLATELET VOLUME 8.1 fL (7.2-11.7); MONO # 0.8 K/uL (0.0-0.8); MONO % 7.5 % (0.0-10.0); NEUT # 7.9 K/uL (1.8-7.0); NEUT % 74.1 % (50.0-75.0); RBC 4.47 Mil/uL (3.80-5.20)
[2018-03-27 19:52] LABS: WHITE BLOOD COUNT 10.7 K/uL (4.8-10.8)
[2018-03-27 20:02] LABS: ALB/GLOB RATIO 1.2 (1.0-2.1); ALBUMIN 3.7 g/dL (3.5-5.0); ALT/SGPT 33 U/L (9-52); AST/SGOT 17 U/L (14-36); BLOOD UREA NITROGEN 19 mg/dL (7-17); CALCIUM 8.6 mg/dl (8.6-10.4); GFR NON-AFRICAN AMERICAN > 60
--- NOTE | 2018-03-28 02:31 | PN ---
DATE: 03/27/2018 DAILY PROGRESS NOTE SUBJECTIVE: The patient is seen today, 03/27/2018. She is not in any cardiopulmonary distress. PHYSICAL EXAMINATION: VITAL SIGNS: The patient's blood pressure is 109/68, temperature 98.4, respiratory rate 20 and pulse 68. HEENT: Pupils equal, reactive to light. Normal-appearing mucosa of the conjunctivae, oropharynx and nasal membrane mucosa. NECK: Supple. No JVD. No carotid bruit. No lymph node. No thyromegaly. CHEST AND LUNGS: Bilateral symmetrical expansion. Good air exchange. No rales. No rhonchi. CARDIOVASCULAR SYSTEM: PMI not localized. S1 and S2. No additional sounds. ABDOMEN: Normoactive bowel sounds. No tenderness. No organomegaly. No masses. EXTREMITIES: No cyanosis, no clubbing, no edema. CENTRAL NERVOUS SYSTEM: Alert, awake, oriented x2. No neurological deficit could be appreciated. ASSESSMENT: 1. Metastatic disease, status post craniotomy. Primary is likely breast, pathology report still pending. 2. Metastatic femoral disease. Will need orthopedic stabilization surgery for the left femur. 3. Hypothyroidism. 4. History of systemic lupus erythematosus. PLAN: Discussed with Dr. Morrow who advised to take the patient for OR tomorrow for right femur stabilization surgery. Continue pain management as needed. Discussed the patient's condition with Dr. Frost. Derrick Matthews MD
[2018-03-28] MEDS: Levothyroxine 75 MCG TAB PO SCH (06:02)
[2018-03-28] MEDS ORDERED: Lactated Ringer's 1,000 ML IV SCH (07:00)
[2018-03-28 08:36] LABS: HEMOGLOBIN 12.1 g/dL (11.0-16.0); MEAN CELL VOLUME 88.1 fL (81.0-99.0); MEAN CORPUSCULAR HEMOGLOBIN 30.5 pg (27.0-31.0); MEAN CORPUSCULAR HGB CONC 34.7 g/dL (33.0-37.0); MEAN PLATELET VOLUME 8.2 fL (7.2-11.7); RBC 3.95 Mil/uL (3.80-5.20); RED CELL DISTRIBUTION WIDTH 13.1 % (11.5-14.5)
[2018-03-28 08:53] LABS: BLOOD UREA NITROGEN 17 mg/dL (7-17); CALCIUM 8.4 mg/dl (8.6-10.4); GFR NON-AFRICAN AMERICAN > 60
--- NOTE | 2018-03-28 10:08 | CP.PCM.PN ---
Subjective - Date & Time of Evaluation Date of Evaluation: 03/28/18 Time of Evaluation: 10:00 - Subjective Subjective: Ms Styles has metastatic cancer. She will be getting surgery on her right femur today. She will require palliative radiation therapy to the right hip/femur at least 4 weeks postop to the leg. She will also need whole brain radiation at least 2-3 weeks from now given that her surgery was on Mar 21, and she has multiple cerebral metastases that are still present with edema. We will coordinate her follow up with us with her daughter. Objective - Vital Signs/Intake and Output Vital Signs (last 24 hours): Temp Pulse Resp BP Pulse Ox 98.7 F 64 20 135/83 98 03/28/18 08:08 03/28/18 08:08 03/28/18 08:08 03/28/18 08:08 03/28/18 08:08 Intake and Output: 03/28/18 03/28/18 06:59 18:59 Intake Total 600 0 Balance 600 0 - Medications Medications: Current Medications Bisoprolol Fumarate (Zebeta) 2.5 mg PO Q24H [facility] Last Admin: 03/27/18 11:56 Dose: 2.5 mg Dexamethasone (Decadron) 2 mg PO Q12H [facility] Last Admin: 03/28/18 06:01 Dose: 2 mg Famotidine (Pepcid) 20 mg PO BID [facility] Last Admin: 03/27/18 18:35 Dose: 20 mg Fentanyl (Duragesic) 1 patch TD Q72H [facility] Last Admin: 03/27/18 12:02 Dose: 1 patch Hydroxychloroquine Sulfate (Plaquenil) 200 mg PO DAILY [facility]; Protocol Last Admin: 03/27/18 09:14 Dose: 200 mg Lactated Ringer's (Lactated Ringer's) 1,000 mls @ 100 mls/hr IV .Q10H [facility] Last Admin: 03/28/18 07:00 Dose: 100 mls/hr Ketorolac Tromethamine (Toradol) 15 mg IVP Q6 PRN PRN Reason: Pain, moderate (4-7) Last Admin: 03/28/18 06:08 Dose: 15 mg Levetiracetam (Keppra) 500 mg PO BID [facility] Last Admin: 03/27/18 18:35 Dose: 500 mg Levothyroxine Sodium (Synthroid) 75 mcg PO DAILY@0630 [facility] Last Admin: 03/28/18 06:02 Dose: 75 mcg Metoclopramide HCl (Reglan) 10 mg IVP ACHS [facility] Last Admin: 03/28/18 07:31 Dose: 10 mg - Labs Labs: 03/28/18 08:29 03/28/18 08:29 PT 12.9 SECONDS (9.7-12.2) H 03/21/18 04:51 INR 1.2 03/21/18 04:51 APTT 32 SECONDS (21-34) 03/21/18 04:51
--- NOTE | 2018-03-28 11:24 | CP.PCM.PN ---
Subjective - Date & Time of Evaluation Date of Evaluation: 03/28/18 Time of Evaluation: 11:24 - Subjective Subjective: Neurology Consultation Follow-Up Note: Mrs. Styles was seen and evaluated this morning with son and at bedside. She continues to complain of persistent pain to her right leg. She also still complains of dizziness intermittently. Today Mrs. Styles is in generally good spirits. She currently denies headache, visual changes, dizziness, chest pain, shortness of breath, nausea/vomiting, paresthesias, weakness. No acute overnight events noted per chart review and nursing staff. Mrs. Styles was evaluated by orthopedics yesterday, and she will be going to the OR today for ORIF of pathologic fracture of right femur with IM nail. She had a bone scan done last week, which showed mets to the right lesser trochanter and proximal right femoral shaft, and had a CT scan done on Monday to evaluate the degree of mets to that area. PT is still on hold for lower extremity strengthening. Mrs. Styles is POD # 7 of a cerebellar mass excision. Objective - Vital Signs/Intake and Output Vital Signs (last 24 hours): Temp Pulse Resp BP Pulse Ox 98.7 F 64 20 135/83 98 03/28/18 08:08 03/28/18 08:08 03/28/18 08:08 03/28/18 08:08 03/28/18 08:08 Intake and Output: 03/28/18 03/28/18 06:59 18:59 Intake Total 600 0 Balance 600 0 - Medications Medications: Current Medications Bisoprolol Fumarate (Zebeta) 2.5 mg PO Q24H [facility] Last Admin: 03/27/18 11:56 Dose: 2.5 mg Dexamethasone (Decadron) 2 mg PO Q12H [facility] Last Admin: 03/28/18 06:01 Dose: 2 mg Famotidine (Pepcid) 20 mg PO BID [facility] Last Admin: 03/28/18 10:33 Dose: Not Given Fentanyl (Duragesic) 1 patch TD Q72H [facility] Last Admin: 03/27/18 12:02 Dose: 1 patch Hydroxychloroquine Sulfate (Plaquenil) 200 mg PO DAILY [facility]; Protocol Last Admin: 03/28/18 10:33 Dose: Not Given Lactated Ringer's (Lactated Ringer's) 1,000 mls @ 100 mls/hr IV .Q10H [facility] Last Admin: 03/28/18 07:00 Dose: 100 mls/hr Ketorolac Tromethamine (Toradol) 15 mg IVP Q6 PRN PRN Reason: Pain, moderate (4-7) Last Admin: 03/28/18 06:08 Dose: 15 mg Levetiracetam (Keppra) 500 mg PO BID [facility] Last Admin: 03/28/18 10:32 Dose: Not Given Levothyroxine Sodium (Synthroid) 75 mcg PO DAILY@0630 [facility] Last Admin: 03/28/18 06:02 Dose: 75 mcg Metoclopramide HCl (Reglan) 10 mg IVP ACHS [facility] Last Admin: 03/28/18 07:31 Dose: 10 mg - Labs Labs: 03/28/18 08:29 03/28/18 08:29 PT 12.9 SECONDS (9.7-12.2) H 03/21/18 04:51 INR 1.2 03/21/18 04:51 APTT 32 SECONDS (21-34) 03/21/18 04:51 - Constitutional Appears: Well, Non-toxic, No Acute Distress - Head Exam Head Exam: ATRAUMATIC, NORMAL INSPECTION, NORMOCEPHALIC Additional comments: healing surgical incision noted to occipital area - Eye Exam Eye Exam: EOMI, Normal appearance, PERRL Pupil Exam: NORMAL ACCOMODATION, PERRL - ENT Exam ENT Exam: Mucous Membranes Moist, Normal Exam - Neck Exam Neck Exam: Full ROM - Respiratory Exam Respiratory Exam: NORMAL BREATHING PATTERN - Extremities Exam Extremities Exam: absent: Calf Tenderness, Full ROM, Pedal Edema Additional comments: decreased ROM to RLE 2/2 severe pain to the right upper leg - Neurological Exam Neurological Exam: Abnormal Gait (2/2 severe pain to RLE), Alert, Awake, Oriented x3 Neuro motor strength exam: Left Upper Extremity: 5, Right Upper Extremity: 5, Left Lower Extremity: 5, Right Lower Extremity: 5 Additional comments: Reflexes brisk bilaterally; no pronator drift bilaterally; speech clear; no ataxia; sensation intact to BUE and LLE however is slightly diminished to the RLE (patient admtis she had this prior but it is intermittent). Gait not assessed due to patient's complaint of RLE pain at time of exam. - Psychiatric Exam Psychiatric exam: Normal Affect, Normal Mood - Skin Skin Exam: Normal Color Assessment and Plan (1) Cerebellar mass Assessment & Plan: -Mrs. Styles is doing very well post-procedure neurologic hendrickson. -POD #7: cerebellar mass excision by neurosurgery. -Pain management deferred to primary team. -Oncology management deferred to oncologist and primary team. -PT on hold for now for lower extremity exercises 2/2 lytic bone lesion. -Rehab recommended once discharged. -No further neurologic intervention at this time, however, we will continue to follow while in the hospital. -Please notify neuro team of any acute changes. Case discussed with Dr. Velasco. Status: Acute (2) Lytic bone lesion of right femur Assessment & Plan: Imaging: CT Scan RLE (03/26/18): Lytic bony lesion at the inferior aspect of the right intertrochanteric femur and focal destructive/permeative bony lesion suggestive of osseous metastasis. No evidence of acute fracture or dislocation. -Mrs. Styles's complaint of right thigh pain consistent with the bone mets and lytic bone lesion. -She is however doing very well post-cerebellar mass excision neurologic hendrickson. -Pain management deferred to primary team. -Oncology management deferred to oncologist and primary team. -Ortho consulted for a lytic bone lesion---NPO for ORIF today. -PT/OT ordered for upper extremity exercises; patient has a recent h/o right rotator cuff surgery and her/family requesting PT/OT for that. -PT on hold for now for lower extremity exercises 2/2 lytic bone lesion. -Recommend SCD for DVT prophylaxis---ordered on 03/20/18, however per patient and family they have not been on. She is a high risk of developing DVT 2/2 increased bedrest and malignancy. -Rehab recommended once discharged. -No further neurologic intervention at this time, however, we will continue to follow while in the hospital. -Please notify neuro team of any acute changes. Case discussed with Dr. Velasco. Status: Acute
[2018-03-28 11:40] LABS: INR 1.1; PROTHROMBIN TIME 12.4 SECONDS (9.7-12.2)
[2018-03-28] MEDS ORDERED: diaZEpam 10 mg/2 ml Inj IVP ONE (13:45)
[2018-03-28 13:57] LABS: HEMOGLOBIN 13.1 g/dL (11.0-16.0)
[2018-03-28] MEDS ORDERED: Propofol 10 mg/ml Inj (20 ML) ONE (15:16)
[2018-03-28] MEDS ORDERED: Sodium Chloride 0.9% 0 ML IV ONE (15:45)
[2018-03-28] MEDS ORDERED: Sodium Chloride 0.9% 20 ML IV ONE (15:58)
[2018-03-28] MEDS ORDERED: Rocuronium 10 mg/ml (5 ml) ONE (16:00)
[2018-03-28] MEDS ORDERED: HYDROmorphone 0.5 mg/0.5 ml ISec IVP PRN (16:44)
[2018-03-28] MEDS ORDERED: Rocuronium 10 mg/ml (10 ml) ONE (17:24)
[2018-03-28] MEDS ORDERED: Neostigmine Methylsulfate 3mg/3ml Syringe IV ONE (18:00)
[2018-03-28] MEDS: HYDROmorphone 0.5 mg/0.5 ml ISec IVP PRN ×2 (18:48→19:28)
[2018-03-28] MEDS: Clindamycin 600mg/50ml NS 600 MG/50 ML BAG IVPB SCH (22:37)
[2018-03-29] MEDS ORDERED: Lactated Ringer's 1,000 ML IV SCH (00:56)
[2018-03-29] MEDS: oxyCODONE 10 mg Immediate Release Tab PO PRN ×4 (01:41→18:34)
--- NOTE | 2018-03-29 06:10 | OP ---
PROCEDURE DATE: 03/28/2018 PREOPERATIVE DIAGNOSIS: Right femur pathologic fracture. POSTOPERATIVE DIAGNOSIS: Right femur pathologic fracture. PROCEDURE: Open reduction internal fixation of right femur fracture with intramedullary nail. SURGEON: Wilman Morrow MD. Dr. Morrow was assisted by Andree Pleitez and Lauryn Tao, physician assistants. Both physician assistants were scrubbed and present throughout the entire case and assisted in patient positioning and wound closure. ANESTHESIA: General. COMPLICATIONS: None. ESTIMATED BLOOD LOSS: 100 mL. IMPLANT: Biomet cephalomedullary lock nail. INDICATION FOR PROCEDURE: This is a 58-year-old female who was admitted for right thigh pain who had complaints of right thigh pain for the last two months. The patient was recently diagnosed with masses in her brain as well as breast, presumably being worked up and evaluated for metastatic breast CA. On bone scan, she was also noted to find lesions in the right femur and sacrum. The patient clinically was unable to ambulate and had pain with passive or active range of motion of the right lower extremity. Radiographic evaluation will look like lesion in the proximal third of the mid shaft of the femur and also in the subtrochanteric region of the right femur "disruption was noted," and this was confirmed by CAT scan. Recommendations were for open reduction and internal fixation of the fracture. The risk and benefits were discussed with the patient including nonunion, malunion, hardware failure and infection, and informed consent was obtained. DESCRIPTION OF PROCEDURE: After the surgical site was finally verified in the perioperative holding area, the patient was taken to the operating room and placed supine on the fracture table. After initiation of general anesthesia, the patient received clindamycin IV. The patient's right lower extremity was positioned in the traction boot. The left lower extremity was padded and gently extended away from the operative field. At this point, C-arm images were taken with AP and lateral planes, which showed displacement on the lateral view. At this point, the right lower extremity was prepped and draped in usual sterile fashion. The bony landmarks were identified about the proximal femur and a proximal 4 cm incision was made proximal to the tip of the toe. Soft tissues dissected bluntly down to the tip of the toe. Guide pin for entry hole was placed at the tip of the toe. This was confirmed using the image intensifier about the AP and lateral planes. Satisfied, the guide pin was inserted into the proximal aspect of the femur. Next, a step drill used to drill our entry hole. At this point, the guide pin was removed and a guide wire was inserted into the proximal fragment. At this point, a reduction was performed and a guidewire was then inserted across the fracture site into the distal fragment. This was confirmed using a image intensifier in both the AP and lateral plane. Satisfied, the majority now was then reamed sequentially to 30 mm. The length of our nail was then measured and the appropriate nail was inserted over the guidewire, the appropriate depth. Reduction as well as position of the nail was confirmed using the image intensifier, satisfied to the a small incision on the lateral aspect of the proximal thigh, the ____ screw was then placed in the lateral cortex. The guidewire for a screw was then drilled in a roughly center position of the femoral head and this was confirmed using the image intensifier. The length of the screw was measured, and using a drill, the hole for a screw was drilled to the appropriate depth. At this point the screw was then inserted over the guidewire and this was again confirmed using the C arm. Satisfied, the screw was then locked to the nail by screwing down on the set screw on the proximal aspect of the nail. Finally, the nail was locked statically through to fit through the two holes on the distal aspect of the nail. Once this was done, the hardware ____ was removed. Final x-rays were taken confirming good fracture reduction as well as good hardware placement. At this point, all the incisions were irrigated with antibiotic saline solution and closed in layer fashion. Sterile dressing was applied. The patient was awakened from anesthesia and taken to the recovery room in stable condition. Wilman Morrow MD
[2018-03-29] MEDS: Clindamycin 600mg/50ml NS 600 MG/50 ML BAG IVPB SCH (06:25)
[2018-03-29] MEDS: Levothyroxine 75 MCG TAB PO SCH (06:26)
[2018-03-29] MEDS: Lactated Ringer's 1,000 ML IV SCH ×4 (07:17→21:47)
[2018-03-29 07:59] LABS: MEAN CELL VOLUME 88.5 fL (81.0-99.0); MEAN CORPUSCULAR HEMOGLOBIN 30.7 pg (27.0-31.0); MEAN CORPUSCULAR HGB CONC 34.7 g/dL (33.0-37.0); MEAN PLATELET VOLUME 7.7 fL (7.2-11.7); RBC 3.09 Mil/uL (3.80-5.20); RED CELL DISTRIBUTION WIDTH 13.1 % (11.5-14.5); WHITE BLOOD COUNT 8.2 K/uL (4.8-10.8)
[2018-03-29 08:17] LABS: BLOOD UREA NITROGEN 15 mg/dL (7-17); CALCIUM 7.3 mg/dl (8.6-10.4); GFR NON-AFRICAN AMERICAN > 60
[2018-03-29 08:25] LABS: HEMOGLOBIN 9.5 g/dL (11.0-16.0)
--- NOTE | 2018-03-29 08:39 | RAD ---
Date of service: 03/28/2018 PROCEDURE: HISTORY: s/o ORIF right femur fx include hip and femur.PACU COMPARISON: 03/27/2018 right hip x-ray. CT 03/26/2018 right lower extremity TECHNIQUE: AP pelvis and frog's leg view. FINDINGS: Interval placement of right orthopedic hardware dynamic compression screw and right femoral intramedullary manuel to stabilize/protect the destructive/inferred metastatic lesion affecting the right femoral diaphyseal cortex Hardware appears appropriately line. Distal femoral tip not visually included. On the postop view there is a complete apparent fracture through the destructive lesion noted. And anterior hyperdensity is inferred as the expansile intra cortical destructive lesion that had been present previously. IMPRESSION: Interval orthopedic intervention as above.Other findings as above.
--- NOTE | 2018-03-29 08:47 | RAD ---
Date of service: 03/28/2018 HISTORY: s/o ORIF right femur fx include hip and femur.PACU COMPARISON: 03/27/2018 right hip x-ray. CT 03/26/2018 right lower extremity TECHNIQUE: AP pelvis and frog's leg view. Additional imaging of the distal femur included on this exam FINDINGS: Interval placement of right orthopedic hardware dynamic compression screw and right femoral intramedullary manuel to stabilize/protect the destructive/inferred metastatic lesion affecting the right femoral diaphyseal cortex. Two distal horizontal screws transfix stabilize the distal intramedullary manuel. Hardware appears appropriately line. Distal femoral tip now visually included. On the postop view there is a complete apparent fracture through the destructive lesion noted. And anterior hyperdensity is inferred as the expansile intra cortical destructive lesion that had been present previously. IMPRESSION: Interval orthopedic intervention as above.Other findings as above.
--- NOTE | 2018-03-29 10:42 | CP.PCM.PN ---
Subjective - Date & Time of Evaluation Date of Evaluation: 03/29/18 Time of Evaluation: 10:42 - Subjective Subjective: Neurology Consultation Follow-Up Note: Mrs. Styles was seen and evaluated this morning with at bedside. She is POD #1 ORIF of pathologic fracture of right femur with IM nail. She continues to complain of pain to her right leg. She also still complains of dizziness intermittently. Today she also complains of feeling tired and states she did not sleep well last night. She currently denies headache, visual changes, dizziness, chest pain, shortness of breath, nausea/vomiting, paresthesias. Per nursing staff her SBP has been lower than usual since late last night. Mrs. Styles is POD # 8 of a cerebellar mass excision. Objective - Vital Signs/Intake and Output Vital Signs (last 24 hours): Temp Pulse Resp BP Pulse Ox 98.3 F 88 20 90/56 L 95 03/29/18 07:35 03/29/18 07:35 03/29/18 07:35 03/29/18 07:35 03/29/18 07:35 Intake and Output: 03/29/18 03/29/18 06:59 18:59 Output Total 850 Balance -850 - Medications Medications: Current Medications Acetaminophen (Tylenol 325mg Tab) 650 mg PO Q6 [facility] Last Admin: 03/29/18 06:27 Dose: Not Given Bisoprolol Fumarate (Zebeta) 2.5 mg PO Q24H [facility] Last Admin: 03/28/18 11:37 Dose: 2.5 mg Dexamethasone (Decadron) 2 mg PO Q12H [facility] Last Admin: 03/29/18 06:26 Dose: 2 mg Docusate Sodium (Colace) 100 mg PO BID [facility] Famotidine (Pepcid) 20 mg PO BID [facility] Last Admin: 03/28/18 10:33 Dose: Not Given Fentanyl (Duragesic) 1 patch TD Q72H [facility] Last Admin: 03/27/18 12:02 Dose: 1 patch Hydromorphone HCl (Dilaudid) 0.5 mg IVP Q4H PRN PRN Reason: Pain, moderate (4-7) Hydroxychloroquine Sulfate (Plaquenil) 200 mg PO DAILY [facility]; Protocol Last Admin: 03/28/18 10:33 Dose: Not Given Lactated Ringer's (Lactated Ringer's) 1,000 mls @ 150 mls/hr IV .Q6H40M [facility] Last Admin: 03/29/18 07:17 Dose: 150 mls/hr Levetiracetam (Keppra) 500 mg PO BID [facility] Last Admin: 03/28/18 10:32 Dose: Not Given Levothyroxine Sodium (Synthroid) 75 mcg PO DAILY@0630 [facility] Last Admin: 03/29/18 06:26 Dose: 75 mcg Metoclopramide HCl (Reglan) 10 mg IVP ACHS [facility] Last Admin: 03/28/18 22:38 Dose: 10 mg Oxycodone HCl (Oxycodone Immediate Release Tab) 10 mg PO Q4H PRN PRN Reason: Pain, moderate (4-7) Last Admin: 03/29/18 10:34 Dose: 10 mg - Labs Labs: 03/29/18 07:51 03/29/18 07:51 PT 12.4 SECONDS (9.7-12.2) H 03/28/18 11:22 INR 1.1 03/28/18 11:22 APTT 26 SECONDS (21-34) 03/28/18 11:22 - Constitutional Appears: Well, Non-toxic, No Acute Distress (does appear tired today) - Head Exam Head Exam: ATRAUMATIC, NORMAL INSPECTION, NORMOCEPHALIC (surgical incision wound noted to occipital area; healing) - Eye Exam Eye Exam: EOMI, Normal appearance, PERRL Pupil Exam: NORMAL ACCOMODATION, PERRL - ENT Exam ENT Exam: Mucous Membranes Moist - Neck Exam Neck Exam: Full ROM - Respiratory Exam Respiratory Exam: NORMAL BREATHING PATTERN - Cardiovascular Exam Cardiovascular Exam: REGULAR RHYTHM - Extremities Exam Extremities Exam: absent: Full ROM (decreased ROM to RLE 2/2 surgical procedure and pain), Pedal Edema Additional comments: surgical site to right upper leg noted covered with dressing. - Neurological Exam Neurological Exam: Alert, Awake, Oriented x3 Neuro motor strength exam: Left Upper Extremity: 5, Right Upper Extremity: 5, Left Lower Extremity: 5, Right Lower Extremity: 4 (pt c/o severe pain with movement ) Additional comments: Reflexes brisk bilaterally; no pronator drift bilaterally; speech clear; no solo oly; sensation intact to BUE and BLE (resolution today of diminished sensation to the RLE; patient admtis she had this prior but it is intermittent). Gait not assessed due to patient's condition and no clearance to start PT yet. - Psychiatric Exam Psychiatric exam: Normal Affect, Normal Mood - Skin Skin Exam: Normal Color Assessment and Plan (1) Cerebellar mass Assessment & Plan: -Mrs. Styles is doing very well post-procedure neurologic hendrickson. -POD #8: cerebellar mass excision by neurosurgery. -Pain management deferred to primary team. -Oncology management deferred to oncologist and primary team. -PT on hold for now for lower extremity exercises 2/2 lytic bone lesion. -Rehab recommended once discharged. -No further neurologic intervention at this time, however, we will continue to follow while in the hospital. -Please notify neuro team of any acute changes. Case discussed with Dr. Velasco. Status: Acute (2) Lytic bone lesion of right femur Assessment & Plan: Imaging: CT Scan RLE (03/26/18): Lytic bony lesion at the inferior aspect of the right intertrochanteric femur and focal destructive/permeative bony lesion suggestive of osseous metastasis. No evidence of acute fracture or dislocation. -Mrs. Styles's complaint of right thigh pain consistent with the bone mets and lytic bone lesion. -She is however doing very well post-cerebellar mass excision neurologic hendrickson. -Pain management deferred to primary team. -Oncology management deferred to oncologist and primary team. -Ortho consulted for a lytic bone lesion---she is POD #1 ORIF. -PT/OT ordered yesterday for upper extremity exercises; patient has a recent h/o right rotator cuff surgery and her/family requesting PT/OT for that. -PT on hold for now for lower extremity exercises 2/2 lytic bone lesion. To be resumes by ortho and primary. -Continue SCD. -Rehab recommended once discharged. -No further neurologic intervention at this time, however, we will continue to follow while in the hospital. -Please notify neuro team of any acute changes. Case discussed with Dr. Velasco. Status: Acute
--- NOTE | 2018-03-29 10:57 | RAD ---
Date of service: 03/28/2018 PROCEDURE: Intraoperative Fluoroscopy. HISTORY: RIGHT FEMUR fracture FINDINGS: Fluoroscopic assistance was provided for right femur fracture repair. Please refer to the operative report from [facility].
--- NOTE | 2018-03-29 15:14 | CP.PCM.PN ---
Subjective - Date & Time of Evaluation Date of Evaluation: 03/29/18 Time of Evaluation: 15:10 - Subjective Subjective: Patient states pain is much better today. She is nervous about moving her leg due to the pain she had yesterday. Patient denies CP/SOB/dizziness. She did not do much with PT today due to BP. Objective - Vital Signs/Intake and Output Vital Signs (last 24 hours): Temp Pulse Resp BP Pulse Ox 98.3 F 88 20 90/56 L 95 03/29/18 07:35 03/29/18 07:35 03/29/18 07:35 03/29/18 07:35 03/29/18 07:35 Intake and Output: 03/29/18 03/29/18 06:59 18:59 Output Total 850 2300 Balance -850 -2300 - Medications Medications: Current Medications Acetaminophen (Tylenol 325mg Tab) 650 mg PO Q6 [facility] Last Admin: 03/29/18 12:00 Dose: Not Given Bisoprolol Fumarate (Zebeta) 2.5 mg PO Q24H [facility] Last Admin: 03/28/18 11:37 Dose: 2.5 mg Dexamethasone (Decadron) 2 mg PO Q12H [facility] Last Admin: 03/29/18 06:26 Dose: 2 mg Docusate Sodium (Colace) 100 mg PO BID [facility] Last Admin: 03/29/18 10:41 Dose: 100 mg Famotidine (Pepcid) 20 mg PO BID [facility] Last Admin: 03/29/18 10:39 Dose: 20 mg Fentanyl (Duragesic) 1 patch TD Q72H [facility] Last Admin: 03/27/18 12:02 Dose: 1 patch Hydromorphone HCl (Dilaudid) 0.5 mg IVP Q4H PRN PRN Reason: Pain, moderate (4-7) Hydroxychloroquine Sulfate (Plaquenil) 200 mg PO DAILY [facility]; Protocol Last Admin: 03/29/18 10:41 Dose: 200 mg Lactated Ringer's (Lactated Ringer's) 1,000 mls @ 150 mls/hr IV .Q6H40M [facility] Last Admin: 03/29/18 12:00 Dose: Not Given Levetiracetam (Keppra) 500 mg PO BID [facility] Last Admin: 03/29/18 10:40 Dose: 500 mg Levothyroxine Sodium (Synthroid) 75 mcg PO DAILY@0630 [facility] Last Admin: 03/29/18 06:26 Dose: 75 mcg Metoclopramide HCl (Reglan) 10 mg IVP ACHS [facility] Last Admin: 03/29/18 10:42 Dose: 10 mg Oxycodone HCl (Oxycodone Immediate Release Tab) 10 mg PO Q4H PRN PRN Reason: Pain, moderate (4-7) Last Admin: 03/29/18 10:34 Dose: 10 mg - Labs Labs: 03/29/18 07:51 03/29/18 07:51 PT 12.4 SECONDS (9.7-12.2) H 03/28/18 11:22 INR 1.1 03/28/18 11:22 APTT 26 SECONDS (21-34) 03/28/18 11:22 - Extremities Exam Additional comments: Right thigh: swelling as expected, moderate, soft. +ROM ankle/toes, sensation itnact, calves soft NT neg homans scd intact, +DP/PT pulses, no visible drainage, mild knee swelling expected Assessment and Plan (1) Pathological fracture, right femur, initial encounter for fracture Assessment & Plan: POD#1 s/p right femur IM nailing patient with completion of fracture just prior to OR yesterday, demonstrated on intraoperative imaging hypotensive, patient for another bolus will repeat CBC now expect significant drop due to fracture and surgery d/c alden will check vitamin D labs in am d/w Dr. Morrow, agrees with above case d/w family and psychologist social at length, will need daily brain radiation, ideally if candidate for TCU patient would benefit from [facility] as there is radiation oncology at [facility]. This is patient's family's request. Status: Acute (2) Lytic bone lesion of right femur Status: Acute (3) Acute blood loss anemia Assessment & Plan: monitor bp cbc now Status: Acute
[2018-03-29 16:23] LABS: CA 27.29 135 U/mL (<38)
[2018-03-29 17:24] LABS: HEMOGLOBIN 9.5 g/dL (11.0-16.0); MEAN CELL VOLUME 88.9 fL (81.0-99.0); MEAN CORPUSCULAR HEMOGLOBIN 29.7 pg (27.0-31.0); MEAN CORPUSCULAR HGB CONC 33.4 g/dL (33.0-37.0); MEAN PLATELET VOLUME 7.9 fL (7.2-11.7); RBC 3.21 Mil/uL (3.80-5.20); RED CELL DISTRIBUTION WIDTH 13.2 % (11.5-14.5); WHITE BLOOD COUNT 7.9 K/uL (4.8-10.8)
[2018-03-30] MEDS: oxyCODONE 10 mg Immediate Release Tab PO PRN ×3 (00:07→08:23)
--- NOTE | 2018-03-30 01:27 | PN ---
DATE: 03/28/2018 LATE ENTRY FOR PROGRESS NOTE SUBJECTIVE: The patient was seen on 03/28/2018. The patient was having pain on the right lower extremity after she was walking to the bathroom. PHYSICAL EXAMINATION: VITAL SIGNS: Blood pressure was 135/83, temperature 98.7, respiratory rate 20 and pulse 64. HEENT: Pupils equal and reactive to light. Normal-appearing mucosa of the conjunctivae, oropharynx and nasal membrane mucosa. NECK: Supple. No JVD. No carotid bruit. No lymph node. No thyromegaly. CHEST AND LUNGS: Bilateral symmetrical expansion. Good air exchange. No rales. No rhonchi. CARDIOVASCULAR SYSTEM: PMI not localized. S1 and S2. No additional sounds. ABDOMEN: Normoactive bowel sounds. No tenderness. No organomegaly. No masses. EXTREMITIES: No cyanosis, no clubbing, no edema. CENTRAL NERVOUS SYSTEM: Alert, awake, oriented x2. No neurological deficit could be appreciated. ASSESSMENT: 1. Metastatic disease of brain as well as status post craniotomy. 2. Right femur metastatic disease. The patient was scheduled for orthopedic stabilizing surgery. 3. Hypertension. 4. Hypothyroidism. PLAN: Continue pain management. The patient was for OR. Pathology report was still pending. Derrick Matthews MD
--- NOTE | 2018-03-30 01:35 | PN ---
DATE: 03/29/2018 DAILY PROGRESS NOTE SUBJECTIVE: The patient was seen today, 03/29/2018. Postoperative day #1 after right femur surgery. PHYSICAL EXAMINATION: VITAL SIGNS: Blood pressure 90/56, temperature 98.3, respiratory rate 20, and pulse 88. HEENT: Pupils equal and reactive to light. Normal-appearing mucosa of the conjunctivae, oropharynx and nasal membrane mucosa. NECK: Supple. No JVD. No carotid bruit. No lymph node. No thyromegaly. CHEST AND LUNGS: Bilateral symmetrical expansion. Good air exchange. No rales. No rhonchi. CARDIOVASCULAR SYSTEM: PMI not localized. S1 and S2. No additional sounds. ABDOMEN: Normoactive bowel sounds. No tenderness. No organomegaly. No masses. EXTREMITIES: No cyanosis, no clubbing, no edema. CENTRAL NERVOUS SYSTEM: Alert, awake, oriented x2. Moves all extremities equally. ASSESSMENT: 1. Metastatic brain disease, status post craniotomy. Primary is likely breast cancer. 2. Right femur metastatic disease, status post orthopedic stabilization surgery. 3. Hypothyroidism. PLAN: Continue current pain management and follow orthopedic and oncology recommendations. Follow the pathology report. Derrick Matthews MD
[2018-03-30] MEDS: Lactated Ringer's 1,000 ML IV SCH ×4 (03:59→23:06)
[2018-03-30] MEDS: Levothyroxine 75 MCG TAB PO SCH (07:00)
[2018-03-30] MEDS ORDERED: Ergocalciferol 50,000 Intl Units Cap PO SCH (07:15)
[2018-03-30 07:23] LABS: HEMOGLOBIN 9.1 g/dL (11.0-16.0); MEAN CELL VOLUME 88.8 fL (81.0-99.0); MEAN CORPUSCULAR HEMOGLOBIN 30.7 pg (27.0-31.0); MEAN CORPUSCULAR HGB CONC 34.5 g/dL (33.0-37.0); MEAN PLATELET VOLUME 7.6 fL (7.2-11.7); RBC 2.97 Mil/uL (3.80-5.20); RED CELL DISTRIBUTION WIDTH 12.9 % (11.5-14.5); WHITE BLOOD COUNT 8.9 K/uL (4.8-10.8)
[2018-03-30 07:58] LABS: BLOOD UREA NITROGEN 7 mg/dL (7-17); CALCIUM 7.8 mg/dl (8.6-10.4); GFR NON-AFRICAN AMERICAN > 60
--- NOTE | 2018-03-30 09:24 | CT ---
Date of service: 03/29/2018 PROCEDURE: CT HEAD WITHOUT CONTRAST. HISTORY: sudden headache, blurry vision COMPARISON: MRI brain 03/19/2018 TECHNIQUE: Axial computed tomography images were obtained through the head/brain without intravenous contrast. Radiation dose: Total exam DLP = 902.49 mGy-cm. This CT exam was performed using one or more of the following dose reduction techniques: Automated exposure control, adjustment of the mA and/or kV according to patient size, and/or use of iterative reconstruction technique. FINDINGS: HEMORRHAGE: No intracranial hemorrhage. BRAIN: No mass effect or edema. Status post right occipital craniotomy with postoperative changes in right cerebellar hemisphere status post resection of metastasis demonstrated on prior recent MRI examination. Small amount of high attenuation within the operative site may represent a small amount of postoperative blood. No definite intracranial mass identified elsewhere on this noncontrast examination. There is focal low-attenuation in the medial right occipital lobe, however, abutting the interhemispheric fissure, corresponding to a known metastatic focus on recent MR examination. There is minimal surrounding vasogenic edema. VENTRICLES: Unremarkable. No hydrocephalus. CALVARIUM: Right occipital craniotomy defect. No acute fracture. PARANASAL SINUSES: Unremarkable as visualized. No significant inflammatory changes. MASTOID AIR CELLS: Unremarkable as visualized. No inflammatory changes. OTHER FINDINGS: None. IMPRESSION: Status post right occipital craniotomy and resection of cerebellar mass. There is evidence of at least 1 additional mass though multiple masses are present as per the MR examination of 03/19/2018. However, this examination is performed without intravenous contrast administration and is of limited sensitivity. Questionable small amount of hemorrhage within the operative site in the right cerebellar hemisphere. No intracranial hemorrhage appreciated elsewhere. The preliminary findings for this examination were reported by [facility] at 10:11 p.m. on 03/29/2018. There is discordance of this report with the preliminary findings. Low attenuation in the right cerebellar hemisphere is felt likely to correspond to the location of demonstrated neoplasm and postoperative change rather than infarct as noted above.
--- NOTE | 2018-03-30 09:36 | CP.PCM.PN ---
Subjective - Date & Time of Evaluation Date of Evaluation: 03/30/18 Time of Evaluation: 08:20 - Subjective Subjective: Patient seen and examined. POD# 2. Patient alert and awake, sitting up in bed. Patient states pain is controlled and is feeling better. Denies CP/SOB Afebrile BP now 100/69 WBC 8.9 Hgb 9.1 Objective - Vital Signs/Intake and Output Vital Signs (last 24 hours): Temp Pulse Resp BP Pulse Ox 98.4 F 110 H 20 100/69 96 03/30/18 07:43 03/30/18 07:43 03/30/18 07:43 03/30/18 07:43 03/30/18 07:43 - Medications Medications: Current Medications Acetaminophen (Tylenol 325mg Tab) 650 mg PO Q6 [facility] Last Admin: 03/30/18 00:12 Dose: Not Given Bisoprolol Fumarate (Zebeta) 2.5 mg PO Q24H [facility] Last Admin: 03/28/18 11:37 Dose: 2.5 mg Calcium/Vitamin D (Oyster Shell Calcium/Vitamin D 500 Mg-200 Iu) 1 tab PO DAILY [facility] Dexamethasone (Decadron) 2 mg PO Q12H [facility] Last Admin: 03/30/18 07:00 Dose: 2 mg Docusate Sodium (Colace) 100 mg PO BID [facility] Last Admin: 03/29/18 18:33 Dose: 100 mg Ergocalciferol (Drisdol 50,000 Intl Units Cap) 1 cap PO Q7D [facility] Famotidine (Pepcid) 20 mg PO BID [facility] Last Admin: 03/29/18 18:33 Dose: 20 mg Fentanyl (Duragesic) 1 patch TD Q72H [facility] Last Admin: 03/27/18 12:02 Dose: 1 patch Hydromorphone HCl (Dilaudid) 0.5 mg IVP Q4H PRN PRN Reason: Pain, moderate (4-7) Hydroxychloroquine Sulfate (Plaquenil) 200 mg PO DAILY [facility]; Protocol Last Admin: 03/29/18 10:41 Dose: 200 mg Lactated Ringer's (Lactated Ringer's) 1,000 mls @ 150 mls/hr IV .Q6H40M [facility] Last Admin: 03/30/18 03:59 Dose: 150 mls/hr Levetiracetam (Keppra) 500 mg PO BID [facility] Last Admin: 03/29/18 18:33 Dose: 500 mg Levothyroxine Sodium (Synthroid) 75 mcg PO DAILY@0630 [facility] Last Admin: 03/30/18 07:00 Dose: 75 mcg Metoclopramide HCl (Reglan) 10 mg IVP ACHS [facility] Last Admin: 03/29/18 22:20 Dose: Not Given Oxycodone HCl (Oxycodone Immediate Release Tab) 10 mg PO Q4H PRN PRN Reason: Pain, moderate (4-7) Last Admin: 03/30/18 03:57 Dose: 10 mg - Labs Labs: 03/30/18 07:10 03/30/18 07:10 PT 12.4 SECONDS (9.7-12.2) H 03/28/18 11:22 INR 1.1 03/28/18 11:22 APTT 26 SECONDS (21-34) 03/28/18 11:22 - Head Exam Head Exam: ATRAUMATIC, NORMAL INSPECTION, NORMOCEPHALIC - Neck Exam Neck Exam: Full ROM - Respiratory Exam Respiratory Exam: NORMAL BREATHING PATTERN - Extremities Exam Additional comments: Right thigh: dressings changed. Incision sites are clean, dry and intact with the sutures in place. Incision sites cleaned and new dressings applied. Moderate swelling noted over the thigh as expected, but thigh and calf are soft and nontender to palpation. +AROM foot and ankle. Sensation intact to light touch. Grossly NVI distally Assessment and Plan (1) Lytic bone lesion of right femur Status: Acute (2) Pathological fracture, right femur, initial encounter for fracture Assessment & Plan: POD# 2 Cont PT with toe touch of RLE Cont pain control DVT prophylaxis per medicine/neuro [facility], as patient needs daily brain radiation. Discussed above with Dr. Morrow, agrees with above Status: Acute
--- NOTE | 2018-03-30 10:43 | CP.PCM.PN ---
Objective - Vital Signs/Intake and Output Vital Signs (last 24 hours): Temp Pulse Resp BP Pulse Ox 98.4 F 110 H 20 100/69 96 03/30/18 07:43 03/30/18 07:43 03/30/18 07:43 03/30/18 07:43 03/30/18 07:43 - Medications Medications: Current Medications Acetaminophen (Tylenol 325mg Tab) 650 mg PO Q6 [facility] Last Admin: 03/30/18 00:12 Dose: Not Given Bisoprolol Fumarate (Zebeta) 2.5 mg PO Q24H [facility] Last Admin: 03/28/18 11:37 Dose: 2.5 mg Calcium/Vitamin D (Oyster Shell Calcium/Vitamin D 500 Mg-200 Iu) 1 tab PO DAILY [facility] Dexamethasone (Decadron) 2 mg PO Q12H [facility] Last Admin: 03/30/18 07:00 Dose: 2 mg Docusate Sodium (Colace) 100 mg PO BID [facility] Last Admin: 03/30/18 10:00 Dose: 100 mg Ergocalciferol (Drisdol 50,000 Intl Units Cap) 1 cap PO Q7D [facility] Last Admin: 03/30/18 09:59 Dose: 1 cap Famotidine (Pepcid) 20 mg PO BID [facility] Last Admin: 03/30/18 10:00 Dose: 20 mg Fentanyl (Duragesic) 1 patch TD Q72H [facility] Last Admin: 03/27/18 12:02 Dose: 1 patch Hydromorphone HCl (Dilaudid) 0.5 mg IVP Q4H PRN PRN Reason: Pain, moderate (4-7) Hydroxychloroquine Sulfate (Plaquenil) 200 mg PO DAILY [facility]; Protocol Last Admin: 03/30/18 09:59 Dose: 200 mg Lactated Ringer's (Lactated Ringer's) 1,000 mls @ 150 mls/hr IV .Q6H40M [facility] Last Admin: 03/30/18 10:06 Dose: 150 mls/hr Levetiracetam (Keppra) 500 mg PO BID [facility] Last Admin: 03/30/18 10:08 Dose: 500 mg Levothyroxine Sodium (Synthroid) 75 mcg PO DAILY@0630 [facility] Last Admin: 03/30/18 07:00 Dose: 75 mcg Metoclopramide HCl (Reglan) 10 mg IVP ACHS [facility] Last Admin: 03/30/18 09:21 Dose: Not Given Oxycodone HCl (Oxycodone Immediate Release Tab) 10 mg PO Q4H PRN PRN Reason: Pain, moderate (4-7) Last Admin: 03/30/18 08:23 Dose: 10 mg - Labs Labs: 03/30/18 07:10 03/30/18 07:10 PT 12.4 SECONDS (9.7-12.2) H 03/28/18 11:22 INR 1.1 03/28/18 11:22 APTT 26 SECONDS (21-34) 03/28/18 11:22 Assessment and Plan (1) Cerebellar mass Assessment & Plan: -CT Head (03/29/18): Status post right occipital craniotomy and resection of cerebellar mass. There is evidence of at least 1 additional mass though mu ltiple masses are present as per the MR examination of 03/19/2018. However, this examination is performed without intravenous contrast administration and is of limited sensitivity. Questionable small amount of hemorrhage within the operative site in the right cerebellar hemisphere. No intracranial hemorrhage appreciated elsewhere. The preliminary findings for this examination were reported by [facility] Radiology at 10:11 p.m. on 03/29/2018. There is discordance of this report with the preliminary findings. Low attenuation in the right cerebellar hemisphere is felt likely to correspond to the location of demonstrated neoplasm and postoperative change rather than infarct as noted above -Mrs. Styles is doing very well post-procedure neurologic hendrickson. -POD #9: cerebellar mass excision by neurosurgery. -Pain management deferred to primary team. -Oncology management deferred to oncologist and primary team. -PT when cleared by ortho to start. -Rehab recommended once discharged. -No further neurologic intervention at this time, however, we will continue to follow while in the hospital. -Please notify neuro team of any acute changes. Case discussed with Dr. Velasco. Status: Acute (2) Lytic bone lesion of right femur Status: Acute
--- NOTE | 2018-03-30 12:59 | CP.PCM.PN ---
Subjective - Subjective Subjective: states severe DURON has resolved feels well neuro intact wound C and D Too early to remove kathleen can be dced from our view will c in off next week Objective - Vital Signs/Intake and Output Vital Signs (last 24 hours): Temp Pulse Resp BP Pulse Ox 98.4 F 110 H 20 100/69 96 03/30/18 07:43 03/30/18 07:43 03/30/18 07:43 03/30/18 07:43 03/30/18 07:43 - Medications Medications: Current Medications Acetaminophen (Tylenol 325mg Tab) 650 mg PO Q6 [facility] Last Admin: 03/30/18 00:12 Dose: Not Given Bisoprolol Fumarate (Zebeta) 2.5 mg PO Q24H [facility] Last Admin: 03/28/18 11:37 Dose: 2.5 mg Calcium/Vitamin D (Oyster Shell Calcium/Vitamin D 500 Mg-200 Iu) 1 tab PO DAILY [facility] Dexamethasone (Decadron) 2 mg PO Q12H [facility] Last Admin: 03/30/18 07:00 Dose: 2 mg Docusate Sodium (Colace) 100 mg PO BID [facility] Last Admin: 03/30/18 10:00 Dose: 100 mg Ergocalciferol (Drisdol 50,000 Intl Units Cap) 1 cap PO Q7D [facility] Last Admin: 03/30/18 09:59 Dose: 1 cap Famotidine (Pepcid) 20 mg PO BID [facility] Last Admin: 03/30/18 10:00 Dose: 20 mg Fentanyl (Duragesic) 1 patch TD Q72H [facility] Last Admin: 03/27/18 12:02 Dose: 1 patch Hydromorphone HCl (Dilaudid) 0.5 mg IVP Q4H PRN PRN Reason: Pain, moderate (4-7) Hydroxychloroquine Sulfate (Plaquenil) 200 mg PO DAILY [facility]; Protocol Last Admin: 03/30/18 09:59 Dose: 200 mg Lactated Ringer's (Lactated Ringer's) 1,000 mls @ 150 mls/hr IV .Q6H40M [facility] Last Admin: 03/30/18 10:06 Dose: 150 mls/hr Levetiracetam (Keppra) 500 mg PO BID [facility] Last Admin: 03/30/18 10:08 Dose: 500 mg Levothyroxine Sodium (Synthroid) 75 mcg PO DAILY@0630 [facility] Last Admin: 03/30/18 07:00 Dose: 75 mcg Metoclopramide HCl (Reglan) 10 mg IVP [facility] Last Admin: 03/30/18 09:21 Dose: Not Given Oxycodone HCl (Oxycodone Immediate Release Tab) 10 mg PO Q4H PRN PRN Reason: Pain, moderate (4-7) Last Admin: 03/30/18 08:23 Dose: 10 mg - Labs Labs: 03/30/18 07:10 03/30/18 07:10 PT 12.4 SECONDS (9.7-12.2) H 03/28/18 11:22 INR 1.1 03/28/18 11:22 APTT 26 SECONDS (21-34) 03/28/18 11:22
[2018-03-30] MEDS: Calcium-Vit D 500 mg-200 Units Tab UD PO SCH (13:16)
--- NOTE | 2018-03-30 13:21 | CP.PCM.PCO ---
Physician Communication Note - Physician Communication Note Physician Communication Note: neuro signing off; reconsult prn; continue PT/OT per ortho/primary. Thanks.
[2018-03-30] MEDS: Enoxaparin 40 mg Syringe SC SCH (16:19)
--- NOTE | 2018-03-30 23:49 | PN ---
DATE: 03/30/2018 SUBJECTIVE: The patient is seen today, 03/30/2018. She is not in any cardiopulmonary distress, postoperative day #2 after orthopedic surgery. PHYSICAL EXAMINATION: VITAL SIGNS: Blood pressure 108/71, temperature 99.4, respiratory rate 20, and pulse 105. HEENT: Pupils equal, reactive to light. Normal-appearing mucosa of the conjunctivae, oropharynx, and nasal membrane mucosa. NECK: Supple. No JVD. No carotid bruit. No lymph node. No thyromegaly. CHEST AND LUNGS: Bilateral symmetrical expansion. Good air exchange. No rales, no rhonchi. CARDIOVASCULAR SYSTEM: PMI not localized. S1, S2. No additional sounds. ABDOMEN: Normoactive bowel sounds. No tenderness. No organomegaly. No masses. EXTREMITIES: No cyanosis, no clubbing, no edema. CENTRAL NERVOUS SYSTEM: Alert, awake, and oriented x2, and moves all extremities equally. ASSESSMENT: 1. Metastatic disease to the brain and to the bone, status post craniotomy with removal of posterior fossa mass as well as orthopedic stabilization surgery of the right femur. 2. Hypothyroidism. 3. Systemic lupus erythematosus. PLAN: Followup. We are still awaiting for the pathology report. Continue physical therapy and after discussion with Dr. Morin regarding possibility of starting DVT prophylaxis with Lovenox which he agreed for, we are going to start. Derirck Matthews MD
[2018-03-31] MEDS: Lactated Ringer's 1,000 ML IV SCH ×4 (01:00→18:15)
[2018-03-31] MEDS: Levothyroxine 75 MCG TAB PO SCH (06:38)
[2018-03-31] MEDS: Enoxaparin 40 mg Syringe SC SCH (10:07)
[2018-03-31] MEDS: Calcium-Vit D 500 mg-200 Units Tab UD PO SCH (10:08)
[2018-03-31] MEDS: oxyCODONE 10 mg Immediate Release Tab PO PRN (15:33)
[2018-04-01] MEDS: Levothyroxine 75 MCG TAB PO SCH (05:46)
[2018-04-01] MEDS: Enoxaparin 40 mg Syringe SC SCH (10:25)
[2018-04-01] MEDS: Calcium-Vit D 500 mg-200 Units Tab UD PO SCH (10:28)
[2018-04-01] MEDS: Lactated Ringer's 1,000 ML IV SCH (17:34)
--- NOTE | 2018-04-02 01:28 | PN ---
DATE: 03/31/2018 SUBJECTIVE: She was complaining of constipation. PHYSICAL EXAMINATION GENERAL: Text. VITAL SIGNS: Blood pressure was 120/80, temperature 97.8, respiratory rate 20 and pulse 90. HEENT: Pupils equal and reactive to light. Normal-appearing mucosa of the conjunctivae, oropharynx and nasal membrane mucosa. NECK: Supple. No JVD. No carotid bruit. No lymph node. No thyromegaly. CARDIOPULMONARY: Text. CHEST AND LUNGS: Bilateral symmetrical expansion. Good air exchange. No rales, no rhonchi. CARDIOVASCULAR SYSTEM: PMI not localized. S1, S2. No additional sounds. ABDOMEN: Normoactive bowel sounds. No tenderness. No organomegaly. No masses. EXTREMITIES: No cyanosis, no clubbing, no edema. EDUCATION PROFESSIONAL: Alert, awake, oriented x2. NEURO: No neurologic deficits could be appreciated. ASSESSMENT: 1. Metastatic disease with likely breast primary. 2. Hypothyroidism. 3. Status post right femur metastasis and status post orthopedic stabilization surgery. PLAN: Follow up Orthopedic/Neurosurgery consult. Await the pathology report which was sent to . Will give lactulose 30 mL every 4 hours until bowel movement. Derrick Matthews MD
[2018-04-02] MEDS: Lactated Ringer's 1,000 ML IV SCH (01:44)
[2018-04-02] MEDS: Levothyroxine 75 MCG TAB PO SCH (05:32)
[2018-04-02] MEDS: Enoxaparin 40 mg Syringe SC SCH (10:37)
[2018-04-02] MEDS: Calcium-Vit D 500 mg-200 Units Tab UD PO SCH (10:37)
[2018-04-02 16:10] VITALS: RESP 20
--- NOTE | 2018-04-02 20:17 | PN ---
DATE: 04/02/2018 SUBJECTIVE: She is not in any cardiopulmonary distress. PHYSICAL EXAMINATION: VITAL SIGNS: Blood pressure is 125/80, temperature 97.7, respiratory rate 20, and pulse 85. HEENT: Pupils equal, reactive to light. Normal-appearing mucosa of the conjunctivae, oropharynx and nasal membrane mucosa. NECK: Supple. No JVD. No carotid bruit. No lymph node. No thyromegaly. CHEST AND LUNGS: Bilateral symmetrical expansion. Good air exchange. No rales, no rhonchi. CARDIOVASCULAR SYSTEM: PMI not localized. S1, S2. No additional sounds. ABDOMEN: Normoactive bowel sounds. No tenderness. No organomegaly. No masses. EXTREMITIES: No cyanosis, no clubbing, no edema. DIRECTOR HR COMMUNICATIONS: Alert, awake, oriented x2. No neurological deficit could be appreciated. ASSESSMENT: 1. Status post craniotomy for metastatic cerebellar disease. 2. Metastatic breast cancer. 3. Femur metastasis status post right femur stabilization surgery. PLAN: Continue physical therapy and rehabilitation and once the kathleen are off, the patient will start brain radiation. Derrick Matthews MD
[2018-04-03] MEDS: Levothyroxine 75 MCG TAB PO SCH (06:00)
--- NOTE | 2018-04-03 07:59 | CP.PCM.PN ---
Subjective - Date & Time of Evaluation Date of Evaluation: 04/03/18 Time of Evaluation: 07:55 - Subjective Subjective: Patient states she still has a lot of pain in her right leg. No new complaints. Objective - Vital Signs/Intake and Output Vital Signs (last 24 hours): Temp Pulse Resp BP Pulse Ox 98.1 F 84 20 103/71 97 04/03/18 00:00 04/03/18 00:00 04/03/18 00:00 04/03/18 00:00 04/03/18 00:00 Intake and Output: 04/03/18 04/03/18 06:59 18:59 Intake Total 980 Balance 980 - Medications Medications: Current Medications Acetaminophen (Tylenol 325mg Tab) 650 mg PO Q6 [facility] Last Admin: 04/03/18 06:00 Dose: 650 mg Acetaminophen (Tylenol 325mg Tab) 650 mg PO Q6 PRN PRN Reason: Pain, moderate (4-7) Last Admin: 04/02/18 22:48 Dose: 650 mg Bisoprolol Fumarate (Zebeta) 2.5 mg PO Q24H [facility] Last Admin: 03/28/18 11:37 Dose: 2.5 mg Calcium/Vitamin D (Oyster Shell Calcium/Vitamin D 500 Mg-200 Iu) 1 tab PO DAILY [facility] Last Admin: 04/02/18 10:37 Dose: 1 tab Dexamethasone (Decadron) 2 mg PO Q12H [facility] Last Admin: 04/03/18 06:08 Dose: 2 mg Docusate Sodium (Colace) 100 mg PO BID [facility] Last Admin: 04/02/18 17:02 Dose: 100 mg Enoxaparin Sodium (Lovenox) 40 mg SC DAILY [facility] Last Admin: 04/02/18 10:37 Dose: 40 mg Ergocalciferol (Drisdol 50,000 Intl Units Cap) 1 cap PO Q7D [facility] Last Admin: 03/30/18 09:59 Dose: 1 cap Famotidine (Pepcid) 20 mg PO BID [facility] Last Admin: 04/02/18 17:02 Dose: 20 mg Ferrous Sulfate (Feosol) 325 mg PO BID [facility] Last Admin: 04/02/18 17:04 Dose: 325 mg Lactulose (Enulose) 20 gm PO Q4 PRN PRN Reason: Constipation Last Admin: 04/01/18 05:46 Dose: 20 gm Levetiracetam (Keppra) 500 mg PO BID [facility] Last Admin: 04/02/18 17:02 Dose: 500 mg Metoclopramide HCl (Reglan) 10 mg IVP ACH[facility] Last Admin: 04/02/18 21:32 Dose: Not Given - Labs Labs: 03/30/18 07:10 03/30/18 07:10 PT 12.4 SECONDS (9.7-12.2) H 03/28/18 11:22 INR 1.1 03/28/18 11:22 APTT 26 SECONDS (21-34) 03/28/18 11:22 - Extremities Exam Additional comments: Right hip: +swelling and ecchymosis to thigh, incisions intact, no erythema, scant serous drainage proximal incision, improving calves soft NT neg homans,+DP/PT pulses, sensation inatcyt +ROM ankle/toes Assessment and Plan (1) Pathological fracture, right femur, initial encounter for fracture Assessment & Plan: POD# 6 s/p right hip IM nailing -orthopedically stable for d/c -PT/OT -d/c planning in progress to facilitate PT and radiation needs -VTE proph -d/w Dr. Morrow, agrees with above Status: Acute (2) Lytic bone lesion of right femur Status: Acute (3) Acute blood loss anemia Status: Acute
[2018-04-03] MEDS: Enoxaparin 40 mg Syringe SC SCH (10:56)
[2018-04-03] MEDS: Calcium-Vit D 500 mg-200 Units Tab UD PO SCH (10:57)
--- NOTE | 2018-04-04 03:22 | PN ---
DATE: 04/03/2018 SUBJECTIVE: The patient is seen today on April 03, 2018. She is not in any cardiopulmonary distress. The patient is on physical therapy and DVT prophylaxis. PHYSICAL EXAMINATION VITAL SIGNS: Blood pressure is 120/79, temperature 97.4, respiratory rate 20 and pulse 90. HEENT: Pupils equal, reactive to light. Normal-appearing mucosa of the conjunctivae, oropharynx and nasal membrane mucosa. NECK: Supple. No JVD. No carotid bruit. No lymph nodes. No thyromegaly. CHEST AND LUNGS: Bilateral symmetrical expansion. Good air exchange. No rales, no rhonchi. CARDIOVASCULAR SYSTEM: PMI not localized. S1, S2. No additional sounds. ABDOMEN: Normoactive bowel sounds. No tenderness. No organomegaly. No masses. EXTREMITIES: No cyanosis, no clubbing, no edema. MAIL HANDLER EQUIPMENT OPERATOR: Alert, awake, oriented x2. No neurological deficit could be appreciated. ASSESSMENT AND PLAN: Metastatic breast cancer to both the brain and the femur, status post craniotomy with excision of cerebellar tumor and also stabilization surgery. Discussed with family regarding subacute rehabilitation. They are agreeable for [place] or [facility]. Follow up with neurosurgery regarding kathleen removal. Derrick Matthews MD
--- NOTE | 2018-04-04 09:24 | CP.PCM.PN ---
Subjective - Date & Time of Evaluation Date of Evaluation: 04/04/18 Time of Evaluation: 09:20 - Subjective Subjective: Patient seen and examined. Still complaining of pain in her right leg. No new complaints. Denies CP or SOB Objective - Vital Signs/Intake and Output Vital Signs (last 24 hours): Temp Pulse Resp BP Pulse Ox 98.0 F 99 H 20 114/86 97 04/03/18 23:00 04/04/18 08:23 04/04/18 08:23 04/04/18 08:23 04/04/18 08:23 - Medications Medications: Current Medications Acetaminophen (Tylenol 325mg Tab) 650 mg PO Q6 [facility] Last Admin: 04/04/18 06:00 Dose: Not Given Acetaminophen (Tylenol 325mg Tab) 650 mg PO Q6 PRN PRN Reason: Pain, moderate (4-7) Last Admin: 04/04/18 06:54 Dose: 650 mg Bisoprolol Fumarate (Zebeta) 2.5 mg PO Q24H [facility] Last Admin: 03/28/18 11:37 Dose: 2.5 mg Calcium/Vitamin D (Oyster Shell Calcium/Vitamin D 500 Mg-200 Iu) 1 tab PO DAILY [facility] Last Admin: 04/03/18 10:57 Dose: 1 tab Dexamethasone (Decadron) 2 mg PO Q12H [facility] Last Admin: 04/04/18 06:54 Dose: 2 mg Docusate Sodium (Colace) 100 mg PO BID [facility] Last Admin: 04/03/18 17:53 Dose: 100 mg Enoxaparin Sodium (Lovenox) 40 mg SC DAILY [facility] Last Admin: 04/03/18 10:56 Dose: 40 mg Ergocalciferol (Drisdol 50,000 Intl Units Cap) 1 cap PO Q7D [facility] Last Admin: 03/30/18 09:59 Dose: 1 cap Famotidine (Pepcid) 20 mg PO BID [facility] Last Admin: 04/03/18 17:53 Dose: 20 mg Ferrous Sulfate (Feosol) 325 mg PO BID [facility] Last Admin: 04/03/18 17:54 Dose: 325 mg Lactulose (Enulose) 20 gm PO Q4 PRN PRN Reason: Constipation Last Admin: 04/01/18 05:46 Dose: 20 gm Levetiracetam (Keppra) 500 mg PO BID [facility] Last Admin: 04/03/18 17:54 Dose: 500 mg - Labs Labs: 03/30/18 07:10 03/30/18 07:10 PT 12.4 SECONDS (9.7-12.2) H 03/28/18 11:22 INR 1.1 03/28/18 11:22 APTT 26 SECONDS (21-34) 03/28/18 11:22 - Extremities Exam Additional comments: Right hip: dressings changed yesterday. Dressings clean dry and intact. +Swelling and ecchymosis to thigh. +AROM foot and ankle. Sensation intact to light touch. Calf and thigh are soft and nontender to palpation. Grossly NVI distally Assessment and Plan (1) Lytic bone lesion of right femur Status: Acute (2) Pathological fracture, right femur, initial encounter for fracture Assessment & Plan: POD# 7 s/p right hip fx with Im nail Cont PT with toe touch weight bearing ortho stable for discharge d/c planning for PT and radiation needs Cont DVT prophylaxis discussed above with Dr. Morrow, agrees with above Status: Acute
[2018-04-04] MEDS: Enoxaparin 40 mg Syringe SC SCH (11:00)
[2018-04-04] MEDS: Calcium-Vit D 500 mg-200 Units Tab UD PO SCH (11:00)
[2018-04-04 14:11] LABS: BASO # 0.1 K/uL (0.0-0.2); BASO % 0.5 % (0.0-2.0); EOS # 0.1 K/uL (0.0-0.7); EOS % 0.9 % (0.0-4.0); HEMOGLOBIN 10.7 g/dL (11.0-16.0); LYMPH % 21.8 % (20.0-40.0); MEAN CELL VOLUME 89.5 fL (81.0-99.0); MEAN CORPUSCULAR HEMOGLOBIN 29.8 pg (27.0-31.0); MEAN CORPUSCULAR HGB CONC 33.3 g/dL (33.0-37.0); MEAN PLATELET VOLUME 6.9 fL (7.2-11.7); MONO # 0.9 K/uL (0.0-0.8); MONO % 6.9 % (0.0-10.0); NEUT # 9.5 K/uL (1.8-7.0); NEUT % 69.9 % (50.0-75.0); NRBC % 0.1 % (0.0-2.0); RBC 3.59 Mil/uL (3.80-5.20); RED CELL DISTRIBUTION WIDTH 13.6 % (11.5-14.5)
[2018-04-04 14:15] LABS: WHITE BLOOD COUNT 13.6 K/uL (4.8-10.8)
[2018-04-04 14:22] LABS: BLOOD UREA NITROGEN 14 mg/dL (7-17); CALCIUM 8.6 mg/dl (8.6-10.4); GFR NON-AFRICAN AMERICAN > 60
--- NOTE | 2018-04-05 00:08 | PN ---
DATE: 04/04/2018 DAILY PROGRESS NOTE SUBJECTIVE: The patient is seen today, 04/04/2018. She is compliant with physical therapy. Still has pain on the right lower extremity. PHYSICAL EXAMINATION: VITAL SIGNS: Blood pressure 114/86, temperature 98.2, respiratory rate 20 and pulse 90. HEENT: Pupils equal and reactive to light. Normal-appearing mucosa of the conjunctivae, oropharynx and nasal membrane mucosa. NECK: Supple. No JVD. No carotid bruit. No lymph nodes. No thyromegaly. CHEST AND LUNGS: Bilateral symmetrical expansion. Good air exchange. No rales. No rhonchi. CARDIOVASCULAR SYSTEM: PMI not localized. S1 and S2. No additional sounds. ABDOMEN: Normoactive bowel sounds. No tenderness. No organomegaly. No masses. EXTREMITIES: No cyanosis, no clubbing, no edema. CENTRAL NERVOUS SYSTEM: Alert, awake, oriented x2. No neurological deficit could be appreciated. ASSESSMENT: Metastatic inflammatory lobulated breast cancer to the brain as well as to the right femur. Status post craniotomy and femoral stabilization surgery. PLAN: Continue current medications. Asked the neuro surgeon to take off the kathleen before the patient leaves to subacute rehabilitation. Derrick Matthews MD
[2018-04-05 00:24] VITALS: TEMP 98.3
[2018-04-05] MEDS ORDERED: Levothyroxine 75 MCG TAB PO SCH (06:30)
[2018-04-05 08:01] VITALS: BP 105/73; PULSE 102; O2SAT 98
[2018-04-05] MEDS: Calcium-Vit D 500 mg-200 Units Tab UD PO SCH (09:48)
[2018-04-05] MEDS: Enoxaparin 40 mg Syringe SC SCH (09:50)
--- NOTE | 2018-04-05 13:47 | CP.PCM.PN ---
Subjective - Date & Time of Evaluation Date of Evaluation: 04/05/18 Time of Evaluation: 13:46 - Subjective Subjective: SPINE Skin kathleen removed. Incision has healed nicely. May leave open to air. OK to shower, with no excessive scrubbing at the surgical site. Objective - Vital Signs/Intake and Output Vital Signs (last 24 hours): Temp Pulse Resp BP Pulse Ox 98.3 F 102 H 20 105/73 98 04/05/18 08:00 04/05/18 08:00 04/05/18 08:00 04/05/18 08:00 04/05/18 08:00 - Medications Medications: Current Medications Acetaminophen (Tylenol 325mg Tab) 650 mg PO Q6 [facility] Last Admin: 04/05/18 00:00 Dose: Not Given Acetaminophen (Tylenol 325mg Tab) 650 mg PO Q6 PRN PRN Reason: Pain, moderate (4-7) Last Admin: 04/05/18 09:59 Dose: 650 mg Bisoprolol Fumarate (Zebeta) 2.5 mg PO Q24H [facility] Last Admin: 03/28/18 11:37 Dose: 2.5 mg Calcium/Vitamin D (Oyster Shell Calcium/Vitamin D 500 Mg-200 Iu) 1 tab PO DAILY [facility] Last Admin: 04/05/18 09:48 Dose: 1 tab Dexamethasone (Decadron) 2 mg PO Q12H [facility] Last Admin: 04/05/18 06:49 Dose: 2 mg Docusate Sodium (Colace) 100 mg PO BID [facility] Last Admin: 04/05/18 09:49 Dose: 100 mg Enoxaparin Sodium (Lovenox) 40 mg SC DAILY [facility] Last Admin: 04/05/18 09:50 Dose: 40 mg Ergocalciferol (Drisdol 50,000 Intl Units Cap) 1 cap PO Q7D [facility] Last Admin: 03/30/18 09:59 Dose: 1 cap Famotidine (Pepcid) 20 mg PO BID [facility] Last Admin: 04/05/18 09:48 Dose: 20 mg Ferrous Sulfate (Feosol) 325 mg PO BID [facility] Last Admin: 04/05/18 09:49 Dose: 325 mg Lactulose (Enulose) 20 gm PO Q4 PRN PRN Reason: Constipation Last Admin: 04/01/18 05:46 Dose: 20 gm Levetiracetam (Keppra) 500 mg PO BID [facility] Last Admin: 04/05/18 09:49 Dose: 500 mg Levothyroxine Sodium (Synthroid) 75 mcg PO DAILY@0630 [facility] Last Admin: 04/05/18 05:41 Dose: 75 mcg - Labs Labs: 04/04/18 13:58 04/04/18 13:58 PT 12.4 SECONDS (9.7-12.2) H 03/28/18 11:22 INR 1.1 03/28/18 11:22 APTT 26 SECONDS (21-34) 03/28/18 11:22
--- NOTE | 2018-04-05 17:01 | CARD ---
APPROVED REPORT Date of service: 04/04/2018 EXAM: Two-dimensional and M-mode echocardiogram with Doppler and color Doppler. Other Information Quality : Good[employer] : 2D DIMENSIONS IVSd1.1 (0.7-1.1cm)LVDd3.7 (3.9-5.9cm) PWd1.0 (0.7-1.1cm)LA Cbndpa62 (18-58mL) LVDs2.2 (2.5-4.0cm)FS (%) 40.4 % LVEF (%)72.0 (>50%)LVEF (Choi's)75 % M-Mode DIMENSIONS Left Atrium (MM)3.52 (2.5-4.0cm)IVSd0.78 (0.7-1.1cm) Aortic Root2.93 (2.2-3.7cm)LVDd4.28 (4.0-5.6cm) Aortic Cusp Exc.1.70 (1.5-2.0cm)PWd0.89 (0.7-1.1cm) FS (%) 49 %LVDs2.19 (2.0-3.8cm) LVEF (%)80 (>50%) Mitral Valve MV E Jilkfnio21.2cm/sMV A Eqamhikc28.7cm/sE/A ratio0.7 TDI Lateral E' Peak V8.22cm/sMedial E' Peak V6.16cm/sE/Lateral E'7.7 E/Medial E'10.3 Tricuspid Valve TR Peak Bzgvzmao347yd/sTR Peak Gr.[id number] <Conclusion> tds. poor window. normal size la,lv & ra rv. normal lv wall motion,thickness & systolic funciton with lvef of 65-70%. moderately calcified probably trileaflet aortic valve.no ai, normal mitral,tv & pv. mild tr,pi with calculated pulmonary systolic pressures of 36 mm of hg,c/w mild pulmonary hypertension. normal size sclerotic aortic root. no pericardial effusion.
--- NOTE | 2018-04-06 05:06 | DS ---
REASON FOR ADMISSION: This is a 58-year-old [place] female who was admitted for intractable headache and found to have multiple brain metastases. COURSE OF HOSPITALIZATION: The patient was admitted to intensive care unit and started on Decadron. The patient was evaluated by Neurosurgery and had a craniotomy with excision of large cerebellar tumor. Pathology was found to have lobulated metastatic breast cancer. The patient also had metastasis to the right femur for which she had orthopedic stabilization surgery for the right femur. The patient was started on physical therapy and discharged to subacute rehabilitation at [place]. The patient had also oncology consultation done by Dr. Frost, and the patient is scheduled to have an evaluation for radiation therapy as an outpatient by Dr. Hampton in [facility]. FINAL DIAGNOSES: 1. Inflammatory lobulated breast cancer with metastasis to the brain and the right femur. 2. Hypertension. 3. Hypothyroidism. 4. History of systemic lupus erythematosus. Joss MD [place]
== END 2018-04-05 16:50 | DRG 1 ==
LOC: C.ER 14:45 → C.9E 17:36 → C.3T 18:29 → OBSVTOIN 03-20 11:00 → C.9I 03-20 17:22 → C.3T 03-24 13:55 → C.9I 03-24 14:13 → C.3T 03-24 14:51 → C.6T 03-28 14:40
PROVIDERS: ADMIT Internal Medicine; ATTEND Internal Medicine
PROC: 00BC0ZZ Excision of Cerebellum, Open Approach (ICD-10-PCS; principal; 2018-03-21 11:30)
PROC: 0QS604Z Reposition Right Upper Femur with Internal Fixation Device, Open Approach (ICD-10-PCS; 2018-03-28)
DX: C79.31 Secondary malignant neoplasm of brain (principal); C79.51 Secondary malignant neoplasm of bone; M84.451A Pathological fracture, right femur, initial encounter for fracture; C50.911 Malignant neoplasm of unspecified site of right female breast; D62 Acute posthemorrhagic anemia; G93.6 Cerebral edema; M32.9 Systemic lupus erythematosus, unspecified; E03.9 Hypothyroidism, unspecified; F41.9 Anxiety disorder, unspecified; K59.00 Constipation, unspecified; M06.9 Rheumatoid arthritis, unspecified; N64.4 Mastodynia; N64.59 Other signs and symptoms in breast; Z83.3 Family history of diabetes mellitus

== ENCOUNTER 2018-05-03 11:08 | Outpatient (CLI) | payer OTHER | END 2018-05-03 11:09 | disposition home or self-care (01) | LOC: C.CTH 11:09 | DX: C79.31 Secondary malignant neoplasm of brain (principal) ==

== ENCOUNTER 2018-05-23 11:12 | Outpatient (CLI) | payer OTHER | END 2018-05-23 11:13 | disposition home or self-care (01) | LOC: C.MRIC 11:13 ==

== ENCOUNTER 2018-06-01 09:07 | Outpatient (CLI) | payer OTHER | END 2018-06-01 09:08 | disposition home or self-care (01) | LOC: C.VASC 09:07 ==

== ENCOUNTER 2018-06-13 11:59 | Outpatient (CLI) | payer OTHER, MEDICARE | END 2018-06-13 12:00 | disposition home or self-care (01) | LOC: C.MRIC 12:00 ==

== ENCOUNTER 2018-06-25 15:05 | Outpatient (CLI) | payer OTHER, MEDICARE | END 2018-06-25 15:06 | disposition home or self-care (01) | LOC: C.MRIC 15:06 | DX: C79.31 Secondary malignant neoplasm of brain (principal); C50.919 Malignant neoplasm of unspecified site of unspecified female breast; R51 Headache ==

== ENCOUNTER 2018-07-27 10:54 | Outpatient (CLI) | payer OTHER | END 2018-07-27 10:55 | disposition home or self-care (01) | LOC: C.CARD 10:54 | DX: C50.011 Malignant neoplasm of nipple and areola, right female breast (principal) ==